=== PATIENT | female | born 1960 | race Caucasian/White ===

== ENCOUNTER 2020-11-30 19:57 | Emergency (ER) | payer MEDICARE, SELFPAY ==
[2020-11-30 19:56] VITALS: BP 136/103; PULSE 96; RESP 18; TEMP 36.8; O2SAT 98; BMI 41.1
[2020-11-30 20:03] VITALS: BMI 41.1
--- NOTE | 2020-11-30 20:04 | CT_ITS ---
PROCEDURE: CT ABDOMEN PELVIS W CON CLINICAL INDICATION: abd pain Right-sided COMPARISON: No exams were available for comparison TECHNIQUE: IV Contrast: 75ML OPTIRAY 350 Oral Contrast none given Axial images obtained with sagittal and coronal reformats. All CT scans at the facility use one or more dose reduction, viz: automated exposure control, ma/kV adjustment per patient size (including targeted exams where dose is matched to indication, i.e. head), or iterative reconstruction technique. FINDINGS: Lower thorax: No acute finding ABDOMEN: Liver: No masses or biliary dilatation. Gallbladder: Nondistended. No radio opaque stones. Pancreas: No masses or peripancreatic fluid collections. Spleen: unremarkable Adrenals: unremarkable Kidneys/ureters: unremarkable ABDOMEN & PELVIS: Stomach bowel: There is a moderately large sliding hiatal hernia. Stomach appears normal. The small bowel appears normal. The appendix is well-visualized and is normal caliber partially air-filled. There is moderate scattered stool and gas throughout the colon. Peritoneum: No abnormal fluid collections. No obvious inflammatory changes. No free air. Lymph nodes: No enlarged lymph nodes apparent. Vasculature: No evidence of abdominal aortic aneurysm. No retroperitoneal hemorrhage evident. Bones: There is a non recent compression fracture of L1 with approximately 75 percent loss of height centrally and anteriorly. PELVIS: Reproductive: The uterus is normal in size and in the midline. Bladder: The urinary bladder is partially decompressed but otherwise appears normal . There is no free fluid in the pelvis. Appendix: Normal IMPRESSION: 1. Moderately large hiatal hernia. 2. Normal appearing appendix 2. Old compression fracture L1 as noted Dictated by: Dr. Geronimo Viera MD 12/01/2020 08:42 Dr. Geronimo Viera MD in [place] 12/01/2020 08:42
--- NOTE | 2020-11-30 20:09 | HMH.EDNVD ---
ED Disposition Clinical Impression: Abdominal pain Qualifiers: Abdominal location: right upper quadrant Qualified Code(s): R10.11 - Right upper quadrant pain Disposition: Home, Self-Care Condition on Discharge: Good Instructions: DI for Acute Abdominal Pain Additional Instructions: see pcp for follow up and stop nsaif Referrals: PCP,No [Primary Care Provider] - - Critical Care Critical Care Time: No Attestation: On , the high probability of a clinically significant, sudden or life threatening deterioration of the following system(s) required my full and direct attention, intervention and personal management. The time I documented below is in addition to time spent performing reported procedures but includes the following listed in this critical care notation. Medical Decision Making - Medical Records Medical records reviewed: Yes: I reviewed the patient's medical records. - Juan Luis Inquiry Pt receiving controlled substance: No Vital Signs: 11/30/20 19:56 Temperature 98.2 F Temperature Source Oral Pulse Rate [Right] 96 H Respiratory Rate 18 Blood Pressure [Right Arm] 136/103 H Blood Pressure Mean [Right Arm] 114 Blood Pressure Source [Right Arm] Automatic Cuff Blood Pressure Position [Right Arm] Supine 02 Sat by Pulse Oximetry 98 Oxygen Delivery Method Room Air - Lab Data Lab results reviewed: Yes: I reviewed the patient's lab results. Lab Results 11/30/20 20:00: WBC 10.7, RBC 4.77, Hgb 14.4, Hct 44.7, MCV 93.7, MCH 30.2, MCHC 32.2, RDW 13.2, Plt Count 307, MPV 7.7, Neut % (Auto) 59.1, Lymph % (Auto) 33.5, [place] % (Auto) 5.4, Eos % (Auto) 1.3, Baso % (Auto) 0.7, Neut # (Auto) 6.3, Lymph # (Auto) 3.6, Ev[place] # (Auto) 0.6, Eos # (Auto) 0.1, Baso # (Auto) 0.1, ESR 21 11/30/20 20:00: Sodium 137, Potassium 3.2 L, Chloride 99, Carbon Dioxide 33 H, Anion Gap 8.2, BUN 26 H, Creatinine 1.00, Estimated Creat Clear 92, Estimated GFR 56 L, Est GFR ( Amer) 68, Glucose 108 H, Calcium 9.4, Total Bilirubin 0.4, AST 30, ALT 17, Alkaline Phosphatase 105, C-Reactive Protein 1.2, Total Protein 7.6, Albumin 4.7, Globulin 2.9, Albumin/Globulin Ratio 1.6, Amylase 54, Procalcitonin 0.038 11/30/20 20:00: Lipase 48 11/30/20 21:20: Urine Color Yellow, Urine Appearance Clear, Urine pH 6.0, Ur Specific [place] 1.015, Urine Protein Negative, Urine Glucose (UA) Negative, Urine Ketones Negative, Urine Blood Negative, Urine Nitrate Negative, Urine Bilirubin Negative, Urine Urobilinogen 0.2, Ur Leukocyte Esterase Negative, Urine WBC Occasional, Amorphous Sediment Trace Result diagrams: 11/30/20 20:00 11/30/20 20:00 Orders (Tests/Meds): ED MEDICATIONS Generic Name Dose Route Start Last Admin Trade Name Freq PRN Reason Stop Dose Admin Sodium Chloride 1,000 mls @ 999 mls/hr 11/30/20 20:15 11/30/20 20:13 Sod Chlor 0.9% 1000ml Bag IV 11/30/20 21:15 999 mls/hr .Q1H1M DEYVI Administration Sodium Chloride 8 ml 11/30/20 20:07 Sodium Chloride 0.9% 10ml Vial IV 12/30/20 20:06 NEEDED PRN dilute pepcid Discontinued Medications Generic Name Dose Route Start Last Admin Trade Name Freq PRN Reason Stop Dose Admin Acetaminophen/Codeine Phosphate 1 joe 11/30/20 21:47 Acetaminophen 300mg W/Codeine 30mg Take Home Pack (6) PO 11/30/20 21:48 ONCE ONE Famotidine 20 mg 11/30/20 20:07 11/30/20 20:12 Famotidine 20mg/2ml Vial IV 11/30/20 20:08 20 mg ONCE ONE Administration Iopamidol 75 ml 11/30/20 20:49 11/30/20 20:50 Iopamidol-370 (76%);100ml Bottle IV 11/30/20 20:50 75 ml ONCE ONE Administration Ketorolac Tromethamine 30 mg 11/30/20 20:04 11/30/20 20:12 Ketorolac 30mg/Ml Vial IV 11/30/20 20:05 30 mg ONCE ONE Administration Metoclopramide HCl 10 mg 11/30/20 20:07 11/30/20 20:12 Metoclopramide Hcl 10mg/2ml Vial IVP 11/30/20 20:08 10 mg ONCE ONE Administration Ondansetron HCl 4 mg 11/30/20 20:04 11/30/20 20:12 Ondansetron 4mg/2ml Vial IV 11/30/20 20:
[2020-11-30 20:12] LABS: Chloride 99 mmol/L (98-107); Potassium 3.2 mmoL/L (3.5-5.1); Sodium 137 mmol/L (136-145)
[2020-11-30 20:14] LABS: Basophils # 0.1 K/mm3 (0-0.2); Basophils % 0.7 % (0.1-2.0); Eosinophils # 0.1 K/mm3 (0.0-0.4); Eosinophils % 1.3 % (0.1-12.0); Hematocrit 44.7 % (37.0-47.0); Hemoglobin 14.4 g/dL (12.2-16.2); Lymphocytes # 3.6 K/mm3 (0.7-4.5); Lymphocytes % 33.5 % (10-50); Mean Corpuscular HGB Conc 32.2 g/dL (31.8-35.4); Mean Corpuscular Hemoglobin 30.2 pg (27.0-31.2); Mean Corpuscular Volume 93.7 fl (81-99); Mean Platelet Volume 7.7 fl (7.4-10.4); Monocytes # 0.6 K/mm3 (0.1-1.0); Monocytes % 5.4 % (1.7-9.3); Neutrophils # 6.3 K/mm3 (1.8-7.8); Neutrophils % 59.1 % (37.0-80.0); Platelet Count 307 K/mm3 (142-424); Red Blood Count 4.77 M/mm3 (4.20-5.40); Red Cell Distribution Width 13.2 % (11.5-17.5); White Blood Count 10.7 K/mm3 (4.8-10.8)
[2020-11-30 20:15] LABS: Alanine Aminotransferase 17 U/L (12-78); Albumin Level 4.7 g/dl (3.5-5.0); Albumin/Globulin Ratio 1.6 (1.1-1.8); Alkaline Phosphatase 105 U/L (38-126); Amylase 54 U/L (30-110); Anion Gap 8.2 mEq/L (5-15); Aspartate Amino Transferase 30 U/L (14-36); Bilirubin,Total 0.4 mg/dl (0.2-1.3); Blood Urea Nitrogen 26 mg/dl (7-17); Calcium 9.4 mg/dl (8.4-10.2); Carbon Dioxide 33 mmol/L (22.0-30.0); Creatinine Clearance Estimated 92 mL/min (50-200); Estimated Glomerular Filt Rate 56 ml/min (>60); GFR (African American) 68 ML/MIN (>60); Globulin 2.9 g/dL (1.3-3.2); Glucose 108 mg/dl (74-100); Lipase 48 U/L (23-300); Total Protein,Serum 7.6 g/dl (6.3-8.2)
[2020-11-30 20:21] LABS: C-Reactive Protein 1.2 mg/L (0-4)
[2020-11-30 20:43] LABS: Erythrocyte Sedimentation Rate 21 mm/hr (0-30)
[2020-11-30 20:49] LABS: Procalcitonin 0.038 ng/mL (0.0-2.0)
[2020-11-30 21:24] LABS: Microscopic, Urine URINE MICROSCOPIC (MICROSCOPIC)
[2020-11-30 21:26] LABS: Appearance,Urine CLEAR (Clear); Bilirubin,Urine Negative (Negative); Blood, Urine Negative (Negative); Color,Urine YELLOW (Yellow); Glucose,Urine (UA) Negative (Negative); Ketones,Urine Negative (Negative); Leukocyte Esterase,Urine Negative (Negative); Nitrate,Urine Negative (Negative); Protein,Urine Negative (Negative); Specific Gravity, Urine 1.015 (1.005-1.030); Urobilinogen,Urine 0.2 EU/dl (0.2)
[2020-11-30 21:29] LABS: WBC,Urine Occasional #/hpf (0-3)
[2020-11-30 21:30] LABS: Amorphous Sediment,Urine Trace /lpf
[2020-11-30 22:11] VITALS: BP 132/94; PULSE 92; RESP 18; TEMP 36.8; O2SAT 96
== END 2020-11-30 22:15 | disposition home or self-care (01) ==
PROVIDERS: Emergency Provider Emergency Medicine
DX: R10.11 Right upper quadrant pain (principal); R10.13 Epigastric pain; K21.9 Gastro-esophageal reflux disease without esophagitis
CPT/HCPCS: 74177; 80053; 81001; 82150; 83690; 84145; 85025; 85651; 86140; 96365; 96375; 99283; J2405; Q9967

== ENCOUNTER 2020-12-05 16:45 | Emergency (ER) | payer MEDICARE, SELFPAY ==
[2020-12-05 16:47] VITALS: BP 147/84; PULSE 87; RESP 20; TEMP 36.8; O2SAT 96; BMI 40.2
--- NOTE | 2020-12-05 16:59 | US_ITS ---
PROCEDURE: US ABDOMEN LIMITED CLINICAL INDICATION: RUQ pain COMPARISON: CT CT ABDOMEN PELVIS W CON from 11/30/2020 FINDINGS: PANCREAS: Pancreas is not well delineated due to overlying bowel gas. . LIVER: No focal liver lesions demonstrated. Homogeneous echogenicity. No intrahepatic biliary ductal dilatation evident. There is appropriate direction of blood flow within a non dilated portal vein RIGHT KIDNEY: Unremarkable. Normal size and echogenicity. No hydronephrosis GALLBLADDER: No gallstones, gallbladder wall thickening, pericholecystic fluid, or biliary dilatation. IMPRESSION: Unremarkable limited abdominal ultrasound as detailed above disc Poor visualization of the pancreas Dictated by: Zac Pruitt MD 12/05/2020 17:58 Zac Pruitt MD in [place] 12/05/2020 17:58
[2020-12-05 17:00] VITALS: BP 128/73; PULSE 76; O2SAT 98
--- NOTE | 2020-12-05 17:17 | HMH.EDGENADL ---
ED Disposition Clinical Impression: Right upper quadrant pain Disposition: Home, Self-Care Condition on Discharge: Good Additional Instructions: Follow-up with your primary care physician and gastroenterology for a HIDA scan. Otherwise return to the emergency department for worsening pain vomiting or any other concerns within the next 8 hours Prescriptions: Naproxen Sodium [Naproxen 220mg Tab] 220 mg PO TID 10 Days #20 tab Transmission Status[id number] Ondansetron [Zofran 4mg ODT] 4 mg PO TIDP PRN #15 tab PRN Reason: Nausea Transmission Status[id number] Referrals: Ronal Duong APRN [Primary Care Provider] - - Critical Care Critical Care Time: No Attestation: On 12/05/20, the high probability of a clinically significant, sudden or life threatening deterioration of the following system(s) required my full and direct attention, intervention and personal management. The time I documented below is in addition to time spent performing reported procedures but includes the following listed in this critical care notation. Medical Decision Making - Medical Records Medical records reviewed: Yes: I reviewed the patient's medical records. - Juan Luis Inquiry Pt receiving controlled substance: No Vital Signs: 12/05/20 16:47 12/05/20 17:00 Temperature 98.3 F Temperature Source Oral Pulse Rate 76 Pulse Rate [Left Radial] 87 Respiratory Rate 20 Blood Pressure 128/73 Blood Pressure [Right Arm] 147/84 H Blood Pressure Mean 96 Blood Pressure Mean [Right Arm] 105 Blood Pressure Source [Right Arm] Automatic Cuff 02 Sat by Pulse Oximetry 96 98 Oxygen Delivery Method Room Air - Lab Data Lab Results 12/05/20 17:47: WBC 10.4, RBC 4.85, Hgb 15.1, Hct 44.2, MCV 91.1, MCH 31.2, MCHC 34.2, RDW 13.3, Plt Count 292, MPV 7.6, Neut % (Auto) 64.5, Lymph % (Auto) 27.9, [place] % (Auto) 5.9, Eos % (Auto) 1.2, Baso % (Auto) 0.5, Neut # (Auto) 6.7, Lymph # (Auto) 2.9, [place] # (Auto) 0.6, Eos # (Auto) 0.1, Baso # (Auto) 0.1 12/05/20 17:47: Sodium 137, Potassium 3.9, Chloride 102, Carbon Dioxide 30, Anion Gap 8.9, BUN 26 H, Creatinine 1.40 H, Estimated Creat Clear 64, Estimated GFR 38 L, Est GFR ( Amer) 46 L, Glucose 97, Calcium 10.0, Total Bilirubin 0.5, AST 32, ALT 15, Alkaline Phosphatase 98, Total Protein 8.1, Albumin 4.8, Globulin 3.3 H, Albumin/Globulin Ratio 1.5, Lipase 38 Result diagrams: 12/05/20 17:47 12/05/20 17:47 Orders (Tests/Meds): ED MEDICATIONS Generic Name Dose Route Start Last Admin Trade Name Freq PRN Reason Stop Dose Admin Sodium Chloride 1,000 mls @ 999 mls/hr 12/05/20 17:00 12/05/20 17:48 Sod Chlor 0.9% 1000ml Bag IV 12/05/20 18:00 999 mls/hr .Q1H1M DEYVI Administration Discontinued Medications Generic Name Dose Route Start Last Admin Trade Name Freq PRN Reason Stop Dose Admin Morphine Sulfate 4 mg 12/05/20 16:59 12/05/20 17:46 Morphine 4mg/Ml Syringe IV 12/05/20 17:00 4 mg ONCE ONE Administration Ondansetron HCl 4 mg 12/05/20 16:59 12/05/20 17:47 Ondansetron 4mg Odt SL 12/05/20 17:00 4 mg ONCE ONE Administration Medical Decision Narrative: 60-year-old female presents with right upper quadrant pain. She had recent CT abdomen pelvis that was negative and there is no new changes since that time. It is recommended that she obtain right upper quadrant ultrasound to assess her gallbladder today. No fever no chills. Laboratory evaluation as well obtained. I doubt perforation obstruction or ischemia based on physical exam and atypical symptoms for pulmonary embolism as well. Given morphine for symptomatic relief Bladder ultrasound shows no evidence of acute cholecystitis. Plan to recommend outpatient evaluation for HIDA scan follow-up with GI. Laboratory evaluation otherwise unremarkable except for acute kidney injury. Recommend fluids as well and discharged with return precautions General Adul
[2020-12-05 17:58] LABS: Basophils # 0.1 K/mm3 (0-0.2); Basophils % 0.5 % (0.1-2.0); Eosinophils # 0.1 K/mm3 (0.0-0.4); Eosinophils % 1.2 % (0.1-12.0); Hematocrit 44.2 % (37.0-47.0); Hemoglobin 15.1 g/dL (12.2-16.2); Lymphocytes # 2.9 K/mm3 (0.7-4.5); Lymphocytes % 27.9 % (10-50); Mean Corpuscular HGB Conc 34.2 g/dL (31.8-35.4); Mean Corpuscular Hemoglobin 31.2 pg (27.0-31.2); Mean Corpuscular Volume 91.1 fl (81-99); Mean Platelet Volume 7.6 fl (7.4-10.4); Monocytes # 0.6 K/mm3 (0.1-1.0); Monocytes % 5.9 % (1.7-9.3); Neutrophils # 6.7 K/mm3 (1.8-7.8); Neutrophils % 64.5 % (37.0-80.0); Platelet Count 292 K/mm3 (142-424); Red Blood Count 4.85 M/mm3 (4.20-5.40); Red Cell Distribution Width 13.3 % (11.5-17.5); White Blood Count 10.4 K/mm3 (4.8-10.8)
[2020-12-05 19:05] LABS: Chloride 102 mmol/L (98-107); Potassium 3.9 mmoL/L (3.5-5.1); Sodium 137 mmol/L (136-145)
[2020-12-05 19:07] LABS: Alanine Aminotransferase 15 U/L (12-78); Alkaline Phosphatase 98 U/L (38-126); Aspartate Amino Transferase 32 U/L (14-36); Bilirubin,Total 0.5 mg/dl (0.2-1.3); Blood Urea Nitrogen 26 mg/dl (7-17); Creatinine Clearance Estimated 64 mL/min (50-200); Estimated Glomerular Filt Rate 38 ml/min (>60); GFR (African American) 46 ML/MIN (>60)
[2020-12-05 19:08] LABS: Albumin Level 4.8 g/dl (3.5-5.0); Albumin/Globulin Ratio 1.5 (1.1-1.8); Anion Gap 8.9 mEq/L (5-15); Carbon Dioxide 30 mmol/L (22.0-30.0); Globulin 3.3 g/dL (1.3-3.2); Glucose 97 mg/dl (74-100); Lipase 38 U/L (23-300); Total Protein,Serum 8.1 g/dl (6.3-8.2)
[2020-12-05 19:43] VITALS: BP 143/86; PULSE 84; RESP 16; TEMP 36.8; O2SAT 97
== END 2020-12-05 19:51 | disposition home or self-care (01) ==
PROVIDERS: Emergency Provider Emergency Medicine; PCP Nurse Practitioner Family
DX: R10.11 Right upper quadrant pain (principal); K21.9 Gastro-esophageal reflux disease without esophagitis; I10 Essential (primary) hypertension; E66.01 Morbid (severe) obesity due to excess calories; Z68.41 Body mass index [BMI] 40.0-44.9, adult
CPT/HCPCS: 76705; 80053; 83690; 85025; 96365; 96375; 99283

== ENCOUNTER → 2020-12-14 08:50 | Outpatient (CLI) | payer MEDICARE, SELFPAY ==
--- NOTE | 2020-12-14 08:53 | CA_ITS ---
APPROVED REPORT EXAM: Comprehensive 2D, Doppler, and color-flow Echocardiogram [employer] Professor: Na Moran RVT Ht: 5 ft 1 in Wt: 212lbs BSA: 1.94 BP: 138/98 mmHg Indications: GASTON,THANG,SOA,OBESITY TDS-BODYHABITUS 2D Dimensions LVOT 1.73 cm (M/F) 1.5-2.5 LA Volume 19.80 mL LA Volume Index 10.25 mL/m2 (M/F) 16-34 M-Mode Dimensions RVDd 2.46 cm (0.9-2.6) LA Diam 3.30 cm (1.9-4.0) LVDd 4.14 cm (3.5-5.7) Ao Diam 2.66 cm (2.0-3.7) LVDs 2.68 cm (3.5-5.7) IVSd 1.11 cm (0.6-1.1) PWd 0.89 cm (0.6-1.1) EF (Teich) 65.10% FS 35.30% EDV (Teich) 75.90 mL TAPSE 2.00 (<1.7) ESV (Teich) 26.50 mL LV Diastology E Decel Time 263.00 (160-240 msec) E/A Ratio 0.5 MED E' 6.60 (< 7 cm/sec) E'/MED E' Ratio 5.76 (>14) LAT E' 7.00 (<10 cm/sec) E/LAT E' Ratio 5.43 (>14) Mitral Valve MV E Max Farhan. 38.00 (40-130 cm/s) MV A Velocity 72.00 (40-130 cm/s) E/A Ratio 0.53 MV Decel. Time 263.00 (160-240 ms) MV PHT 77.00 ms Pulmonary Valve PV Peak Velocity 71.00 (50-150 cm/s) Tricuspid Valve TR P. Velocity 227.00 cm/s RAP Estimate 10.00 mmHg RVSP 30.50 mmHg Left Ventricle Left atrium is mildly enlarged, left ventricle is normal size, mild concentric left ventricular hypertrophy, visually estimated ejection fraction 55% with no regional wall motion abnormality, grade 1 diastolic dysfunction seen without tissue Doppler evidence of raise left atrial pressure. Right Ventricle Right atrium and right ventricle are normal size and contractility. Aortic Valve Aortic valve is minimally thickened and fibrosed, there is no aortic stenosis or aortic insufficiency. Mitral Valve Mitral valve grossly normal, there is mild mitral regurgitation. Tricuspid Valve Tricuspid valve grossly normal, there is mild tricuspid regurgitation, tricuspid regurgitation jet velocity is inadequate for calculation of the right ventricular systolic pressure. Pulmonic Valve Pulmonic valve is poorly visualized. Great Vessels Aortic root is normal size. Pericardium No significant pericardial effusion noted. Conclusion 1. Mildly enlarged left atrium, normal left ventricular size, mild concentric left ventricular hypertrophy, visually estimated ejection fraction 55% with no regional wall motion abnormality, grade 1 diastolic dysfunction seen without tissue Doppler evidence of raise left atrial pressure. 2. Mild mitral and tricuspid regurgitation. 3. No significant pericardial effusion noted. Electronically signed by : Chris Storey, 12/14/2020 14:50:53
--- NOTE | 2020-12-14 09:35 | NM_ITS ---
PROCEDURE: NM HEPATOBILIARY W PHARM CLINICAL INDICATION: RUQ pain Right upper quadrant pain COMPARISON: US US ABDOMEN LIMITED from 12/05/2020 TECHNIQUE: DOSE: 7.98 mCi technetium Choletec. Ensure was used for fatty meal FINDINGS: Homogeneous activity is present within the hepatic parenchyma. Activity is present in the gallbladder by 45 minutes. Activity is present in the small bowel by 5 minutes. The gallbladder ejection fraction is calculated to be 29 percent. No pain reported with fatty meal. IMPRESSION: No evidence of common or cystic duct obstruction. There is slight delayed gallbladder visualization seen at 45 minutes. The gallbladder ejection fraction is also slightly low at 29 percent normal being greater than 35 percent. These findings could indicate gallbladder dyskinesia. Please correlate with clinical findings. Dictated by: Zac Pruitt MD 12/17/2020 12:22 Zac Pruitt MD in [place] 12/17/2020 12:22
== END ==
PROVIDERS: PCP Nurse Practitioner Family; Visit Provider Nurse Practitioner Family
DX: R06.00 Dyspnea, unspecified (principal); R10.11 Right upper quadrant pain
CPT/HCPCS: 78227; 93306; A9537

== ENCOUNTER 2020-12-31 13:00 | Outpatient (RCR) | payer MEDICARE, SELFPAY ==
--- NOTE | 2020-12-25 10:13 | HMH.PTOPWND ---
Rehab Outpt Wound Evaluation Rehab OP Wound Evaluation Start: 12/25/20 09:51 Freq: Status: Active Protocol: Document 12/25/20 10:06 ARIES (Rec: 12/25/20 10:13 ARIES [id number]) Electronically Signed By Fausto Tristan, PT 12/25/20 10:06 Subjective/History History History Pt is 60 yowf who presents with c/o B LE edema, for years and years. She reports increased feelings of heaviness and tightness with edema worse when sitting in dependent position. She also has increased tenderness to palpation B in the gaitor area . She reports she had not been taking diruetics for many years now, but has been taking them as recently prescribed which has helped reduce her swelling. She reports hx of chronic low back pain, HTN, GERD, and is planning for a CCY soon. Subjective Subjective She reports pain in B LE at worst is 7/10. She also reports intermittent tingling and pain that is worse with increased edema. No pitting edema noted at this time, tenderness to palpation 1/4. Lymphedema Eval Classification of Lymphedema Secondary Lymphedema Yes: Likely CHF Stemmer's sign Stemmer's Sign no Stage of Lymphedema Lymphedema stages Stage 0 (subjective c/o heaviness and aching) Skin Changes Dry Skin Yes Skin Folds Yes Redness Yes Brittle Uneven Nails Yes Other Changes Yes Pain Scale Pain Scale (0-10) 7 Affected Extremities Areas Affected by Lymphedema/Edema Right Lower Extremity,Left Lower Extremity Manual Lymphatic Drainage Treatment Area MLD Treatment Area Right Lower Extremity,Left Lower Extremity Wound Problems/Impairments Impairments Problems/Impairmments Palpation Tenderness,Impaired Endurance,Impaired Walking, Impaired Standing,Increased Edema,Lymphedema Present, Subjective C/O Pain,Impaired Self Care/Self Managem
== END 2020-12-31 13:05 | disposition home or self-care (01) ==
LOC: PT 13:00
PROVIDERS: PCP Nurse Practitioner Family; Visit Provider Urology
DX: I89.0 Lymphedema, not elsewhere classified (principal)
CPT/HCPCS: 97162

== ENCOUNTER → 2021-01-02 09:48 | Outpatient (CLI) | payer MEDICARE, SELFPAY ==
--- NOTE | 2021-01-02 10:46 | ECG_ITS ---
APPROVED REPORT Exam: Resting ECG HR:87 bpm ECG Measurements Heart Rate 87 AXES NV 142 P 83 QRSd 84 QRS 26 QT 374 T 68 QTc 450 Conclusion Normal sinus rhythm ST abnormality, possible electrolyte effect Abnormal ECG Electronically signed by : Vlad Pang, 01/02/2021 16:56:21
[2021-01-02 11:14] LABS: Chloride 101 mmol/L (98-107); Sodium 137 mmol/L (136-145)
[2021-01-02 11:17] LABS: Alanine Aminotransferase 19 U/L (12-78); Albumin Level 4.8 g/dl (3.5-5.0); Albumin/Globulin Ratio 1.7 (1.1-1.8); Alkaline Phosphatase 99 U/L (38-126); Anion Gap 14.2 mEq/L (5-15); Aspartate Amino Transferase 29 U/L (14-36); Bilirubin,Total 0.6 mg/dl (0.2-1.3); Blood Urea Nitrogen 24 mg/dl (7-17); Carbon Dioxide 26 mmol/L (22.0-30.0); Estimated Glomerular Filt Rate 56 ml/min (>60); GFR (African American) 68 ML/MIN (>60); Globulin 2.8 g/dL (1.3-3.2); Glucose 105 mg/dl (74-100); Potassium 4.2 mmoL/L (3.5-5.1); Total Protein,Serum 7.6 g/dl (6.3-8.2)
[2021-01-02 12:11] LABS: Coronavirus 19 IgG Antibody Positive (Negative); Coronavirus 19 IgM Antibody Negative (Negative)
== END ==
PROVIDERS: Visit Provider Surgery
DX: R10.11 Right upper quadrant pain (principal)
CPT/HCPCS: 36415; 80053; 86328; 93005

== ENCOUNTER 2021-01-02 10:44 | Emergency (ER) | payer MEDICARE, SELFPAY ==
[2021-01-02] VITALS (7 sets, daily range): BP systolic 104–116; BP diastolic 53–65; PULSE 58–82; RESP 13–18; TEMP 36.4; O2SAT 92–98; BMI 36.8
--- NOTE | 2021-01-02 10:45 | PC.NURSE ---
fingerstick 113 mg/dl
--- NOTE | 2021-01-02 10:50 | HMH.EDGENADL ---
ED Disposition Clinical Impression: Vasovagal syncope Disposition: Home, Self-Care Condition on Discharge: Good Instructions: DI for Syncope in Adults (Fainting) Additional Instructions: Return to the emergency department if fainting recurs. Referrals: Ronal Duong APRN [Primary Care Provider] - - Critical Care Critical Care Time: No Attestation: On , the high probability of a clinically significant, sudden or life threatening deterioration of the following system(s) required my full and direct attention, intervention and personal management. The time I documented below is in addition to time spent performing reported procedures but includes the following listed in this critical care notation. Medical Decision Making - Juan Luis Inquiry Pt receiving controlled substance: No Vital Signs: 01/02/21 10:55 01/02/21 11:01 01/02/21 11:30 Temperature 97.6 F Temperature Source Oral Pulse Rate 82 58 L Pulse Rate [Left Radial] 78 Respiratory Rate 16 14 13 Blood Pressure 109/58 L 116/54 L Blood Pressure [Right Arm] 109/58 L Blood Pressure Mean 75 Blood Pressure Mean [Right Arm] 75 Blood Pressure Source [Right Arm] Automatic Cuff Blood Pressure Position [Right Arm] Sitting 02 Sat by Pulse Oximetry 92 L 92 L 97 Oxygen Delivery Method Room Air Room Air - Lab Data Lab Results 01/02/21 10:53: WBC 11.7 H, RBC 4.84, Hgb 14.9, Hct 45.0, MCV 93.1, MCH 30.8, MCHC 33.1, RDW 13.6, Plt Count 352, MPV 7.9, Neut % (Auto) 52.5, Lymph % (Auto) 40.6, [place] % (Auto) 5.1, Eos % (Auto) 1.3, Baso % (Auto) 0.5, Neut # (Auto) 6.2, Lymph # (Auto) 4.8 H, [place] # (Auto) 0.6, Eos # (Auto) 0.2, Baso # (Auto) 0.1 01/02/21 10:53: Sodium 136, Potassium 3.1 L D, Chloride 101, Carbon Dioxide 23, Anion Gap 15.1 H, BUN 24 H, Creatinine 1.10 H, Estimated Creat Clear 83, Estimated GFR 50 L, Est GFR ( Amer) 61, Glucose 171 H D, Calcium 9.9 Result diagrams: 01/02/21 10:53 01/02/21 10:53 Orders (Tests/Meds): ED MEDICATIONS Discontinued Medications Generic Name Dose Route Start Last Admin Trade Name Madhu PRN Reason Stop Dose Admin Ondansetron HCl 4 mg 01/02/21 11:01 01/02/21 11:08 Ondansetron 4mg/2ml Vial IV 01/02/21 11:02 4 mg ONCE ONE Administration Potassium Chloride 40 meq 01/02/21 11:26 01/02/21 11:49 Potassium Chloride 20meq Tab PO 01/02/21 11:27 40 meq ONCE ONE Administration Sodium Chloride 1,000 ml 01/02/21 11:02 01/02/21 11:09 Sodium Chloride 0.9% 1000ml Bag IV 01/02/21 11:03 1,000 ml BOLUS ONE Administration - ECG Data Tracing #1 EKG interpreted by Antonio Torres MD: Rhythm: sinus Rate: 87 [place]: normal Ectopy: none Conduction: normal ST Segment Changes: none T Wave Changes: none Q Waves: none No evidence of acute ischemia or injury Baseline wander present, but I consider the EKG adequate for accurate interpretation. Prior electrocardiagrams reviewed. No change from prior tracings. - Reevaluation(s) Time: 11:54 Reevaluation #1: Feeling better, states she is getting her energy back. Pallor has markedly improved. Time: 13:19 Reevaluation #3: Feels good, I'm waiting to get released . General Adult HPI - General Stated complaint: syncopal Time Seen by Provider: 01/02/21 10:50 - History of Present Illness HPI narrative: The patient is brought from the lab after syncopal episode. Says that she felt fine this morning before coming to have her blood drawn for preoperative testing for cholecystectomy this Thursday. She says she began feeling nauseated and sweaty. No chest pain or shortness of breath. Currently just feels very weak and slightly nauseated. Has a history of getting presyncopal when she has blood drawn, but this was her first episode of syncope when getting blood drawn. She also has a stress test scheduled for tomorrow. - Related Data Home Medications Medication Instructions Recorded Confirmed Furosemide [Furosem
[2021-01-02 11:12] LABS: Chloride 101 mmol/L (98-107); Sodium 136 mmol/L (136-145)
[2021-01-02 11:13] LABS: Potassium 3.1 mmoL/L (3.5-5.1)
[2021-01-02 11:15] LABS: Blood Urea Nitrogen 24 mg/dl (7-17); Creatinine Clearance Estimated 83 mL/min (50-200); Estimated Glomerular Filt Rate 50 ml/min (>60); GFR (African American) 61 ML/MIN (>60)
[2021-01-02 11:16] LABS: Anion Gap 15.1 mEq/L (5-15); Basophils # 0.1 K/mm3 (0-0.2); Basophils % 0.5 % (0.1-2.0); Calcium 9.9 mg/dl (8.4-10.2); Carbon Dioxide 23 mmol/L (22.0-30.0); Eosinophils # 0.2 K/mm3 (0.0-0.4); Eosinophils % 1.3 % (0.1-12.0); Glucose 171 mg/dl (74-100); Hemoglobin 14.9 g/dL (12.2-16.2); Lymphocytes # 4.8 K/mm3 (0.7-4.5); Lymphocytes % 40.6 % (10-50); Mean Corpuscular HGB Conc 33.1 g/dL (31.8-35.4); Mean Corpuscular Hemoglobin 30.8 pg (27.0-31.2); Mean Corpuscular Volume 93.1 fl (81-99); Mean Platelet Volume 7.9 fl (7.4-10.4); Monocytes # 0.6 K/mm3 (0.1-1.0); Monocytes % 5.1 % (1.7-9.3); Neutrophils # 6.2 K/mm3 (1.8-7.8); Neutrophils % 52.5 % (37.0-80.0); Platelet Count 352 K/mm3 (142-424); Red Blood Count 4.84 M/mm3 (4.20-5.40); Red Cell Distribution Width 13.6 % (11.5-17.5); White Blood Count 11.7 K/mm3 (4.8-10.8)
== END 2021-01-02 13:55 | disposition home or self-care (01) ==
PROVIDERS: Emergency Provider Emergency Medicine; PCP Nurse Practitioner Family
DX: R55 Syncope and collapse (principal); I10 Essential (primary) hypertension; Z20.822 Contact with and (suspected) exposure to COVID-19; K21.9 Gastro-esophageal reflux disease without esophagitis
CPT/HCPCS: 36415; 80048; 80053; 85025; 86328; 93005; 96365; 96375; 99282; J2405

== ENCOUNTER → 2021-01-02 20:06 | Outpatient (CLI) | payer MEDICARE, SELFPAY | PROVIDERS: PCP Nurse Practitioner Family; Visit Provider Nurse Practitioner Family | DX: G47.33 Obstructive sleep apnea (adult) (pediatric) (principal); I10 Essential (primary) hypertension; R40.0 Somnolence; R06.83 Snoring; E66.9 Obesity, unspecified | CPT/HCPCS: 95810 ==

== ENCOUNTER 2021-01-04 06:44 | Day surgery (SDC) | payer MEDICARE, SELFPAY ==
[2021-01-01 12:10] VITALS: BMI 39.6
[2021-01-04] VITALS (11 sets, daily range): BP systolic 122–151; BP diastolic 60–102; PULSE 73–100; RESP 16–18; TEMP 36.4–42.7; O2SAT 90–99
--- NOTE | 2021-01-04 09:18 | P.PN_ITS ---
[facility] Anesthesia Checklist - Patient Identification Patient Identification: Arm Band - Structural Data Admitted From: Home Planned Operative Procedure/s: Laparoscopic Cholecystectomy Consent for Planned Operative Procedure(s) Verified: Yes Verified Documents: Surgical Consent, History and Physical - NPO Status Verified Time NPO: 00:00 - Additional verifications Anesthesia Reactions: No Hx Blood Transfusions: No Blood Transfusion Reaction: No - Airway Assessment C-Spine Mobility Assessed: Yes (mp2) TMJ Mobility Assessed: Yes Dentition: Edentulous - Neurological Assessment Level of Consciousness: Awake, Alert - Anesthesia Plan Anesthesia Risk discussed: Yes Anesthesia Plan: Verified ASA Class: II Anesthesia Type: General [facility] History I have reviewed the patient's past medical history: Yes Medical History: Reports:: Gastroesophageal Reflux Disease(GERD), Hypertension Denies:: Cancer, Diabetes Mellitus Type 1, Diabetes Mellitus Type 2, Internal Pacemaker, MRSA, Seizures *Have you ever received a pneumonia vaccine?: No *Have you received a flu vaccine this season?: No Other Medical History: Reports: Arthritis. Denies: Blood Transfusion Reaction Anesthesia experience/problems:: nac Other Surgeries: Yes: Colonoscopy, Tubal Ligation. No: Pacemaker Amputation: No - *Social History Last grade of school completed: 7th or 8th Smoking Status: Never smoker Alcohol Intake: never Substance Use Type: former substance user, opiates *Occupational Status:: unemployed Household Members: spouse *Travel in the last 8 weeks: None Family Hx:: Cancer, Coronary Artery Disease, Heart Attack
--- NOTE | 2021-01-04 09:50 | HMH.OPNOTE ---
Date of procedure: 01/04/21 Pre-op Diagnosis:: Biliary dyskinesia Post-op Diagnosis:: Chronic cholecystitis Procedure performed:: Laparoscopic cholecystectomy Surgeon:: Brian Lamb MD SENIOR WATER/WASTEWATER ENGINEER:: Mj Strange Anesthesia: GETNikita Estimated blood loss (mL): 10 Operative findings:: Significant pericholecystic fat stranding Infundibular thickening Operative note:: After informed consent was obtained, the patient was taken to the operating room and placed in the supine position. General anesthesia was induced and the abdomen was prepped and draped in a sterile fashion. After infiltration with local anesthetic an infraumbilical incision was made. A Veress needle was placed in position. The abdomen was insufflated. A 5 mm optical trocar was placed in position. Under direct visualization, a 12 mm trocar was placed in the subxiphoid position and 2 additional 5 mm trocars were placed in the right upper quadrant. The gallbladder was elevated up and over the liver margin. The tissue around the cystic duct was carefully dissected. 3 clips were placed proximally and the duct was transected with harmonic jl. Harmonic jl were then utilized to dissect the gallbladder away from the liver margin with careful attention to the control of the cystic artery. The gallbladder was placed in a retrieval bag and removed through the subxiphoid trocar site. The right upper quadrant was thoroughly irrigated. No active bleeding or bile leak was noted. Fascia at the subxiphoid trocar site was reapproximated utilizing the NeoClose device. The remaining trocars were removed. All wounds were irrigated and skin was closed with 4-0 Monocryl in a subcuticular fashion. Steri-Strips were applied. The patient's anesthetic agents were reversed and extubation was completed prior to transfer to recovery in stable condition. Condition: stable Disposition: PACU Specimens:: Gallbladder Complications:: No immediate
--- NOTE | 2021-01-04 10:03 | HMH.ANESI ---
[facility] Anesthesia Record Part I Intake, IV Amount: 1,000 Estimated blood loss (mL): 10 Urine output (mL): 0 Blood Products used (#): none Blood Pressure: 124/102 SaO2: 90 Pulse Rate: 100 Respiratory Rate: 16 Temperature: 99.4 F Patient is:: Drowsy, Stable Stable to PACU at:: 10:00
--- NOTE | 2021-01-04 11:33 | PC.NURSE ---
ecouraged cough and deep breathing
--- NOTE | 2021-01-04 12:18 | HMH.ANESII ---
[facility] Anesthesia Record Part II Discharge Time: 10:30 Destination: Surgical Day Care (OP Surgery) PACU nurse assessment reviewed?: Yes Patient Condition:: Good Anesthesia Complications:: None Swallowing reflex intact?: Yes Cyanosis?: No Blood Pressure: 131/88 Pulse Rate: 88 Temperature: 98 F Mental Status: Alert & Oriented Pain level:: 4 Nausea and/or vomitting:: None Intake, IV Amount: 0
== END 2021-01-04 11:01 | disposition home or self-care (01) ==
LOC: OR 06:45
PROVIDERS: PCP Nurse Practitioner Family; Visit Provider Surgery
PROC: 0FT44ZZ Resection of Gallbladder, Percutaneous Endoscopic Approach (ICD-10-PCS; CPT 47562; principal; 2021-01-04 08:30)
DX: K81.1 Chronic cholecystitis (principal); K21.9 Gastro-esophageal reflux disease without esophagitis; I10 Essential (primary) hypertension; F11.11 Opioid abuse, in remission; Z80.9 Family history of malignant neoplasm, unspecified; Z82.3 Family history of stroke; Z82.49 Family history of ischemic heart disease and other diseases of the circulatory system; Z79.899 Other long term (current) drug therapy
CPT/HCPCS: 47562; 88304; 96374; J2405; J2710

== ENCOUNTER → 2021-03-27 07:07 | Outpatient (CLI) | payer MEDICARE, SELFPAY ==
--- NOTE | 2021-03-27 | CA_ITS ---
APPROVED REPORT Exam: Pharmacologic Technologist: darryl cao, Ht: 5 ft 1 in Wt: 220 lbs BSA: 1.97 m2 HR: 52 bpm BP: 145/78 mmHg Indications: CP, SOB Medical History Medications: Lisinopril,,,,, Omeprazole,,,,, Lasix,,,,, Naproxen,,,,, Allergies: NKA Cardiac Risk Factors: HTN Stress Test Details Test: LEXISCAN HR Resting HR: 60 bpm Max Heart Rate (APMHR): 159.493195 bpm Max HR Achieved: 115 bpm Target HR (85% APMHR): 135.204395 bpm % of APMHR: 72.33 Recovery HR: 60 bpm BP Resting BP: 145/78 mmHg Max BP: 156/67 mmHg Recovery BP: 95.0/49.0 mmHg ECG Resting ECG: Sinus joão, low voltage QRS in precordial leads Clinical Exercise duration: 04:08 min Highest Stage Achieved: Exercise capacity: 1.0 METs Stress ECG Conclusion Patient had a delayed hypotension with marked sinus joão after Lexiscan injection. Tyron Clayton gave patient 100mg aminophylline via IV. Lightheaded near syncope so patient placed in trendelenburg 4 minutes after lexiscan injection. After 15 minutes of aminophylline BP was 141/65. She also had SOA, stomach cramps, and headache at peak infusion that resolved during recovery. Arhhythmia/ Ectopy: Sinus tach, sinus joão, and 4 beat alessandra of SVT. NS ST-T changes inferiorly. NS T wave changes anterolaterally. Non-diagnostic EKG response, no chest pain with Lexiscan stress. Images reported separately. Test Summary REST 04:06 . . 60 . 145/ 78 . . Stage 1 01:00 . . 111 . . . . Stage 2 01:00 . . 112 . 155/ 84 . . Stage 3 01:00 . . 85 . 156/ 67 . . Stage 4 01:00 . . 57 . . . . Stage 4 01:08 . . 62 . . . Stop exercise at 04:08 RECOVERY 01:00 . . 78 . 95/ 49 . . RECOVERY 02:00 . . 48 . 105/ 51 . . RECOVERY 03:00 . . 45 . 105/ 51 . . RECOVERY 04:00 . . 42 . 105/ 51 . . RECOVERY 05:00 . . 63 . 105/ 51 . . RECOVERY 06:00 . . 54 . 105/ 51 . . RECOVERY 07:00 . . 56 . 97/ 52 . . RECOVERY 08:00 . . 53 . 97/ 52 . . RECOVERY 09:00 . . 56 . 97/ 52 . . RECOVERY 10:00 . . 55 . 97/ 52 . . RECOVERY 11:00 . . 62 . 104/ 66 . . RECOVERY 12:00 . . 57 . 122/ 51 . . RECOVERY 12:07 . . 57 . 122/ 51 . . Electronically signed by : Chris Storey, 03/28/2021 14:13:14
--- NOTE | 2021-03-27 07:07 | NM_ITS ---
APPROVED REPORT Exam: Nuclear Stress Test Indication: Chest pain, SOB, Palpitations, HTN, Family history Patient Location: Outpatient Stress Tech: Leticia CruzAnna [place] Tech:Janett Franco, ARRT, RT (R)(N) Ht: 5 ft 1 in Wt: 220 lbs Bra Size: 40D HR: 52 bpm BP: 145/78 mmHg BSA: 1.97 m2 BMI: 41.5 History: Chest pain, SOB, Palpitations, HTN, Family history Procedure: Patient received a 0.4 mg of intravenous Lexiscan, resting heart rate 52 bpm, resting blood pressure 145/78 mmHg, with Lexiscan maximum heart rate achived was 115 bpm which is Less than 85 % of the maximum predicted heart rate and blood pressure was 155/84 mmHg. With Lexiscan, patient denied any complaint of chest pain. Electrocardiogram Resting electrocardiogram showed sinus rhythm, with Lexiscan there is less than 1.[address] segment depression noted from the baseline EKG. The EKG portion of the Lexiscan is nondiagnostic. Cardiac Stress and Resting SPECT Images: Cardiac Stress and Resting SPECT images were obtained using technetium 99m Myoview 32.2 mCi stress and 10.88 mCi at rest. Gated SPECT for analysis of segmental wall motion and calculation of the ejection fraction also done. Prone images were also obtained. Cardiac stress and resting SPECT images show uniform myocardial activity without segmental perfusion abnormality, computer derived ejection fraction is 55% with no regional wall motion abnormality, right ventricle is normal size and contractility. Conclusion: 1. The EKG portion of the Lexiscan is nondiagnostic. 2. No scintigraphic evidence of reversible ischemia seen, computer derived ejection fraction is 55% with no regional wall motion abnormality, right ventricle is normal size and contractility. 3. Normal Lexiscan Myoview study. Electronically signed by : Chris Storey, 03/28/2021 14:17:05
--- NOTE | 2021-03-27 08:50 | HMH.ITSHM ---
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 []NAPROXEN LISINOPRIL OMEPRAZOLE FUROSEMIDE
== END ==
LOC: RAD 07:07
PROVIDERS: PCP Nurse Practitioner Family; Visit Provider Urology
DX: E66.01 Morbid (severe) obesity due to excess calories (principal); I10 Essential (primary) hypertension; I51.89 Other ill-defined heart diseases; R00.2 Palpitations; R06.02 Shortness of breath; R60.0 Localized edema; Z68.41 Body mass index [BMI] 40.0-44.9, adult
CPT/HCPCS: 78452; 93017; A9502; J0280; J2785

== ENCOUNTER 2021-04-16 09:00 | Outpatient (RCR) | payer MEDICARE, SELFPAY ==
--- NOTE | 2021-03-28 10:09 | HMH.PTOPEV ---
PT Outpatient Evaluation Rehab PT Outpatient Evaluation Start: 03/28/21 09:22 Freq: Status: Active Protocol: Document 03/28/21 09:22 SADAF (Rec: 03/28/21 10:09 GINAYANIQUEDARLENE [id number]) Electronically Signed By Jim Zuniga, PT 03/28/21 09:22 Outpatient Therapy Subjective History Subjective History Patient is a 60 year old female presenting to outpatient PT with reports of chronic LBP with RLE radicular symptoms. Patient reports that she was involved in a horse riding injury approx 40 years ago and has had pain ever since. No recent imaging to report. Comorbidities include hx of HTN and cholecystectomy. Chief Complaint Pain,Stiff,Paresthesia Symptom Type Sharp Symptoms Relieved By Rest/Positioning,Heat,OTC Meds Symptoms Aggravated By Standing,Bending/Stooping, Physical Activity,Walking, Lifting Current Functional Limitations Lifting,Housework,Recreation Activity,Walking,Bending/ Stooping Symptom Description Intermittent Level of pain today (0-10) 7 Pain scale - at its best (0-10) 0 Pain scale - at its worst (0-10) 9 Lumbopelvic Eval Posture Thoracic Spine Posture Standing Position Increased Kyphosis Lumbar Spine Posture Standing Position Increased Lordosis Assistive device Assistive Devices None / NA Palapation tenderness right lumbar spinal tenderness Yes: L4-S1 3/4 paraspinal tenderness Yes: buttock tenderness Yes: Accessory Movement L4 right L5 right S1 right Range of Motion Lumbar Spine Active Flexion Range of 80 Motion (degrees) Lumbar Spine Active Extension Range of 15 Motion (degrees) Left Lumbar Spine Lateral Flexion Active 15 Range of Motion (degrees) Right Lumbar Spine Lateral Flexion 15 Active Range of Motion (degrees) Manual Muscle Test Right Knee Extension Strength Grade 4 Good Knee Flexion Strength Grade 4 Good Hip Flexion Strength Grade 4 Good Extensor Hallucis Longus Strength Grade 4 Good Ankle Dorsiflexion Strength Grade 4 Good Gastronemius/Soleus Strength Grade 4 Good DTR Rt Patellar 1+ Lt Patellar 2+ Rt Gastroc/Soleus 1+ Lt Gastroc/Soleus 2+ Altered Sensation
== END 2021-04-16 09:05 | disposition home or self-care (01) ==
LOC: PT 09:00
PROVIDERS: PCP Nurse Practitioner Family; Visit Provider Nurse Practitioner Family
DX: M54.5 Low back pain (principal)
CPT/HCPCS: 97010; 97014; 97110; 97140; 97163; G0283

== ENCOUNTER → 2021-05-14 18:19 | Outpatient (CLI) | payer MEDICARE, SELFPAY ==
[2021-05-14 18:52] LABS: Chloride 106 mmol/L (98-107); Potassium 4.2 mmoL/L (3.5-5.1); Sodium 140 mmol/L (136-145)
[2021-05-14 18:54] LABS: Alanine Aminotransferase 17 U/L (12-78); Albumin Level 4.2 g/dl (3.5-5.0); Albumin/Globulin Ratio 1.6 (1.1-1.8); Alkaline Phosphatase 98 U/L (38-126); Anion Gap 13.2 mEq/L (5-15); Aspartate Amino Transferase 27 U/L (14-36); Bilirubin,Total 0.5 mg/dl (0.2-1.3); Blood Urea Nitrogen 17 mg/dl (7-17); Carbon Dioxide 25 mmol/L (22.0-30.0); Estimated Glomerular Filt Rate 56 ml/min (>60); GFR (African American) 68 ML/MIN (>60); Globulin 2.7 g/dL (1.3-3.2); Total Protein,Serum 6.9 g/dl (6.3-8.2)
[2021-05-14 18:55] LABS: Basophils # 0.1 K/mm3 (0-0.2); Calcium 9.4 mg/dl (8.4-10.2); Chol/HDL Ratio 2.6 (1-3.5); Cholesterol 169 mg/dl (140-200); Eosinophils # 0.1 K/mm3 (0.0-0.4); Eosinophils % 1.7 % (0.1-12.0); Glucose 107 mg/dl (74-100); HDL Cholesterol 66 mg/dl (40-60); Hematocrit 47.9 % (37.0-47.0); Hemoglobin 15.6 g/dL (12.2-16.2); Lymphocytes # 2.3 K/mm3 (0.7-4.5); Mean Corpuscular HGB Conc 32.6 g/dL (31.8-35.4); Mean Corpuscular Hemoglobin 31.2 pg (27.0-31.2); Mean Corpuscular Volume 95.8 fl (81-99); Mean Platelet Volume 9.7 fl (7.4-10.4); Monocytes # 0.4 K/mm3 (0.1-1.0); Monocytes % 6.3 % (1.7-9.3); Neutrophils # 3.1 K/mm3 (1.8-7.8); Neutrophils % 52.1 % (37.0-80.0); Platelet Count 275 K/mm3 (142-424); Red Cell Distribution Width 13.2 % (11.5-17.5); Triglycerides 113 mg/dl (30-150); VLDL Cholesterol 23 mg/dL (0-40)
[2021-05-14 19:06] LABS: Direct LDL Cholesterol 72.21 mg/dL (100-129)
[2021-05-14 19:14] LABS: T4 (Thyroxine) 12.6 ug/dl (5.53-11.0)
[2021-05-14 19:15] LABS: 25-OH Vitamin D, Total 41.1 ng/mL (30-100)
[2021-05-14 19:26] LABS: Thyroid Stimulating Hormone 0.99 uIU/mL (0.465-4.68)
== END ==
PROVIDERS: Visit Provider Nurse Practitioner Family
DX: E66.01 Morbid (severe) obesity due to excess calories (principal); G47.33 Obstructive sleep apnea (adult) (pediatric); I10 Essential (primary) hypertension; R06.02 Shortness of breath; R07.9 Chest pain, unspecified; E55.9 Vitamin D deficiency, unspecified; M54.9 Dorsalgia, unspecified; R60.0 Localized edema; Z68.41 Body mass index [BMI] 40.0-44.9, adult
CPT/HCPCS: 80053; 80061; 82306; 84436; 84443; 85025

== ENCOUNTER → 2021-06-18 12:45 | Outpatient (CLI) | payer MEDICARE, SELFPAY ==
--- NOTE | 2021-06-18 12:46 | MR_ITS ---
PROCEDURE INFORMATION: Exam: MR Lumbar Spine Without Contrast Exam date and time: 06/18/2021 12:46 PM Age: 60 years old Clinical indication: Low back pain; Additional info: Lower back pain. Lbp xyrs but is getting worse. Back pain worse on RT side. RT leg pain and tingling. No injury or trauma. No prior. TECHNIQUE: Imaging protocol: Multiplanar magnetic resonance images of the lumbar spine without intravenous contrast. COMPARISON: CT ABDOMEN PELVIS W CON 11/30/2020 8:40 PM FINDINGS: Vertebrae: There is a chronic L1 compression fracture with mild retropulsion, similar to prior CT scan dated November 30, 2020. Spinal cord: Normal signal. No cord compression. T12-L1: There is disc space narrowing and desiccation. There are moderate degenerative end plate changes at this level. There is mild disc bulging. There is facet arthropathy and ligamentum flavum hypertrophy. L1-L2: There is disc desiccation. There is a moderate disc/osteophyte complex that flattens the ventral thecal sac. There is facet arthropathy and ligamentum flavum hypertrophy. There is moderate bilateral neural foraminal narrowing. There is moderate spinal canal stenosis. L2-L3: There is disc space narrowing and desiccation. There are moderate degenerative end plate changes at this level. Disc bulging extends into both neural foramen causing moderate bilateral neural foraminal narrowing. There is facet arthropathy and ligamentum flavum hypertrophy. There is mild/moderate spinal canal stenosis. L3-L4: There is disc desiccation. There is moderate disc bulging. There is a superimposed left foraminal disc herniation. There is moderate left-sided neuroforaminal narrowing. There is facet arthropathy and ligamentum flavum hypertrophy. There is mild spinal canal stenosis. L4-L5: There is disc desiccation. There is mild disc bulging. There is a superimposed left foraminal disc herniation. There is moderate left-sided neuroforaminal narrowing. There is mild right-sided neuroforaminal narrowing. There is facet arthropathy and ligamentum flavum hypertrophy. There is mild spinal canal stenosis. L5-S1: There is disc space narrowing and desiccation. There are moderate degenerative end plate changes at this level. Disc bulging extends into both neural foramen causing moderate bilateral neural foraminal narrowing. There is a small central disc protrusion. There is facet arthropathy and ligamentum flavum hypertrophy. Soft tissues: Unremarkable. Reproductive: There is a 2 cm complex appearing left adnexal cyst. This is not fully characterized on this exam. IMPRESSION: 1. Moderate multilevel degenerative changes causing varying degrees of spinal canal and neuroforaminal narrowing. Please see details above. 2. There is a chronic L1 compression fracture with mild retropulsion, similar to prior CT scan dated November 30, 2020. 3. There is a 2 cm complex appearing left adnexal cyst. This is not fully characterized on this exam. Followup pelvic ultrasound is recommended.
== END ==
LOC: RAD 12:46
PROVIDERS: PCP Nurse Practitioner Family; Visit Provider Nurse Practitioner Family
DX: M54.50 Low back pain, unspecified (principal)
CPT/HCPCS: 72148; 76376

== ENCOUNTER → 2021-07-08 14:07 | Outpatient (CLI) | payer MEDICARE, SELFPAY ==
--- NOTE | 2021-07-08 14:07 | US_ITS ---
PROCEDURE: US TRANSVAGINAL CLINICAL INDICATION: seen on MRI l/spine COMPARISON: MR MR LUMBAR SPINE WO CON from 06/18/2021 FINDINGS: UTERUS: 4cm x 2cmx 2cm with a combined endometrial thickness of 1.6mm The ovaries are not well delineated. There is a cystic area in the left adnexal region measuring 18 by 13 mm and could be due to small ovarian cyst. A normal ovary is however not identified. IMPRESSION: Cystic 1.8 cm area in the left adnexal region which could be related to an ovarian cyst however the ovary is not demonstrated. Consider 3 month follow-up to confirm stability. Dictated by: Zac Pruitt MD 07/08/2021 15:13 Zac Pruitt MD in [place] 07/08/2021 15:13
== END ==
LOC: RAD 14:07
PROVIDERS: PCP Nurse Practitioner Family; Visit Provider Nurse Practitioner Family
DX: N94.9 Unspecified condition associated with female genital organs and menstrual cycle (principal)
CPT/HCPCS: 76830

== ENCOUNTER → 2021-08-19 10:45 | Outpatient (POV) | payer MEDICARE, SELFPAY ==
[2021-08-19 11:13] VITALS: BP 146/97; PULSE 91; RESP 18; O2SAT 96; BMI 39.6
--- NOTE | 2021-08-19 11:36 | HMH.PMCON ---
Assessment and Plan (1) Degenerative joint disease (DJD) of lumbar spine Status: Chronic Category: Medical Code(s): M47.816 - Spondylosis without myelopathy or radiculopathy, lumbar region (2) Lumbar radiculopathy Status: Chronic Category: Medical Code(s): M54.16 - Radiculopathy, lumbar region (3) Facet arthropathy Status: Chronic Category: Medical Code(s): M47.819 - Spondylosis without myelopathy or radiculopathy, site unspecified (4) Spinal stenosis Status: Chronic Category: Medical Code(s): M48.00 - Spinal stenosis, site unspecified (5) Herniated disc Status: Chronic Category: Medical - Assessment and plan all Dx Assessment and Plan for all problems:: I did review the patient's MRI with her today. She does herniated disc noted to the L4-L5 area. She and I did discuss neurosurgical evaluation, but has deferred until she undergoes injective therapy. She would prefer to proceed with injective therapy before neurosurgical evaluation. Of note, the patient does have a chronic L1 compression fracture noted to her MRI that was similar from the November 30, 2020 CT scan. As well, there is a reported 2 cm complex appearing left adnexal cyst. The patient does report that her PCP did send her for the recommended pelvic ultrasound. She is scheduled to undergo every 3-month follow-ups regarding the cyst. The patient would like to proceed with imaging of her cervical spine. She has not had an MRI of the cervical spine. She would also like to proceed with injective therapy to lumbar spine. We will schedule her for lumbar epidural steroid injection at L4-L5. This is the location of her current herniated disc. We will plan to follow-up with her after the injection for further evaluation. She does not get relief she will need a neurosurgical evaluation. Patient gabapentin milligrams 1 tab neuropathic pain. Patient is not diabetic and is not on any anticoagulation therapy. Risks and benefits of the medication have been explained in detail to the patient. If side effects do present with the medication, patient has been advised to stop the medication immediately and call the clinic. The patient has been advised to consult with his/her primary care provider and pharmacist regarding drug-drug interaction of medications currently prescribed. Possible side effects of corticosteroids have been discussed with the patient. Risks and benefits of the procedure have been explained to the patient. Patient would like to proceed with the procedure. Patient has been instructed to contact the clinic with any concerns before the next appointment. Dr. Abad has reviewed this note and agrees with this plan of care. This note was dictated using voice recognition software and make contain errors or omissions. HPI - Data of Consult Patient: new to practice Consult date: 08/19/21 Requesting Physician: Nicki Mckeon APRN - Consult Narrative Reason for consult: Low back pain and neck pain History of present illness: Ms. Man is a 60 year old female who presents today for consultation for chronic low back and neck pain. The patient was referred by her primary care provider Dr. Ronal Humphrey. Patient says that she has pain in her low back that radiates into her right buttock, right hip, right groin and right leg. She describes the pain as throbbing, burning, and sharp in sensation. She says that the pain starts in the right low back area to the lateral right thigh and wraps around into her right garcia area. She says that on occasion the pain will cause her to drop to her knees due to the excruciating type of pain. She does say leaning on a cart and leaning on the counter when doing dishes relieves the pain. Bending forward to tie her shoes, pain is severe, however. Patient does say she has tried physical therapy approximately 2 months ago for greater than 6 weeks with minimal relief. She has undergone injective therapy in [place]
== END ==
PROVIDERS: Visit Provider Clinical Nurse Specialist Family Health
DX: M47.896 Other spondylosis, lumbar region (principal); M54.16 Radiculopathy, lumbar region; M48.00 Spinal stenosis, site unspecified
CPT/HCPCS: 99202; G0463

== ENCOUNTER → 2021-09-09 13:03 | Outpatient (CLI) | payer MEDICARE, SELFPAY ==
--- NOTE | 2021-09-09 13:06 | MR_ITS ---
FINAL REPORT CLINICAL HISTORY: NECK PAIN WITH CERVICAL RADICULOPATHY. stiffness and pain in neck on rt side. rt arm pain. headache. symptoms xyrs. FINDINGS: Multiplanar MR imaging of the cervical spine was performed without contrast. On the sagittal T2-weighted images, disc degeneration is seen at multiple levels. There is straightening of the normal cervical lordosis. There is no evidence of fracture. The vertebral alignment is normal. The cervical spinal cord has an unremarkable appearance without evidence of mass, edema or syrinx. The cervicomedullary junction is normal. C2-3: There is no significant canal stenosis or neural foraminal narrowing. C3-4: There is no significant canal stenosis or neural foraminal narrowing. C4-5: Disc osteophyte complex with right foraminal disc protrusion. There is severe right neuroforaminal narrowing with right C5 nerve root impingement. There is mild left neuroforaminal narrowing. There is mild central canal stenosis with AP diameter of the thecal sac measuring 9 mm. C5-6: Disc osteophyte complex with severe right and moderate left neuroforaminal narrowing. Right paracentral disc protrusion is seen with mild central canal stenosis. AP diameter the thecal sac measures 9 mm. C6-7: Disc osteophyte complex with left foraminal disc protrusion. There is moderate right and severe left neuroforaminal narrowing. C7-T1: There is no significant canal stenosis or neural foraminal narrowing. IMPRESSION: Multilevel degenerative disc disease with mild central canal stenosis at C4-5 and C5-6. Right foraminal disc protrusion at C4-5 with right C5 nerve root impingement and severe right neuroforaminal narrowing. Reviewed, Interpreted and Dictated by Nando Dang III, MD Transcribed by Shavonne Zhao Authenticated by Nando Dang III, MD on 09/09/2021 03:21:30 PM [facility]
== END ==
PROVIDERS: PCP Nurse Practitioner Family; Visit Provider Clinical Nurse Specialist Family Health
DX: M54.2 Cervicalgia (principal); M54.12 Radiculopathy, cervical region
CPT/HCPCS: 72141; 76376

== ENCOUNTER → 2021-09-12 10:00 | Outpatient (CLI) | payer MEDICARE, SELFPAY | PROVIDERS: PCP Nurse Practitioner Family; Visit Provider Nurse Practitioner | DX: Z20.822 Contact with and (suspected) exposure to COVID-19 (principal) | CPT/HCPCS: C9803; U0003; U0005 ==

== ENCOUNTER → 2021-09-23 11:01 | Outpatient (POV) | payer MEDICARE, SELFPAY ==
[2021-09-23 11:22] VITALS: BP 145/82; PULSE 110; RESP 18; O2SAT 98; BMI 38.9
--- NOTE | 2021-09-23 12:21 | P.CONS_ITS ---
[facility] Pain Management SOAP Note Subjective:: Patient is a 61 year old female scheduled for lumbar edpidural steroid injection. She is also having pain in her neck and upper extremities with numbness and tingling. At last visit, we ordered MRI cervical spine. She is here today to discuss results. She does rate her pain a 6/10. She has tried and failed conservative therapies. General: No recent weight changes, no fever, no sleep disturbances Respiratory: No cough, no shortness of air, no recurring pulmonary infections Cardiovascular/peripheral vascular: No chest pain, no palpitations, no edema, no shortness of breath Gastrointestinal: No new onset incontinence, normal bowel movements reported Genitourinary: No new onset incontinence Musculoskeletal: neck pain with radiation into upper extremities with numbness and tingling, low back pain with radiation into bilateral lower extremities Psychiatric: [Normal mood/affect] Neurological: [Denies weakness in extremities], [denies balance issues] Objective:: Physical exam General: Alert and oriented x3, no acute distress, pleasant and cooperative Lungs: Respirations even and unlabored, symmetrical chest expansion Eyes: PERRL Musculoskeletal: Flexion and extension of cervical and lumbar [spine] somewhat guarded secondary to pain, [antalgic gait noted] Neurological: Speech clear, no gross sensory deficit Assessment:: Degenerative Disc disease cervical and lumbar spine with cervical and lumbar radiculopathy Plan:: We reviewed the patients MrI Cervical spine today. She does have DDD cervcial spine with cervical nerve root impingement. We will schedule her for a JOSE at C5-6. She is not on anticoagulation therapy and is not diabetic. We will see her back after LESI and JOSE to reevaluate symptoms. Possible side effects of corticosteroids have been discussed with the patient. Risks and benefits of the procedure have been explained to the patient. Patient would like to proceed with the procedure. Patient has been instructed to contact the clinic with any concerns before the next appointment. Dr. Abad has reviewed this note and agrees with this plan of care. This note was dictated using voice recognition software and make contain errors or omissions. [facility] History I have reviewed the patient's past medical history: Yes Medical History: Reports:: Gastroesophageal Reflux Disease(GERD), Hypertension Denies:: Cancer, Diabetes Mellitus Type 1, Diabetes Mellitus Type 2, Internal Pacemaker, MRSA, Seizures *Have you ever received a pneumonia vaccine?: No *Have you received a flu vaccine this season?: Yes Other Medical History: Reports: Arthritis. Denies: Blood Transfusion Reaction Other Surgeries: Yes: No Previous Surgery, Cholecystectomy, Colonoscopy, Diagnostic Lap, Tubal Ligation. No: Pacemaker Amputation: No - *Social History Smoking Status: Never smoker Alcohol Intake: never Substance Use Type: former substance user, opiates *Occupational Status:: unemployed Housing: house Household Members: spouse *Travel in the last 8 weeks: None Family Hx:: Cancer, Coronary Artery Disease, Heart Attack
== END ==
PROVIDERS: Visit Provider Clinical Nurse Specialist Family Health
DX: M50.10 Cervical disc disorder with radiculopathy, unspecified cervical region (principal)
CPT/HCPCS: 99212; G0463

== ENCOUNTER 2021-09-27 13:43 | Day surgery (SDC) | payer MEDICARE, SELFPAY ==
[2021-09-27 14:00] VITALS: BP 143/82; PULSE 95; RESP 20; TEMP 36.6; O2SAT 98; BMI 38.7
[2021-09-27 14:32] VITALS: BP 145/86; PULSE 90; RESP 18; O2SAT 97
[2021-09-27 14:33] VITALS: PULSE 89; RESP 18; O2SAT 97
--- NOTE | 2021-09-27 14:35 | HMH.PMPROC ---
- Procedure Date: 09/27/21 Time: 14:35 Anesthesiologist:: Juan Abad MD Complications:: None Pre-procedure Diagnosis:: Degenerative disc disease of lumbar spine with lumbar radiculopathy symptoms Post-procedure Diagnosis:: Same Indications for Procedure:: This patient is a pleasant 61-year-old white female who we are treating for low back pain with lumbar radiculopathy symptoms. She has increasing pain in her back radiating down her right leg. We will do a lumbar epidural steroid injection under fluoroscopy today to help with her pain symptoms. Procedure Details:: Informed consent was obtained and the risk and benefits of the procedure was explained to the patient. The patient was taken to the procedure room. The patient was placed prone on the procedure table. The patient was prepped and draped in sterile fashion. C-arm fluoroscopy was used to view the lumbar spine. Skin and subcutaneous tissues were anesthetized using lidocaine. I placed an 18-gauge epidural needle and advanced into the L4-L5 interspace using fluoroscopic guidance and [id number] to air. After confirmation of needle placement in the epidural space with dye I injected 2 mL of lidocaine 1.5% with Depo-Medrol 80 mg. Patient tolerated the procedure well with no complications. Plan and Disposition:: We will follow-up with her in 2 weeks. Will reevaluate symptoms at that time.
[2021-09-27 14:49] VITALS: BP 125/73; PULSE 83; RESP 20; O2SAT 96
== END 2021-09-27 14:51 | disposition home or self-care (01) ==
LOC: SC.PAINP 13:43
PROVIDERS: PCP Nurse Practitioner Family; Visit Provider Anesthesiology
DX: M51.16 Intervertebral disc disorders with radiculopathy, lumbar region (principal)
CPT/HCPCS: 62323; J1040; Q9966

== ENCOUNTER 2021-10-25 09:04 | Day surgery (SDC) | payer MEDICARE, SELFPAY ==
[2021-10-25 09:13] VITALS: BP 130/78; BP 131/83; PULSE 70; PULSE 89; RESP 18; RESP 20; TEMP 36.5; O2SAT 98; O2SAT 99; BMI 38.0
[2021-10-25 09:54] VITALS: BP 128/79; PULSE 88; RESP 18; O2SAT 98
--- NOTE | 2021-10-25 10:08 | HMH.PMPROC ---
- Procedure Date: 10/25/21 Time: 10:08 Anesthesiologist:: Amy Dunham MD Complications:: None Pre-procedure Diagnosis:: Degenerative disease of the cervical spine with cervical radiculopathy Post-procedure Diagnosis:: Same Indications for Procedure:: This patient is a very pleasant 61-year-old white female who presents today with chronic neck pain rating into her arms related to the above diagnosis. She has tried and failed conservative treatment including oral pain medications and home stretching program for greater than 6 weeks. She has previously undergone a lumbar epidural steroid injection on September 27, 2021 for her chronic low back and leg pain and notes 70 to 80% pain relief that is ongoing. The plan for today is for the patient to undergo cervical epidural steroid injection under fluoroscopy at C7-T1 #1. Procedure Details:: Cervical epidural steroid injection under fluoroscopy Informed consent was obtained and the risks and benefits of the procedure was explained to the patient. The patient was taken to the procedure room placed prone on the procedure table. The neck was prepped using ChloraPrep. The skin and subcutaneous tissues were anesthetized using lidocaine. I placed a 18-gauge epidural needle into the C7-T1 interspace and advanced using [id number] to air and fluoroscopic guidance. After confirmation of needle placement in the epidural space with dye, I injected 3 mL's lidocaine 1.0% and Depo-Medrol 80 mg. The patient tolerated the procedure well with no complications. Plan and Disposition:: We will follow-up with this patient in 2 weeks. Will reevaluate pain symptoms at the time.
[2021-10-25 10:11] VITALS: BP 127/81; PULSE 89; RESP 20; O2SAT 98
== END 2021-10-25 10:11 | disposition home or self-care (01) ==
LOC: SC.PAINP 09:05
PROVIDERS: PCP Nurse Practitioner Family; Visit Provider Anesthesiology Pain Medicine
DX: M50.10 Cervical disc disorder with radiculopathy, unspecified cervical region (principal)
CPT/HCPCS: 62321; J1040; Q9966

== ENCOUNTER → 2021-11-14 09:28 | Outpatient (POV) | payer MEDICARE, SELFPAY ==
[2021-11-14 09:58] VITALS: BP 149/86; PULSE 80; RESP 20; TEMP 36.4; O2SAT 96; BMI 49.1
--- NOTE | 2021-11-14 10:51 | HMH.PAINSOAP ---
[facility] Pain Management SOAP Note Subjective:: Patient is a pleasant 61-year-old female who is here for a follow up after a cervical epidural steroid injection on October 25, 2021. Patient is currently being treated for generative disc disease of the cervical spine with cervical radiculopathy symptoms. After the procedure, patients reports significant relief of about 100% relief and rates pain today at 0 out of 10. Patient denies any issues after the procedure. Juan Luis number [phone] with an active morphine equivalent 0. Drug screens have been reviewed and appropriate. General: No recent weight changes, no fever, no sleep disturbances Respiratory: No cough, no shortness of air, no recurring pulmonary infections Cardiovascular/peripheral vascular: No chest pain, no palpitations, no edema, no shortness of breath Gastrointestinal: No new onset incontinence, normal bowel movements reported Genitourinary: No new onset incontinence Musculoskeletal: Neck pain Psychiatric: [Normal mood/affect] Neurological: [Denies weakness in extremities], [denies balance issues] Objective:: General: Alert and oriented x3, no acute distress, pleasant and cooperative, [on room air] Lungs: Respirations even and unlabored, symmetrical chest expansion Eyes: PERRL Musculoskeletal: Flexion and extension of cervical [spine] somewhat guarded secondary to pain, [antalgic gait noted] Neurological: Speech clear, no gross sensory deficit Assessment:: Degenerative disc disease of the cervical spine with cervical radiculopathy symptoms Plan:: Patient had a significant relief of about 100% after a cervical epidural steroid injection #1. She has also had a lumbar epidural steroid injection on September 27, 2021 that provided 70 to 80% of relief. Since patient is still getting a lot of relief from the injection, we will follow up with her in 3 months. Patient has been instructed to contact the clinic with any concerns before the next appointment. Dr. Abad has reviewed this note and agrees with this plan of care. This note was dictated using voice recognition software and make contain errors or omissions. [facility] History Medical History: Reports:: Gastroesophageal Reflux Disease(GERD), Hypertension Denies:: Cancer, Diabetes Mellitus Type 1, Diabetes Mellitus Type 2, Internal Pacemaker, MRSA, Seizures *Have you ever received a pneumonia vaccine?: No *Have you received a flu vaccine this season?: Yes Other Medical History: Reports: Arthritis. Denies: Blood Transfusion Reaction Other Surgeries: Yes: No Previous Surgery, Cholecystectomy, Colonoscopy, Diagnostic Lap, Tubal Ligation. No: Pacemaker Amputation: No Fractures: No - *Social History Smoking Status: Never smoker Alcohol Intake: never Substance Use Type: former substance user, opiates *Occupational Status:: retired Housing: house Household Members: spouse *Travel in the last 8 weeks: None Family Hx:: No significant family history
== END ==
PROVIDERS: Visit Provider Student in an Organized Health Care Education/Training Program
DX: M50.10 Cervical disc disorder with radiculopathy, unspecified cervical region (principal)
CPT/HCPCS: 99212; G0463

== ENCOUNTER → 2021-12-26 10:48 | Outpatient (POV) | payer MEDICARE, SELFPAY ==
[2021-12-26 11:09] VITALS: BP 127/95; PULSE 88; RESP 19; TEMP 36.2; O2SAT 95; BMI 36.2
--- NOTE | 2021-12-26 12:58 | HMH.PAINSOAP ---
[facility] Pain Management SOAP Note Subjective:: Patient is a pleasant 61-year-old female who presents today for follow-up and medication refill. Patient is currently being treated for degenerative disc disease of the cervical and lumbar spine with cervical and lumbar radiculopathy symptoms. Patient is currently being managed with gabapentin 100 mg 3 times a day and naproxen 500 mg twice a day. Denies any side effects from these medications. Patient is needing refills on his medication. We have also been managing this patient with injective therapy. Her last lumbar epidural steroid injection was in August 2021 that provided the patient 80 to 90% relief. She had her cervical epidural steroid injection in October 2021 that also provided 100% relief. Patient feels like she has been having worsening low back pain that radiates to bilateral lower extremities. She is wanting a repeat lumbar epidural steroid injection today. Rates pain as 4 out of 10. [facility] #[id number] with an active morphine equivalent of 0. Review of Systems: General: No recent weight changes, no fever, no sleep disturbances Respiratory: No cough, no shortness of air, no recurring pulmonary infections Cardiovascular/peripheral vascular: No chest pain, no palpitations, no edema, no shortness of breath Gastrointestinal: No new onset incontinence, normal bowel movements reported Genitourinary: No new onset incontinence Musculoskeletal: Neck pain, low back pain Psychiatric: [Normal mood/affect] Neurological: [Denies weakness in extremities], [denies balance issues] Objective:: Physical Exam: General: Alert and oriented x3, no acute distress, pleasant and cooperative, [on room air] Lungs: Respirations even and unlabored, symmetrical chest expansion Eyes: PERRL Musculoskeletal: Flexion and extension of cervical and lumbar [spine] somewhat guarded secondary to pain, [antalgic gait noted] Neurological: Speech clear, no gross sensory deficit Assessment:: Degenerative disc disease of the cervical and lumbar spine with cervical and lumbar radiculopathy symptoms Plan:: We have been managing this patient with oral medication injective therapy. Patient has been having worsening low back pain that radiates to bilateral lower extremities. We will schedule the patient for a lumbar epidural steroid injection at L4-L5. Risk and benefits of this procedure has been discussed with the patient. Patient would like to proceed with this procedure. Patient is not on any blood thinners. We will continue the patient's gabapentin 100 mg 3 times a day and naproxen 500 mg twice a day. We will provide the patient 3 months worth of refill on her gabapentin and 2 months worth of refill on her naproxen. I discussed with the patient to take her naproxen with food every time. Patient has been instructed to contact the clinic with any concerns before the next appointment. Dr. Abad has reviewed this note and agrees with this plan of care. This note was dictated using voice recognition software and make contain errors or omissions. [facility] History Medical History: Reports:: Gastroesophageal Reflux Disease(GERD), Hypertension Denies:: Cancer, Diabetes Mellitus Type 1, Diabetes Mellitus Type 2, Internal Pacemaker, MRSA, Seizures *Have you ever received a pneumonia vaccine?: No *Have you received a flu vaccine this season?: Yes Other Medical History: Reports: Arthritis. Denies: Blood Transfusion Reaction Other Surgeries: Yes: No Previous Surgery, Cholecystectomy, Colonoscopy, Diagnostic Lap, Tubal Ligation. No: Pacemaker Amputation: No Fractures: No - *Social History Smoking Status: Never smoker Alcohol Intake: never Substance Use Type: former substance user, opiates *Occupational Status:: unemployed Housing: house Household Members: spouse *Travel in the last 8 weeks: None Family Hx:: No significant family history
== END ==
PROVIDERS: Visit Provider Student in an Organized Health Care Education/Training Program
DX: M50.10 Cervical disc disorder with radiculopathy, unspecified cervical region (principal); M51.16 Intervertebral disc disorders with radiculopathy, lumbar region
CPT/HCPCS: 99212; G0463

== ENCOUNTER 2022-01-10 10:26 | Day surgery (SDC) | payer MEDICARE, SELFPAY ==
[2022-01-10 10:31] VITALS: BP 148/84; PULSE 77; RESP 20; TEMP 36.6; O2SAT 98; BMI 36.1
--- NOTE | 2022-01-10 10:56 | HMH.PMPROC ---
- Procedure Date: 01/10/22 Time: 10:56 Anesthesiologist:: Erasmo Barth CRNA Complications:: None Pre-procedure Diagnosis:: . Degenerative disc disease lumbar spine. Lumbar radiculopathy symptoms. Post-procedure Diagnosis:: Same Indications for Procedure:: This patient is a pleasant 61-year-old female that presents today for lumbar epidural steroid injection in our injection clinic. Patient complains of low back pain as well as bilateral hip and leg radicular symptoms at times. Patient has had lumbar epidural steroid injections in the past with significant improvement in her low back pains with bowel hip and leg pain. Procedure Details:: Procedure: Lumbar epidural steroid injection under fluoroscopy Informed consent was obtained and the risks and benefits of the procedure were explained to the patient. The patient was taken to the procedure room and noninvasive monitors placed, including noninvasive blood pressure cuff and pulse oximeter. The back was viewed using C-arm Fluoroscopy and prepped using Betadine as a cleansing solution and the L4-L5 interspace was palpated. Skin and subcutaneous tissues were anesthetized using lidocaine 1.5% and a 25-gauge needle. After this, an 18-gauge Touhy epidural needle was placed into the L4-L5 interspace and advanced using fluoroscopic guidance and loss of resistance to air until the epidural space was encountered. After confirmation of needle placement in the epidural space, with dye, a solution containing lidocaine 1.5%, 4 mL and Depo-Medrol 80 mg were incrementally injected into the lumbar epidural space. The patient tolerated the procedure well with no complications. The patient was observed in the Pain Clinic and then discharged home neurologically intact. Plan and Disposition:: Patient was discharged without incident.
[2022-01-10 10:59] VITALS: BP 143/78; PULSE 69; RESP 18; O2SAT 100
[2022-01-10 11:01] VITALS: BP 142/83; PULSE 70; RESP 18
[2022-01-10 11:17] VITALS: BP 126/79; PULSE 75; RESP 18; O2SAT 99
== END 2022-01-10 11:17 | disposition home or self-care (01) ==
LOC: SC.PAINP 10:27
PROVIDERS: PCP Nurse Practitioner Family; Visit Provider Nurse Anesthetist, Certified Registered
DX: M51.16 Intervertebral disc disorders with radiculopathy, lumbar region (principal); K21.9 Gastro-esophageal reflux disease without esophagitis; I10 Essential (primary) hypertension; M19.90 Unspecified osteoarthritis, unspecified site; R00.2 Palpitations; I51.89 Other ill-defined heart diseases
CPT/HCPCS: 62323; J1040

== ENCOUNTER → 2022-02-04 10:08 | Outpatient (CLI) | payer MEDICARE, SELFPAY ==
--- NOTE | 2022-02-04 10:08 | MM_ITS ---
PROCEDURE INFORMATION: Exam: MG Bilateral Screening 3D Mammography Exam date and time: 02/04/2022 10:04 AM Age: 61 years old Clinical indication: Screening. No family history of breast cancer. TECHNIQUE: Imaging protocol: Bilateral Screening tomosynthesis and 2D mammography including computer-aided detection (CAD) when performed. COMPARISON: No relevant prior studies available.If prior mammograms are provided, I am happy to add an addendum. FINDINGS: MAMMOGRAPHY: Breast composition: The breasts are almost entirely fatty. Mass: None. Architectural distortion: None. Calcifications: No suspicious calcifications. Asymmetric density: None. Skin thickening: None. Axillary adenopathy: None. IMPRESSION: No mammographic evidence of malignancy. Annual screening is recommended unless otherwise clinically indicated. ASSESSMENT: BI-RADS Category 1: Negative
== END ==
PROVIDERS: PCP Nurse Practitioner Family; Visit Provider Nurse Practitioner Family
DX: Z12.31 Encounter for screening mammogram for malignant neoplasm of breast (principal)
CPT/HCPCS: 77063; 77067

== ENCOUNTER → 2022-02-04 14:14 | Outpatient (POV) | payer MEDICARE, SELFPAY ==
[2022-02-04 14:21] VITALS: BP 138/72; PULSE 86; RESP 18; TEMP 36.7; O2SAT 98; BMI 35.6
--- NOTE | 2022-02-04 14:53 | HMH.PAINSOAP ---
[facility] Pain Management SOAP Note Subjective:: Patient is a pleasant 62-year-old female who presents today for follow-up after a lumbar epidural steroid injection at L4-L5 on January 10, 2022. Patient is currently being treated for degenerative disc disease of the cervical and lumbar spine with cervical and lumbar radiculopathy symptoms, knee pain. After the injection, patient had significant relief of 90 to 100% and rates her pain as 0 out of 10. We have been managing this patient with injective therapy. Injective hx is listed below. She has had good success with injective therapy. She still doing okay with her neck pain. Today, patient is complaining more of pain around her right knee. She states that she was getting intra-articular knee injections in the past. Denies any recent falls or traumas. She says that each injection typically last for 1 to 2 years. She has not had any updated imaging of her right knee. For pain, we have been managing her with gabapentin 100 mg 3 times a day and naproxen 500 mg twice a day. She is stable with these medications. Juan Luis [phone] with an active morphine equivalent of 0. Drug screens appropriate. Injective Hx: 08/2021 - LESI L4-L5, 80-90% relief 10/2021 - JOSE, 100% relief 01/10/22- LESI L4-L5, 90-100% relief Review of Systems: General: No recent weight changes, no fever, no sleep disturbances Respiratory: No cough, no shortness of air, no recurring pulmonary infections Cardiovascular/peripheral vascular: No chest pain, no palpitations, no edema, no shortness of breath Gastrointestinal: No new onset incontinence, normal bowel movements reported Genitourinary: No new onset incontinence Musculoskeletal: Neck pain, low back pain, right knee pain Psychiatric: [Normal mood/affect] Neurological: [Denies weakness in extremities], [denies balance issues] Objective:: Physical Exam: General: Alert and oriented x3, no acute distress, pleasant and cooperative Lungs: Respirations even and unlabored, symmetrical chest expansion Eyes: PERRL Musculoskeletal: Flexion and extension of cervical and lumbar [spine] somewhat guarded secondary to pain, [antalgic gait noted]; limited range of motion of the right knee secondary to pain Neurological: Speech clear, no gross sensory deficit Assessment:: Degenerative disc disease of the cervical and lumbar spine with cervical and lumbar radiculopathy symptoms Right knee pain Plan:: We will schedule the patient for a right knee intra-articular injection. We will also order a bilateral weighted x-ray of her knees. Patient is still getting significant relief with the cervical epidural steroid injection and the lumbar epidural steroid injection. We will not schedule her for any repeat injections for these areas at the moment. Patient still has refills on her naproxen and gabapentin. Patient has been instructed to contact the clinic with any concerns before the next appointment. Dr. Abad has reviewed this note and agrees with this plan of care. This note was dictated using voice recognition software and make contain errors or omissions. [facility] History Medical History: Reports:: Gastroesophageal Reflux Disease(GERD), Hypertension Denies:: Cancer, Diabetes Mellitus Type 1, Diabetes Mellitus Type 2, Internal Pacemaker, MRSA, Seizures *Have you ever received a pneumonia vaccine?: No *Have you received a flu vaccine this season?: Yes Other Medical History: Reports: Arthritis. Denies: Blood Transfusion Reaction Other Surgeries: Yes: No Previous Surgery, Cholecystectomy, Colonoscopy, Diagnostic Lap, Tubal Ligation. No: Pacemaker Amputation: No Fractures: No - *Social History Smoking Status: Never smoker Alcohol Intake: never Substance Use Type: former substance user, opiates *Occupational Status:: unemployed Housing: house Household Members: spouse *Travel in the last 8 weeks: None Family Hx:: No significant family history
== END ==
PROVIDERS: Visit Provider Student in an Organized Health Care Education/Training Program
DX: M51.16 Intervertebral disc disorders with radiculopathy, lumbar region (principal); M50.10 Cervical disc disorder with radiculopathy, unspecified cervical region; M25.561 Pain in right knee
CPT/HCPCS: 77063; 77067; 99212; G0463

== ENCOUNTER → 2022-02-11 10:30 | Outpatient (CLI) | payer MEDICARE, SELFPAY ==
--- NOTE | 2022-02-11 10:35 | XR_ITS ---
FINAL REPORT CLINICAL HISTORY: ESTEFANI KNEE PAIN FINDINGS: LEFT KNEE Three views were obtained. There is no acute fracture or dislocation. There are mild degenerative changes of the medial and patellofemoral compartments. No joint effusion is identified. No soft tissue abnormality is identified. IMPRESSION: Mild degenerative changes. Reviewed, Interpreted and Dictated by Nando Dang III, MD Transcribed by Lela Dunne Authenticated and [facility]
--- NOTE | 2022-02-11 10:35 | XR_ITS ---
FINAL REPORT CLINICAL HISTORY: bilateral knee pain FINDINGS: RIGHT KNEE Three views were obtained. There is no acute fracture or dislocation. There are mild degenerative changes of the medial and patellofemoral compartments. No joint effusion is identified. No soft tissue abnormality is identified. IMPRESSION: Mild degenerative changes. Reviewed, Interpreted and Dictated by Nando Dang III, MD Transcribed by Lela Dunne Authenticated and [facility]
== END ==
PROVIDERS: PCP Nurse Practitioner Family; Visit Provider Student in an Organized Health Care Education/Training Program
DX: M25.562 Pain in left knee (principal); M25.561 Pain in right knee
CPT/HCPCS: 73564

== ENCOUNTER → 2022-02-20 10:26 | Outpatient (POV) | payer MEDICARE, SELFPAY ==
[2022-02-20 10:56] VITALS: BP 116/75; PULSE 96; RESP 20; O2SAT 100; BMI 35.5
--- NOTE | 2022-02-20 10:56 | HMH.PAINSOAP ---
[facility] Pain Management SOAP Note Subjective:: Patient is a pleasant 61-year-old white female who presents today for follow-up after a lumbar epidural steroid injection at L4-L5 on January 10, 2022. She is currently being treated for degenerative disc disease of the cervical and lumbar spine with cervical and lumbar radiculopathy symptoms, and knee pain. Patient has continued to have significant relief of 90 to 100%. Patient states her pain today is a 0 out of 10. Patient states she performs her activities of daily living with no difficulty. She continues to do well with injective therapy. She states her cervical pain is doing well. Occasionally when she does experience neck pain she can relieve it by popping her neck. Patient is scheduled for a right knee injection on March 07, 2022. She states that she has gotten intra-articular knee injections in previous from a different provider and that these injections gave significant improvement for her knee pain. We have been managing her pain with gabapentin 100 mg 3 times a day, and naproxen 500 mg twice a day. At this time the patient does not need any refills. Her Juan Luis is [phone]. It has been reviewed and is appropriate. Injective history: 08/2021 -LESI L4-L5, 80 to 90% relief 10/2021?JOSE, 100% relief 01/10/2022?LESI L4-L5, 90 to 100% relief Review of Systems: General: No recent weight changes, no fever, no sleep disturbances Respiratory: No cough, no shortness of air, no recurring pulmonary infections Cardiovascular/peripheral vascular: No chest pain, no palpitations, no edema, no shortness of breath Gastrointestinal: No new onset incontinence, normal bowel movements reported Genitourinary: No new onset incontinence Musculoskeletal: Neck pain, low back pain, right knee pain Psychiatric: [Normal mood/affect] Neurological: [Denies weakness in extremities], [denies balance issues] Objective:: Physical Exam: General: Alert and oriented x3, no acute distress, pleasant and cooperative Lungs: Respirations even and unlabored, symmetrical chest expansion Eyes: PERRL Musculoskeletal: Flexion and extension of lumbar and cervical [spine] somewhat guarded secondary to pain, [antalgic gait noted] Neurological: Speech clear, no gross sensory deficit Assessment:: degenerative disc disease of cervical and lumbar spine with cervical and lumbar radiculopathy symptoms, and knee pain Plan:: Patient continues to have significant relief with 90 to 100% from the lumbar epidural steroid injection L4-L5. She reports no issues with this injection. She is scheduled for right knee injection March 07. At that time we will schedule a 2-week follow-up and medication refill. Patient has been instructed to contact the clinic with any concerns before the next appointment. Dr. Abad has reviewed this note and agrees with this plan of care. This note was dictated using voice recognition software and make contain errors or omissions. [facility] History I have reviewed the patient's past medical history: Yes Medical History: Reports:: Gastroesophageal Reflux Disease(GERD), Hypertension Denies:: Cancer, Diabetes Mellitus Type 1, Diabetes Mellitus Type 2, Internal Pacemaker, MRSA, Seizures *Have you ever received a pneumonia vaccine?: No *Have you received a flu vaccine this season?: Yes Other Medical History: Reports: Arthritis. Denies: Blood Transfusion Reaction Other Surgeries: Yes: No Previous Surgery, Cholecystectomy, Colonoscopy, Diagnostic Lap, Tubal Ligation. No: Pacemaker Amputation: No Fractures: No - *Social History Smoking Status: Never smoker Alcohol Intake: never Substance Use Type: former substance user, opiates *Occupational Status:: unemployed Housing: house Household Members: spouse *Travel in the last 8 weeks: Inside the [place] Family Hx:: No significant family history
== END ==
PROVIDERS: Visit Provider Student in an Organized Health Care Education/Training Program
DX: M51.16 Intervertebral disc disorders with radiculopathy, lumbar region (principal); M50.10 Cervical disc disorder with radiculopathy, unspecified cervical region; M25.569 Pain in unspecified knee
CPT/HCPCS: 99212; G0463

== ENCOUNTER 2022-03-21 07:13 | Day surgery (SDC) | payer MEDICARE, SELFPAY ==
[2022-03-21 08:02] VITALS: BP 139/76; PULSE 64; RESP 18; TEMP 36.4; O2SAT 99; BMI 35.6
[2022-03-21 08:31] VITALS: BP 161/85; PULSE 71; RESP 20; TEMP 36.6; O2SAT 97
--- NOTE | 2022-03-21 08:33 | HMH.PMPROC ---
- Procedure Date: 03/21/22 Time: 08:34 Anesthesiologist:: Erasmo Barth CRNA Complications:: None Pre-procedure Diagnosis:: Degenerative disc disease lumbar spine multilevels. Lumbar radiculopathy symptoms. Post-procedure Diagnosis:: Same Indications for Procedure:: Very pleasant 61-year-old female that reports to our clinic today for right intra-articular knee injection. She has had this procedure in the past with significant improvement. She wished to repeat the injection today. Procedure Details:: Details of the procedure were explained to the patient. The patient was taken the procedure room placed in the sitting position. The area over the knee was cleansed using chlorhexidine as a cleansing solution. Using a 25-gauge inch and half needle the knee joint was accessed using the right anterior approach. Needle was inserted with ease. No obstruction. The knee was then injected after negative aspiration with 4 cc of 0.25% Marcaine +1 cc of 40 mg Depo-Medrol and 4 cc of 1% lidocaine. Patient tolerated procedure without difficulty. No complications. Plan and Disposition:: Patient will return to clinic for follow-up.
[2022-03-21 08:36] VITALS: BP 145/82; PULSE 86; RESP 20; O2SAT 96
== END 2022-03-21 08:32 | disposition home or self-care (01) ==
LOC: SC.PAINP 07:14
PROVIDERS: PCP Nurse Practitioner Family; Visit Provider Nurse Anesthetist, Certified Registered
DX: M51.16 Intervertebral disc disorders with radiculopathy, lumbar region (principal); M17.11 Unilateral primary osteoarthritis, right knee
CPT/HCPCS: 20610; J1040

== ENCOUNTER → 2022-05-06 09:12 | Outpatient (POV) | payer MEDICARE, SELFPAY ==
[2022-05-06 09:23] VITALS: BP 147/93; PULSE 59; RESP 19; TEMP 36.5; O2SAT 97; BMI 36.1
--- NOTE | 2022-05-06 09:24 | A.OFFVIS_ITS ---
[facility] Pain Management SOAP Note Subjective:: Patient is a pleasant 61-year-old female who presents today for follow-up of right intra-articular knee injections on 03/21/2022. We are currently treating the patient for degenerative disc disease of lumbar spine multilevels with lumbar radiculopathy symptoms, osteoarthritis right knee. Patient states she has had at least 90% improvement of her pain symptoms in her right knee following this injection. She states it is continuing to help her symptoms. Today the patient rates her pain a 0 out of 10. Patient is currently managed with gabapentin 100 mg 3 times a day. She denies any side effects from this medication. She states this medication is adequately helping her pain. She is requesting a refill at today's visit. Her Juan Luis is [phone]. Its been reviewed and appropriate. Review of Systems: General: No recent weight changes, no fever, no sleep disturbances Respiratory: No cough, no shortness of air, no recurring pulmonary infections Cardiovascular/peripheral vascular: No chest pain, no palpitations, no edema, no shortness of breath Gastrointestinal: No new onset incontinence, normal bowel movements reported Genitourinary: No new onset incontinence Musculoskeletal: Right knee pain, low back pain Psychiatric: [Normal mood/affect] Neurological: [Denies weakness in extremities], [denies balance issues] Objective:: Physical Exam: General: Alert and oriented x3, no acute distress, pleasant and cooperative Lungs: Respirations even and unlabored, symmetrical chest expansion Eyes: PERRL Musculoskeletal: Flexion and extension of lumbar [spine] somewhat guarded secondary to pain, [antalgic gait noted] Neurological: Speech clear, no gross sensory deficit Assessment:: Degenerative disc disease of lumbar spine multilevels with lumbar radiculopathy symptoms, osteoarthritis right knee Plan:: Patient has had significant improvement of her right knee pain symptoms following her intra-articular injection. At this time she is not needing any additional injective therapy. I will refill the patient's gabapentin 100 mg 3 times a day and provide a 3-month supply of this medication. Patient will return to clinic in 3 months for follow-up and reevaluation of symptoms, as well as medication refill. Patient has been instructed to contact the clinic with any concerns before the next appointment. Dr. Abad has reviewed this note and agrees with this plan of care. This note was dictated using voice recognition software and make contain errors or omissions. [facility] Medical History (Updated 08/19/21 @ 11:43 by Nicki Mckeon APRN) Chest pain Social History Smoking Status: Never smoker alcohol intake: never substance use type: former substance user and opiates current occupational status: unemployed Travel in the last 8 weeks: None household members: spouse housing: house current occupational exposures/hazards: No caffeine: Yes
== END | disposition home or self-care (01) ==
PROVIDERS: PCP Nurse Practitioner Family; Visit Provider Nurse Practitioner Family
DX: M51.16 Intervertebral disc disorders with radiculopathy, lumbar region (principal); M17.11 Unilateral primary osteoarthritis, right knee
CPT/HCPCS: 99212; G0463

== ENCOUNTER → 2022-06-12 09:20 | Outpatient (POV) | payer MEDICARE, SELFPAY ==
[2022-06-12 09:33] VITALS: BP 116/74; PULSE 65; RESP 18; TEMP 37.1; O2SAT 97; BMI 36.2
--- NOTE | 2022-06-12 11:22 | A.OFFVIS_ITS ---
[facility] Pain Management SOAP Note Subjective:: Patient is a pleasant 62-year-old female who presents today for follow-up. Patient is currently being treated for degenerative disc disease of lumbar spine with lumbar radiculopathy symptoms, osteoarthritis of the right knee. We have been managing this patient with injective therapy. We did a lumbar epidural steroid injection in December 2021 that provided 90 to 100% of relief for more than 3 months. She states that she has been having increasing low back pain this past couple of days. She does have some radiating pains to bilateral lower extremities. She feels like her back pain is back to baseline. Rates her pain as 8 out of 10. We also have done right intra-articular knee injection to this patient last February 2022. This has also provided 90% relief. She states that she has been having issues with prolonged walking and standing because of her knee pain. She is wanting to schedule an injection on this as well. She is prescribed gabapentin 100mg TID. Denies any side effects. Stable on this medication. She is needing refills for 3 months. [id number] [id number], MEQ 0. Review of Systems: General: No recent weight changes, no fever, no sleep disturbances Respiratory: No cough, no shortness of air, no recurring pulmonary infections Cardiovascular/peripheral vascular: No chest pain, no palpitations, no edema, no shortness of breath Gastrointestinal: No new onset incontinence, normal bowel movements reported Genitourinary: No new onset incontinence Musculoskeletal: Low back pain, right knee pain Psychiatric: [Normal mood/affect] Neurological: [Denies weakness in extremities], [denies balance issues] Objective:: Physical Exam: General: Alert and oriented x3, no acute distress, pleasant and cooperative Lungs: Respirations even and unlabored, symmetrical chest expansion Eyes: PERRL Musculoskeletal: Flexion and extension of lumbar [spine] somewhat guarded secondary to pain, [antalgic gait noted]; limited range of motion of the right knee secondary to pain Neurological: Speech clear, no gross sensory deficit Assessment:: Degenerative disc disease of lumbar spine with lumbar radiculopathy symptoms, osteoarthritis of the right knee Plan:: Patient has been having worsening low back pain. She previously had a lumbar epidural steroid injection in December 2021 that provided 90 to 100% relief. We will schedule the patient for a lumbar epidural steroid injection at L4-L5. Patient is not on any blood thinners. Patient has also been having worsening right knee pain. Denies any recent falls or traumas. We will schedule the patient for a right knee intra-articular injections 2 weeks after her epidural steroid injection. I will also start this patient on a compounding cream to help with her joint pains. Patient has been instructed to contact the clinic with any concerns before the next appointment. Dr. Abad has reviewed this note and agrees with this plan of care. This note was dictated using voice recognition software and make contain errors or omissions. [facility] Medical History (Updated 08/19/21 @ 11:43 by Nicki Mckeon APRN) Chest pain Social History Smoking Status: Never smoker alcohol intake: never substance use type: former substance user and opiates current occupational status: retired Travel in the last 8 weeks: None household members: spouse housing: house current occupational exposures/hazards: No caffeine: Yes
== END ==
PROVIDERS: Visit Provider Student in an Organized Health Care Education/Training Program
DX: M51.16 Intervertebral disc disorders with radiculopathy, lumbar region (principal); M17.11 Unilateral primary osteoarthritis, right knee; Z79.899 Other long term (current) drug therapy
CPT/HCPCS: 99212; G0463

== ENCOUNTER 2022-07-01 07:50 | Day surgery (SDC) | payer MEDICARE, SELFPAY ==
[2022-07-01 08:07] VITALS: BP 116/76; PULSE 54; RESP 18; TEMP 36.3; O2SAT 98; BMI 36.2
[2022-07-01 08:31] VITALS: BP 109/90; PULSE 57; RESP 18; O2SAT 97
[2022-07-01 08:32] VITALS: BP 109/90; PULSE 57; RESP 18; O2SAT 97
[2022-07-01 08:39] VITALS: BP 132/76; PULSE 55; RESP 18; O2SAT 98
--- NOTE | 2022-07-01 09:08 | P.PCN_ITS ---
Procedure Date: 07/01/22 Time: 09:08 Anesthesiologist:: Erasmo Barth CRNA Complications:: None Pre-procedure Diagnosis:: Degenerative disc disease lumbar spine multilevels. Lumbar radiculopathy. Post-procedure Diagnosis:: Same. Indications for Procedure:: Patient is a very pleasant 62-year-old female that comes our clinic today for lumbar epidural steroid injection at the L4-5 level. Patient has had this in the past with significant improvement terms of her low back pain as well as b ilateral hip and leg radicular symptoms. Today she rates her pain 6/10. She describes low back pain as constant, dull, aching. Also bilateral hip and leg radicular symptoms at times. Procedure Details:: Procedure: Lumbar epidural steroid injection under fluoroscopy Informed consent was obtained and the risks and benefits of the procedure were explained to the patient. The patient was taken to the procedure room and noninvasive monitors placed, including noninvasive blood pressure cuff and pulse oximeter. The back was viewed using C-arm Fluoroscopy and prepped using Chloraprep as a cleansing solution and the L4-L5 interspace was palpated. Skin and subcutaneous tissues were anesthetized using lidocaine 1.5% and a 25-gauge needle. After this, an 18-gauge Touhy epidural needle was placed into the L4-L5 interspace and advanced using fluoroscopic guidance and loss of resistance to air until the epidural space was encountered. After confirmation of needle placement in the epidural space, with dye, a solution containing normal saline, 3 mL and Depo-Medrol 80 mg were incrementally injected into the lumbar epidural space. The patient tolerated the procedure well with no complications. The patient was observed in the Pain Clinic and then discharged home neurologically intact. Plan and Disposition:: Patient was discharged without incident.
== END 2022-07-01 08:39 | disposition home or self-care (01) ==
LOC: SC.PAINP 07:52
PROVIDERS: PCP Nurse Practitioner Family; Visit Provider Nurse Anesthetist, Certified Registered
DX: M51.16 Intervertebral disc disorders with radiculopathy, lumbar region (principal)
CPT/HCPCS: 62323; J1040

== ENCOUNTER 2022-07-18 07:34 | Day surgery (SDC) | payer MEDICARE, SELFPAY ==
[2022-07-18 07:42] VITALS: BP 130/74; PULSE 80; RESP 20; TEMP 36.6; O2SAT 98; BMI 37.4
[2022-07-18 08:21] VITALS: BP 119/68; PULSE 81; RESP 18; O2SAT 97
--- NOTE | 2022-07-18 08:27 | EXP.PAIN.PRO ---
Procedure Date: 07/18/22 Time: 08:00 Anesthesiologist:: Erasmo Barth CRNA Complications:: None Pre-procedure Diagnosis:: Osteoarthritis right knee Post-procedure Diagnosis:: Same Indications for Procedure:: Patient is a pleasant 59-year-old female that comes our clinic today for right intra-articular knee injection. Patient has pain in the knee when walking. Flexion and extension increases pain. Procedure Details:: Details of the procedure were explained to the patient. The patient taken the procedure room placed in the sitting position. The area over the knee was cleaned using chlorhexidine as a cleansing solution. The knee was accessed with ease using a 25-gauge inch and a half needle. 40 mg of Depo-Medrol +3 cc of 0.25% Marcaine +3 cc of 1% lidocaine was injected with out difficulty. Needle was removed. Band-Aid applied. Patient tolerated the procedure without difficulty. There are no complications. Plan and Disposition:: Patient was discharged without incident.
== END 2022-07-18 08:21 | disposition home or self-care (01) ==
LOC: SC.PAINP 07:34
PROVIDERS: PCP Nurse Practitioner Family; Visit Provider Nurse Anesthetist, Certified Registered
DX: M17.11 Unilateral primary osteoarthritis, right knee (principal)
CPT/HCPCS: 20610; J1040

== ENCOUNTER → 2022-09-04 13:56 | Outpatient (POV) | payer MEDICARE, SELFPAY ==
[2022-09-04 14:58] VITALS: BP 110/65; PULSE 83; RESP 18; O2SAT 98; BMI 35.6
--- NOTE | 2022-09-04 15:02 | EXP.PAIN.SOA ---
[facility] Pain Management SOAP Note Subjective:: Patient is a pleasant 61-year-old female who presents today for follow-up of right knee intra-articular injection on 07/18/2022. We are currently treating the patient for degenerative disc disease of lumbar spine with lumbar radiculopathy symptoms, osteoarthritis right knee. Today the patient states this injection has continued to provide significant improvement rating it at 70% relief. Patient states her pain is 3 out of 10 and denies any new trauma or injury. Patient denies any change to location or type of pain she experiences. Patient is prescribed compounding cream that does provide additional improvement. Her Juan Luis is [phone]. Its been reviewed and appropriate. Review of Systems: General: No recent weight changes, no fever, no sleep disturbances Respiratory: No cough, no shortness of air, no recurring pulmonary infections Cardiovascular/peripheral vascular: No chest pain, no palpitations, no edema, no shortness of breath Gastrointestinal: No new onset incontinence, normal bowel movements reported Genitourinary: No new onset incontinence Musculoskeletal: Right knee pain Psychiatric: [Normal mood/affect] Neurological: [Denies weakness in extremities], [denies balance issues] Objective:: Physical Exam: General: Alert and oriented x3, no acute distress, pleasant and cooperative Lungs: Respirations even and unlabored, symmetrical chest expansion Eyes: PERRL Musculoskeletal: Flexion and extension of right knee somewhat guarded secondary to pain, [antalgic gait noted] Neurological: Speech clear, no gross sensory deficit ORT score updated with low risk of 3. Assessment:: Degenerative disc disease of lumbar spine with lumbar radiculopathy symptoms, osteoarthritis right knee Plan:: Patient continues to experience significant pain relief following her right knee intra-articular injection on 07/18/2022. Patient does not require any additional injective therapy at this time. Patient will return to clinic in 3 months for reevaluation of symptoms and follow-up. Patient has been instructed to contact the clinic with any concerns before the next appointment. Dr. Abad has reviewed this note and agrees with this plan of care. This note was dictated using voice recognition software and make contain errors or omissions. [facility] Disclaimer: The information contained in this section may have been updated after the patient was seen, as this information can be updated by other users. Medical History Chest pain Family History Other No significant family history Social History (Updated 07/18/22 @ 07:46 by Candida Marie RN) Smoking Status: Never smoker alcohol intake: never substance use type: former substance user and opiates current occupational status: retired Travel in the last 8 weeks: None household members: spouse housing: house current occupational exposures/hazards: No caffeine: Yes
== END ==
PROVIDERS: PCP Nurse Practitioner Family; Visit Provider Nurse Practitioner Family
DX: M51.16 Intervertebral disc disorders with radiculopathy, lumbar region (principal); M17.11 Unilateral primary osteoarthritis, right knee
CPT/HCPCS: 99212; G0463

== ENCOUNTER → 2022-12-04 12:49 | Outpatient (POV) | payer MEDICARE, SELFPAY ==
[2022-12-04 12:58] VITALS: BP 146/78; PULSE 67; RESP 18; O2SAT 98; BMI 35.9
--- NOTE | 2022-12-04 13:18 | EXP.PAIN.SOA ---
[facility] Pain Management SOAP Note Subjective:: This patient is a very pleasant 61-year-old female that comes our clinic today for follow-up visit. We manage the patient with gabapentin 100 mg 3 times daily. However, patient states she only takes it twice a day due to not needing the third pill each day. Her Juan Luis #[id number] has been reviewed and appropriate. She is having some increased right low lumbar pain. Right posterior hip pain. She has extreme point tenderness over the right sacroiliac joint. Patient has positive Trae's test. Positive Gaenslen's test. Positive right sacroiliac joint compression test. Patient is having difficulty with minimal task around the house due to this pain in the right posterior hip and low lumbar area on the right. She rates the pain 7/10. Patient does not have midline lumbar pain. Patient does have difficulty transitioning from sitting to standing. I suggest right sacroiliac joint injection. Objective:: Patient is awake alert Cameron x3. In no acute distress. Flexion-extension lumbar spine somewhat guarded secondary to pain. Deep tendon reflexes upper and lower extremities normal. Motor strength upper and lower extremities normal. There is no gross sensory deficit. Gait is normal. Assessment:: Lumbar back pain. Right sacroiliitis. Osteoarthritis right knee. Right hip radicular symptoms Plan:: Discussed in detail with the patient regarding right sacroiliac joint injection. Answered her questions. She wishes to proceed. [facility] Disclaimer: The information contained in this section may have been updated after the patient was seen, as this information can be updated by other users. Medical History Chest pain Family History Other No significant family history Social History (Updated 07/18/22 @ 07:46 by Candida Marie RN) Smoking Status: Never smoker alcohol intake: never substance use type: former substance user and opiates current occupational status: retired Travel in the last 8 weeks: None household members: spouse housing: house current occupational exposures/hazards: No caffeine: Yes
== END ==
PROVIDERS: PCP Nurse Practitioner Family; Visit Provider Nurse Anesthetist, Certified Registered
DX: M54.50 Low back pain, unspecified (principal); M17.11 Unilateral primary osteoarthritis, right knee; M46.1 Sacroiliitis, not elsewhere classified
CPT/HCPCS: 99212; G0463

== ENCOUNTER 2022-12-09 09:35 | Day surgery (SDC) | payer MEDICARE, SELFPAY ==
[2022-12-09 10:07] VITALS: BP 133/70; PULSE 63; RESP 18; TEMP 36.4; O2SAT 98; BMI 35.9
[2022-12-09 10:18] VITALS: BP 140/79; PULSE 64; RESP 18; O2SAT 97
[2022-12-09 10:21] VITALS: BP 137/61; PULSE 56; RESP 18; O2SAT 98
--- NOTE | 2022-12-09 10:21 | EXP.PAIN.PRO ---
Procedure Date: 12/09/22 Time: 10:20 Anesthesiologist:: Erasmo Barth CRNA Complications:: None Pre-procedure Diagnosis:: Right sacroiliitis Post-procedure Diagnosis:: Same Indications for Procedure:: Pleasant 62-year-old female comes to clinic today for right sacroiliac joint injection. She has extreme point tenderness over the right sacroiliac joint. She rates her pain 7/10. Procedure Details:: Procedure: Right sacroliliac joint injection under fluoroscopy Informed consent was obtained and the risk and benefits of the procedure were explained to the patient.~ The patient was taken to the procedure room and noninvasive monitors were placed including noninvasive blood pressure cuff and pulse oximeter.~ The patient was placed prone on the procedure table.~ The~ right hip was cleansed using Betadine as a cleansing solution.~ C-arm fluorosocpy was used to view the right SI joint.~ The skin and subcutaneous tissues were anesthetized using Lidocaine 1.5% and a 25-gauge needle.~ After this, a 22-gauge spinal needle was inserted under fluoroscopic guidance into the inferior aspect of the right SI joint.~ Omnipaque dye was injected and a good spread was seen throughout the joint.~ After this, approximately 5 mL of bupivacaine 0.25% and Depo-Medrol 40 mg was incrementally injected into the sacroiliac joint.~ The patient tolerated the procedure well with no complications.~ The patient was observed in the Pain Clinic, then discharged home neurologically intact.~ Plan and Disposition:: Patient was discharged without incident.
== END 2022-12-09 10:21 | disposition home or self-care (01) ==
PROVIDERS: PCP Nurse Practitioner Family; Visit Provider Nurse Anesthetist, Certified Registered
DX: M46.1 Sacroiliitis, not elsewhere classified (principal)
CPT/HCPCS: 27096; G0260; J1040

== ENCOUNTER → 2023-01-08 09:07 | Outpatient (POV) | payer MEDICARE, SELFPAY ==
--- NOTE | 2023-01-08 09:13 | A.OFFVIS_ITS ---
[facility] Pain Management SOAP Note Subjective:: Patient is a pleasant 61-year-old female who presents today for follow-up of right SI injection on 12/09/2022.? We are currently treating the patient for degenerative disc disease of lumbar spine with lumbar radiculopathy symptoms, osteoarthritis right knee, sacroiliitis.? Today she states this injection has provided at least 60% improvement and is still continuing to provide additional relief.? She rates her pain today a 2 out of 10. Patient denies any new trauma or injury or any change to the type of pain she experiences. Patient is prescribed compounding cream along with gabapentin 100 mg 3 times a day. Patient denies any side effects from this medication. She is requesting a refi ll of her gabapentin today. Her Juan Luis is [phone].? Its been reviewed and appropriate. Review of Systems: General: No recent weight changes, no fever, no sleep disturbances Respiratory: No cough, no shortness of air, no recurring pulmonary infections Cardiovascular/peripheral vascular: No chest pain, no palpitations,? no edema, no shortness of breath Gastrointestinal: No new onset incontinence, normal bowel movements reported Genitourinary: No new onset incontinence Musculoskeletal: Low back pain Psychiatric: [Normal mood/affect] Neurological: [Denies weakness in extremities], [denies balance issues] Objective:: Physical Exam: General: Alert and oriented x3, no acute distress, pleasant and cooperative Lungs: Respirations even and unlabored, symmetrical chest expansion Eyes: PERRL Musculoskeletal: Flexion and extension of lumbar [spine] somewhat guarded secondary to pain, [antalgic gait noted] Neurological: Speech clear, no gross sensory deficit Assessment:: Degenerative disc disease of lumbar spine with lumbar radiculopathy symptoms, osteoarthritis right knee, sacroiliitis Plan:: Patient has had significant improvement of her pain symptoms along the right SI following her injection and does not require any additional injective therapy at this time. We will refill her gabapentin 100 mg 3 times daily and provide a 3- month supply of this medication. Patient will return to clinic in 1 month for reevaluation of symptoms and plan of care. Patient has been instructed to contact the clinic with any concerns before the next appointment. Dr. Abad has reviewed this note and agrees with this plan of care. This note was dictated using voice recognition software and make contain errors or omissions. [facility] Disclaimer: The information contained in this section may have been updated after the patient was seen, as this information can be updated by other users. Medical History Chest pain Family History Other No significant family history Social History Smoking Status: Never smoker alcohol intake: never substance use type: former substance user and opiates current occupational status: retired Travel in the last 8 weeks: None household members: spouse housing: house current occupational exposures/hazards: No caffeine: Yes
[2023-01-08 09:59] VITALS: BP 117/64; PULSE 75; RESP 18; O2SAT 97; BMI 37.2
== END | disposition home or self-care (01) ==
PROVIDERS: PCP Nurse Practitioner Family; Visit Provider Nurse Practitioner Family
DX: M51.16 Intervertebral disc disorders with radiculopathy, lumbar region (principal); M46.1 Sacroiliitis, not elsewhere classified; M17.11 Unilateral primary osteoarthritis, right knee
CPT/HCPCS: 99212; G0463

== ENCOUNTER → 2023-02-18 14:20 | Outpatient (POV) | payer MEDICARE, SELFPAY ==
[2023-02-18 14:39] VITALS: BP 113/68; PULSE 82; RESP 18; O2SAT 98; BMI 35.6
--- NOTE | 2023-02-18 15:01 | EXP.PAIN.SOA ---
[facility] Pain Management SOAP Note Subjective:: Patient is a pleasant 62-year-old female who presents today for follow-up. We are currently treating the patient for degenerative disc disease of lumbar spine with lumbar radiculopathy symptoms, osteoarthritis right knee, sacroiliitis. Today she rates her pain a 5 out of 10. Patient states that her pain is all in her right shoulder with radiating symptoms into her lower arm as well as neck pain. Patient states that she has not had any recent injuries or trauma and that this has been going on for some time. Patient does state that her previous injection that she had in her right SI back in November continues to do well and provide good relief. She does describe her pain in her neck and shoulder as an aching, throbbing sensation that is worse with increased activity. Patient does state that she can pop her shoulder with range of motion exercises and this does seem to give additional relief. Patient denies any recent imaging for her neck or shoulder and denies any injective history. Patient does state the pain interferes with her ability to perform activities of daily living such as cooking and cleaning. Patient is currently managed with compounding cream and gabapentin 100 mg 3 times a day. Patient denies any side effects from this medication. She states that she does typically only take 1 of these per day. She states that she does not need any refills at this time. Her Juan Luis is [id number]. Its been reviewed and appropriate. Review of Systems: General: No recent weight changes, no fever, no sleep disturbances Respiratory: No cough, no shortness of air, no recurring pulmonary infections Cardiovascular/peripheral vascular: No chest pain, no palpitations, no edema, no shortness of breath Gastrointestinal: No new onset incontinence, normal bowel movements reported Genitourinary: No new onset incontinence Musculoskeletal: Right shoulder pain, neck pain Psychiatric: [Normal mood/affect] Neurological: [Denies weakness in extremities], [denies balance issues] Objective:: Physical Exam: General: Alert and oriented x3, no acute distress, pleasant and cooperative Lungs: Respirations even and unlabored, symmetrical chest expansion Eyes: PERRL Musculoskeletal: Flexion and extension of right shoulder somewhat guarded secondary to pain, [antalgic gait noted] point tenderness noted along right cervical paraspinous and right trapezius muscles Neurological: Speech clear, no gross sensory deficit Assessment:: Degenerative disc disease of lumbar spine with lumbar radiculopathy symptoms, osteoarthritis right knee, sacroiliitis, myofascial pain, right shoulder pain Plan:: Patient is experiencing significant pain in her right shoulder with limited range of motion. I have discussed with the patient that she may benefit from a right shoulder intra-articular injection as well as possible trigger point injections or cervical epidural in the future. Risk and benefits were discussed with the patient and she would like to proceed forward with this plan of care. I have also counseled the patient that in the future we may look at ordering additional imaging at these locations. Patient will be scheduled for a right shoulder intra-articular injection. Patient has been instructed to contact the clinic with any concerns before the next appointment. Dr. Abad has reviewed this note and agrees with this plan of care. This note was dictated using voice recognition software and make contain errors or omissions. [facility] Disclaimer: The information contained in this section may have been updated after the patient was seen, as this information can be updated by other users. Medical History Chest pain Family History Other No significant family history Social History Smo
== END ==
PROVIDERS: Visit Provider Nurse Practitioner Family
DX: M51.16 Intervertebral disc disorders with radiculopathy, lumbar region (principal); M17.11 Unilateral primary osteoarthritis, right knee; M46.1 Sacroiliitis, not elsewhere classified; M79.10 Myalgia, unspecified site; M25.511 Pain in right shoulder
CPT/HCPCS: 99212; G0463

== ENCOUNTER 2023-03-10 09:49 | Day surgery (SDC) | payer MEDICARE, SELFPAY ==
[2023-03-10 09:58] VITALS: BP 134/76; PULSE 75; RESP 18; O2SAT 97
--- NOTE | 2023-03-10 10:01 | P.PCN_ITS ---
Procedure Date: 03/10/23 Time: 09:55 Anesthesiologist:: Erasmo Barth CRNA Complications:: None Pre-procedure Diagnosis:: Osteoarthritis right shoulder. Chronic right shoulder pain. Post-procedure Diagnosis:: Same. Indications for Procedure:: Patient is a very pleasant 62-year-old female who presents to our clinic today for right intra-articular shoulder injection. Patient complains of right shoulder pain that is dull, aching, sharp and stabbing at times. She rates her pain 8/10. Patient has 5/5 strength in her right arm. However, patient has limited range of motion due to pain in the right shoulder joint. Procedure Details:: Procedure Details: Right shoulder intra-articular injection Informed consent was obtained risk and benefits of the procedure were explained to the patient. Patient was taken to the procedure room. The right shoulder was prepped using ChloraPrep. A 25-gauge needle was used first anteriorly, laterally, and then posteriorly to inject 10 mL bupivacaine 0.25% and Depo- Medrol 40 mg. Patient tolerated procedure well with no complications. Plan and Disposition: We will follow-up with her in 2 weeks. Will reevaluate symptoms at that time. We will plan on a knee injection on October 04. Plan and Disposition:: Patient was discharged without incident.
[2023-03-10 10:04] VITALS: BP 129/74; PULSE 67; RESP 18; TEMP 36.3; O2SAT 100; BMI 33.0
[2023-03-10 10:22] VITALS: BP 133/79; PULSE 68; RESP 18; O2SAT 100
== END 2023-03-10 10:22 | disposition home or self-care (01) ==
PROVIDERS: PCP Nurse Practitioner Family; Visit Provider Nurse Anesthetist, Certified Registered
DX: M19.011 Primary osteoarthritis, right shoulder (principal); M25.511 Pain in right shoulder; G89.29 Other chronic pain
CPT/HCPCS: 20610; J1040

== ENCOUNTER → 2023-04-23 14:50 | Outpatient (POV) | payer MEDICARE, SELFPAY ==
--- NOTE | 2023-04-23 14:53 | EXP.PAIN.SOA ---
[facility] Pain Management SOAP Note Subjective:: Patient is a pleasant 62-year-old female who presents today for follow-up of right shoulder intra-articular injection on 03/10/2023. We are currently treating the patient for degenerative disc disease of lumbar spine with lumbar radiculopathy symptoms, osteoarthritis right knee, sacroiliitis, right shoulder pain. Today she rates her pain a 0 out of 10. She states that she has had 90 to 100% improvement following this injection and feels like it still continuing to provide additional relief. Patient states that she has not been having the stiff sensations that she wakes up with in the morning and that she has been able to increase her activity with decreased pain. She states right now her low back and knee is doing well too. Patient is currently managed with compounding cream and gabapentin 100 mg 3 times a day. Patient denies any side effects from this medication. Her Juan Luis is [phone]. Its been reviewed and appropriate. Review of Systems: General: No recent weight changes, no fever, no sleep disturbances Respiratory: No cough, no shortness of air, no recurring pulmonary infections Cardiovascular/peripheral vascular: No chest pain, no palpitations, no edema, no shortness of breath Gastrointestinal: No new onset incontinence, normal bowel movements reported Genitourinary: No new onset incontinence Musculoskeletal: Low back pain Psychiatric: [Normal mood/affect] Neurological: [Denies weakness in extremities], [denies balance issues] Objective:: Physical Exam: General: Alert and oriented x3, no acute distress, pleasant and cooperative Lungs: Respirations even and unlabored, symmetrical chest expansion Eyes: PERRL Musculoskeletal: Flexion and extension of lumbar [spine] somewhat guarded secondary to pain, [antalgic gait noted] Neurological: Speech clear, no gross sensory deficit Assessment:: Degenerative disc disease of lumbar spine with lumbar radiculopathy symptoms, osteoarthritis right knee, right shoulder pain Plan:: Patient continues to have significant improvement following her right shoulder intra-articular injection and does not require any additional injective therapy at this time. I will refill the patient's gabapentin 100 mg 3 times daily and provide a 3 month supply of this medication. Patient will return to clinic in 1 month for reevaluation of symptoms and plan of care. Patient has been instructed to contact the clinic with any concerns before the next appointment. Dr. Abad has reviewed this note and agrees with this plan of care. This note was dictated using voice recognition software and make contain errors or omissions. [facility] Disclaimer: The information contained in this section may have been updated after the patient was seen, as this information can be updated by other users. Medical History Chest pain Family History Other No significant family history Social History Smoking Status: Never smoker alcohol intake: never substance use type: former substance user and opiates current occupational status: disabled Travel in the last 8 weeks: None household members: spouse housing: house current occupational exposures/hazards: No caffeine: Yes
[2023-04-23 15:07] VITALS: BP 137/80; PULSE 99; RESP 18; O2SAT 97; BMI 32.1
== END | disposition home or self-care (01) ==
PROVIDERS: PCP Nurse Practitioner Family; Visit Provider Nurse Practitioner Family
DX: M51.16 Intervertebral disc disorders with radiculopathy, lumbar region (principal); M17.11 Unilateral primary osteoarthritis, right knee; M46.1 Sacroiliitis, not elsewhere classified; M25.511 Pain in right shoulder
CPT/HCPCS: 99212; G0463

== ENCOUNTER → 2023-05-21 15:00 | Outpatient (POV) | payer MEDICARE, SELFPAY ==
--- NOTE | 2023-05-21 15:45 | EXP.PAIN.SOA ---
[facility] Pain Management SOAP Note Subjective:: Patient is a pleasant 62-year-old female who presents today for 1 month follow-up. We are currently treating the patient for degenerative disc disease of lumbar spine with lumbar radiculopathy symptoms, osteoarthritis right knee, sacroiliitis, right shoulder pain. Today she rates her pain a 6 out of 10. Patient denies any new trauma or injury. Patient does state that her low back is starting to flare back up. She describes this as an aching, throbbing sensation with stiffness that is worse with increased activity. She does state the pain interferes with her ability perform activities of daily living. Patient previously had a lumbar epidural steroid injection of L4-L5 back in July 01, 2022. This injection did provide significant relief. Patient's last injection was a right shoulder intra-articular injection back in February that did provide significant relief of upwards of 90 to 100% improvement. Today she states that she is still continue to have relief in her right shoulder pain as well as she believes this did help some of her neck issues. Patient is currently is prescribed compounding cream and gabapentin 100 mg 3 times a day. Patient denies any heart or kidney issues. Her Juan Luis is [phone]. Its been reviewed and appropriate. Review of Systems: General: No recent weight changes, no fever, no sleep disturbances Respiratory: No cough, no shortness of air, no recurring pulmonary infections Cardiovascular/peripheral vascular: No chest pain, no palpitations, no edema, no shortness of breath Gastrointestinal: No new onset incontinence, normal bowel movements reported Genitourinary: No new onset incontinence Musculoskeletal: Low back pain, bilateral leg pain Psychiatric: [Normal mood/affect] Neurological: [Denies weakness in extremities], [denies balance issues] Objective:: Physical Exam: General: Alert and oriented x3, no acute distress, pleasant and cooperative Lungs: Respirations even and unlabored, symmetrical chest expansion Eyes: PERRL Musculoskeletal: Flexion and extension of lumbar [spine] somewhat guarded secondary to pain, [antalgic gait noted] Neurological: Speech clear, no gross sensory deficit Assessment:: Degenerative disc disease of lumbar spine with lumbar radiculopathy symptoms, osteoarthritis right knee, sacroiliitis, right shoulder pain Plan:: PatientPatient is experiencing worsening pain in her low back with limited range of motion of her lumbar spine. I have discussed with the patient that she may benefit from a repeat lumbar epidural steroid injection. Patient does state she would like to wait and see how it goes over the next month before proceeding forward with this injection. I have counseled the patient that she can call and schedule this injection between now and her next visit if the pain worsens. Was given a 3-month supply of her gabapentin at her last visit and does not require any additional refills at this time. I have counseled the patient that I will send in a new prescription of diclofenac 75 mg twice daily and provide a 1 month supply of this medication. I have counseled the patient to discontinue all other NSAIDs while taking this medication and to take it with food to minimize GI upset. Patient will be scheduled for 1 month follow-up for reevaluation of symptoms and plan of care. Patient has been instructed to contact the clinic with any concerns before the next appointment. Dr. Abad has reviewed this note and agrees with this plan of care. This note was dictated using voice recognition software and make contain errors or omissions. [facility] Disclaimer: The information contained in this section may have been updated after the patient was seen, as this information can be updated by other users. Medical History Chest pain Family History Other No si
[2023-05-21 15:47] VITALS: BP 117/72; PULSE 81; RESP 18; O2SAT 96; BMI 32.1
== END | disposition home or self-care (01) ==
PROVIDERS: PCP Nurse Practitioner Family; Visit Provider Nurse Practitioner Family
DX: M51.16 Intervertebral disc disorders with radiculopathy, lumbar region (principal); M17.11 Unilateral primary osteoarthritis, right knee; M46.1 Sacroiliitis, not elsewhere classified; M25.511 Pain in right shoulder
CPT/HCPCS: 99212; G0463

== ENCOUNTER → 2023-06-18 14:20 | Outpatient (POV) | payer MEDICARE, SELFPAY ==
--- NOTE | 2023-06-18 14:44 | EXP.PAIN.SOA ---
[facility] Pain Management SOAP Note Subjective:: Patient is a pleasant 62-year-old female who presents today for follow-up. We are currently treating the patient for degenerative disc disease of lumbar spine with lumbar radiculopathy symptoms, osteoarthritis right knee, sacroiliitis, right shoulder pain. Today she rates her pain a 6 out of 10. Patient denies any new trauma or injury from her last visit. She does state that her back has continued to bother her more since our last visit and describes it as an aching, throbbing sensation with stiffness and numbness and tingling into her lower extremities. Patient does state the pain interferes with her ability perform activities of daily living such as cooking and cleaning. Patient did have a lumbar epidural back in July 2022 that did provide at least 50% improvement lasting up until around the couple months. She does state today that she would like to repeat this injection. While that injection was working she felt more functional and was able to do more activities with decreased pain symptoms. Patient is currently managed with diclofenac 100 mg 3 times a day, diclofenac 75 mg twice a day and compounded cream. Her Juan Luis is [id number]. Its been reviewed and appropriate. Review of Systems: General: No recent weight changes, no fever, no sleep disturbances Respiratory: No cough, no shortness of air, no recurring pulmonary infections Cardiovascular/peripheral vascular: No chest pain, no palpitations, no edema, no shortness of breath Gastrointestinal: No new onset incontinence, normal bowel movements reported Genitourinary: No new onset incontinence Musculoskeletal: Low back pain, bilateral leg pain/numbness tingling Psychiatric: [Normal mood/affect] Neurological: [Denies weakness in extremities], [denies balance issues] Objective:: Physical Exam: General: Alert and oriented x3, no acute distress, pleasant and cooperative Lungs: Respirations even and unlabored, symmetrical chest expansion Eyes: PERRL Musculoskeletal: Flexion and extension of lumbar [spine] somewhat guarded secondary to pain, [antalgic gait noted] positive bilateral leg raise Neurological: Speech clear, no gross sensory deficit Assessment:: Degenerative disc disease of lumbar spine with lumbar radiculopathy symptoms, osteoarthritis right knee, sacroiliitis, right shoulder pain Plan:: Patient is experiencing significant pain in her low back and legs with limited range of motion of the lumbar spine. I have discussed with the patient that she may benefit from repeat lumbar epidural steroid injection. Risk and benefits were discussed with patient and she would like to proceed forward with this plan of care. Patient is not on any blood thinners. Patient has previously had a lumbar epidural back in July 2022 that did provide at least 50% improvement lasting several months. We will schedule the patient for a LESI L4-L5. Patient has been instructed to contact the clinic with any concerns before the next appointment. Dr. Abad has reviewed this note and agrees with this plan of care. This note was dictated using voice recognition software and make contain errors or omissions. [facility] Disclaimer: The information contained in this section may have been updated after the patient was seen, as this information can be updated by other users. Medical History Chest pain Family History Other No significant family history Social History Smoking Status: Never smoker alcohol intake: never substance use type: former substance user and opiates current occupational status: disabled Travel in the last 8 weeks: None household members: spouse housing: house current occupational exposures/hazards: No caffeine: Yes
[2023-06-18 15:11] VITALS: BP 124/77; PULSE 67; RESP 18; O2SAT 98; BMI 32.8
== END ==
PROVIDERS: PCP Nurse Practitioner Family; Visit Provider Nurse Practitioner Family
DX: M51.16 Intervertebral disc disorders with radiculopathy, lumbar region (principal); M17.11 Unilateral primary osteoarthritis, right knee; M46.1 Sacroiliitis, not elsewhere classified; M25.511 Pain in right shoulder
CPT/HCPCS: 99212; G0463

== ENCOUNTER 2023-06-30 09:14 | Day surgery (SDC) | payer MEDICARE, SELFPAY ==
[2023-06-30 09:27] VITALS: BP 172/78; PULSE 61; RESP 18; TEMP 36.2; O2SAT 99; BMI 33.8
--- NOTE | 2023-06-30 09:40 | EXP.PAIN.PRO ---
Procedure Date: 06/30/23 Time: 09:30 Anesthesiologist:: Erasmo Barth CRNA Complications:: None Pre-procedure Diagnosis:: Degenerative disc lumbar spine multilevels. Lumbar radiculopathy. Post-procedure Diagnosis:: Same. Indications for Procedure:: Patient is a very pleasant 62-year-old female comes our clinic today for lumbar epidural steroid injection at the L4-5 level. Patient describes low back pain as constant, dull, aching. Patient also complains of bilateral hip and leg radicular symptoms. She rates her pain 7/10. Procedure Details:: Procedure: Lumbar epidural steroid injection under fluoroscopy Informed consent was obtained and the risks and benefits of the procedure were explained to the patient. The patient was taken to the procedure room and noninvasive monitors placed, including noninvasive blood pressure cuff and pulse oximeter. The back was viewed using C-arm Fluoroscopy and prepped using Chloraprep as a cleansing solution and the L4-L5 interspace was palpated. Skin and subcutaneous tissues were anesthetized using lidocaine 1.5% and a 25-gauge needle. After this, an 18-gauge Touhy epidural needle was placed into the L4-L5 interspace and advanced using fluoroscopic guidance and loss of resistance to air until the epidural space was encountered. After confirmation of needle placement in the epidural space, with dye, a solution containing normal saline, 3 mL and Depo-Medrol 80 mg were incrementally injected into the lumbar epidural space. The patient tolerated the procedure well with no complications. The patient was observed in the Pain Clinic and then discharged home neurologically intact. Plan and Disposition:: Patient was discharged without incident.
[2023-06-30 09:41] VITALS: BP 149/96; PULSE 62; RESP 19; O2SAT 97
[2023-06-30 09:42] VITALS: BP 149/96; PULSE 67; RESP 18; O2SAT 97
[2023-06-30 09:45] VITALS: BP 146/72; PULSE 52; RESP 18; O2SAT 99
== END 2023-06-30 09:45 | disposition home or self-care (01) ==
PROVIDERS: PCP Nurse Practitioner Family; Visit Provider Nurse Anesthetist, Certified Registered
DX: M51.16 Intervertebral disc disorders with radiculopathy, lumbar region (principal)
CPT/HCPCS: 62323; J1040

== ENCOUNTER → 2023-07-16 13:32 | Outpatient (POV) | payer MEDICARE, SELFPAY ==
[2023-07-16 13:45] VITALS: BP 136/73; PULSE 81; RESP 18; O2SAT 99; BMI 33.0
--- NOTE | 2023-07-16 14:02 | EXP.PAIN.SOA ---
[facility] Pain Management SOAP Note Subjective:: Patient is a pleasant 62-year-old female who presents today for follow-up of lumbar epidural steroid injection L4-L5 on 06/30/2023. We are currently treating the patient for degenerative disc disease of lumbar spine with lumbar radiculopathy symptoms, osteoarthritis right knee, sacroiliitis, right shoulder pain. Today she rates her pain a 7 out of 10. Patient states that she did have 70% improvement following this injection however at the last couple of days she has started to experience more pain. Patient states while the injection was working well she was able to increase her activity with decreased pain symptoms. She does describe her pain now as a burning sensation that does seem to come and go and is not as bad as what it was prior. Patient did previously have a lumbar epidural back in July 2022 that did provide 50% improvement lasting several months. Patient is currently prescribed diclofenac 75 mg twice daily and gabapentin 100 mg 3 times a day. Patient denies any side effects from these medications. She states she does not need any refills. Patient is also prescribed compounded cream. Her Juan Luis has been reviewed and is appropriate. Review of Systems: General: No recent weight changes, no fever, no sleep disturbances Respiratory: No cough, no shortness of air, no recurring pulmonary infections Cardiovascular/peripheral vascular: No chest pain, no palpitations, no edema, no shortness of breath Gastrointestinal: No new onset incontinence, normal bowel movements reported Genitourinary: No new onset incontinence Musculoskeletal: Low back pain Psychiatric: [Normal mood/affect] Neurological: [Denies weakness in extremities], [denies balance issues] Objective:: Physical Exam: General: Alert and oriented x3, no acute distress, pleasant and cooperative Lungs: Respirations even and unlabored, symmetrical chest expansion Eyes: PERRL Musculoskeletal: Flexion and extension of lumbar [spine] somewhat guarded secondary to pain, [antalgic gait noted] Neurological: Speech clear, no gross sensory deficit Assessment:: Degenerative disc disease of lumbar spine with lumbar radiculopathy symptoms, osteoarthritis right knee, sacroiliitis, right shoulder pain Plan:: Patient is experiencing some pain in her low back however it is not constant and has came and gone the last couple of days. I have discussed with the patient that I will send in a 5-day dose of prednisone 20 mg twice daily. I have also counseled the patient in future she may benefit from a repeat lumbar epidural. Patient will return to clinic in 2 weeks for reevaluation of symptoms and plan of care. Patient has been instructed to contact the clinic with any concerns before the next appointment. Dr. Abad has reviewed this note and agrees with this plan of care. This note was dictated using voice recognition software and make contain errors or omissions. [facility] Disclaimer: The information contained in this section may have been updated after the patient was seen, as this information can be updated by other users. Medical History Chest pain Family History Other No significant family history Social History Smoking Status: Never smoker alcohol intake: never substance use type: former substance user and opiates current occupational status: disabled Travel in the last 8 weeks: None household members: spouse housing: house current occupational exposures/hazards: No caffeine: Yes
== END | disposition home or self-care (01) ==
PROVIDERS: PCP Nurse Practitioner Family; Visit Provider Nurse Practitioner Family
DX: M51.16 Intervertebral disc disorders with radiculopathy, lumbar region (principal); M17.11 Unilateral primary osteoarthritis, right knee; M46.1 Sacroiliitis, not elsewhere classified; M25.511 Pain in right shoulder
CPT/HCPCS: 99212; G0463

== ENCOUNTER 2023-07-31 12:38 | Emergency (ER) | payer MEDICARE, SELFPAY ==
--- NOTE | 2023-07-31 12:52 | EXP.UTC ---
Discharge Plan Disposition Patient Disposition: Home, Self-Care Condition: Good Prescriptions Prescriptions: New benzonatate [benzonatate] 100 mg capsule 100 mg PO TIDP PRN (Reason: Cough) Qty: 30 0RF amoxicillin-pot clavulanate 875-125 mg Tablet 1 tab PO Q12H Qty: 20 0RF methylprednisolone 4 mg Tablets,Dose Pack 4 mg PO DIRECTED Qty: 21 0RF guaifenesin [Mucinex] 600 mg tablet extended release 12hr 600 - 1,200 mg PO BIDP PRN (Reason: Congestion) Qty: 30 0RF albuterol sulfate [Ventolin HFA] 90 mcg/actuation HFA aerosol inhaler 2 puff inhalation Q6H PRN (Reason: shortness of breath or wheezing) Qty: 6.7 0RF No Action phentermine 37.5 mg capsule 37.5 mg PO DAILY Qty: 30 0RF Rx Instructions: must administer 30 minutes before or 1-2 hours after breakfast omeprazole 20 mg capsule,delayed release(DR/EC) See Rx Instructions .ROUTE .COMPLEX Qty: 76 0RF Dose Instruction: Take 1 capsule by mouth once daily Rx Instructions: Take 1 capsule by mouth once daily lisinopril 5 mg tablet See Rx Instructions .ROUTE .COMPLEX Qty: 30 0RF Dose Instruction: TAKE 1 TABLET BY MOUTH ONCE DAILY FOR BLOOD PRESSURE (NEEDS APPOINTMENT BEFORE ANYMORE REFILLS) Rx Instructions: TAKE 1 TABLET BY MOUTH ONCE DAILY FOR BLOOD PRESSURE (NEEDS APPOINTMENT BEFORE ANYMORE REFILLS) diclofenac sodium 75 mg tablet,delayed release (DR/EC) 75 mg PO BID Qty: 60 0RF naproxen 500 MG tablet 500 mg PO BID Qty: 0 0RF polyethylene glycol 3350 238 GM powder 17 g PO DAILY furosemide 20 mg tablet See Rx Instructions .ROUTE .COMPLEX Rx Instructions: TAKE 1 TABLET BY MOUTH ONCE DAILY FOR EDEMA gabapentin 100 mg capsule 100 mg PO TID Qty: 270 0RF Referrals Follow up/Referrals: Ronal Duong APRN [Primary Care Provider] - See instructions Activity Restrictions/Add. Instructions Additional Instructions/Restrictions: Drink plenty of fluids. Take tylenol for pain or fever. Take the medications as directed. Follow up with your regular doctor. GO TO THE ER FOR ANY WORSENING SYMPTOMS Clinical Impressions Clinical Impression: Acute bronchitis, Sinusitis Instructions Patient Instructions: DI for Sinusitis, DI for Acute Bronchitis Discharge ED Provider: Jose D Escobar [facility] [place] H[place] General Stated complaint: soa cough congestion Time Seen by Provider: 07/31/23 12:52 History of Present Illness Provider Complaint: He states that for the past 1 week he has had sinus congestion. He states that his symptoms are worsening. Related Data Home Medications Medication Instructions Recorded Confirmed polyethylene glycol 3350 17 17 g PO DAILY BOWELS 02/04/22 07/16/23 gram/dose oral powder furosemide 20 mg tablet See Rx Instructions .Route 12/04/22 07/16/23 .COMPLEX Fluid Previous Rx's Medication Instructions Recorded phentermine 37.5 mg capsule 37.5 mg PO DAILY Weight loss #30 01/22/22 caps naproxen 500 mg tablet 500 mg PO BID Pain #0 tabs 04/07/22 diclofenac sodium 75 mg 75 mg PO BID #60 tabs 05/21/23 tablet,delayed release omeprazole 20 mg capsule,delayed See Rx Instructions .Route 06/17/23 release .COMPLEX #76 caps lisinopril 5 mg tablet See Rx Instructions .Route 06/23/23 .COMPLEX #30 tabs gabapentin 100 mg capsule 100 mg PO TID . #270 caps 07/27/23 albuterol sulfate 90 mcg/actuation 2 puff inhalation Q6H PRN 07/31/23 aerosol inhaler (Ventolin HFA) shortness of breath or wheezing #6.7 grams amoxicillin 875 mg-potassium 1 tab PO Q12H #20 tabs 07/31/23 clavulanate 125 mg tablet benzonatate 100 mg capsule 100 mg PO TIDP PRN Cough #30 caps 07/31/23 guaifenesin 600 mg tablet, 600 - 1,200 mg PO BIDP PRN 07/31/23 extended release 12 hr (Mucinex) Congestion #30 tabs methylprednisolone 4 mg tablets in 4 mg PO DIRECTED #21 tabs 07/31/23 a dose pack Allergies Allergy/AdvReac Type Severity Reaction Status Date / Time
[2023-07-31 13:00] VITALS: BP 140/88; PULSE 85; RESP 20; TEMP 36.9; O2SAT 96; BMI 30.7
[2023-07-31 13:52] VITALS: BP 139/77; PULSE 76; RESP 16; TEMP 37; O2SAT 96
== END 2023-07-31 13:53 | disposition home or self-care (01) ==
PROVIDERS: Emergency Provider Nurse Practitioner Family; PCP Nurse Practitioner Family
DX: J20.9 Acute bronchitis, unspecified (principal); J01.90 Acute sinusitis, unspecified; R06.02 Shortness of breath; R05.9 Cough, unspecified; R09.81 Nasal congestion
CPT/HCPCS: 87635; 99204; 99212; G0463

== ENCOUNTER → 2023-08-03 13:51 | Outpatient (POV) | payer MEDICARE, SELFPAY ==
[2023-08-03 14:06] VITALS: BP 114/68; PULSE 86; RESP 18; O2SAT 96; BMI 34.0
--- NOTE | 2023-08-03 14:35 | EXP.PAIN.SOA ---
[facility] Pain Management SOAP Note Subjective:: Patient is a pleasant 62-year-old female who presents today for follow-up. We are currently treating the patient for degenerative disc disease of lumbar spine with lumbar radiculopathy symptoms, osteoarthritis right knee, sacroiliitis, right shoulder pain. Today she rates her pain a 6 out of 10. Patient denies any new trauma or injury. At her last visit we did send in a 5-day dose of prednisone 20 mg twice a day. Patient states that this medication did help and that she had better improvement of pain while on this. Patient does state that she recently went to the doctor on Thursday due to a upper respiratory infection. She states that she felt like she could not catch her breath and may have just been aggravated by her work outside. Patient states that she is now currently on a Z-Nigel and was given a inhaler. She does state overall this is helping. Patient is managed from our office with diclofenac 75 mg twice a day and gabapentin 100 mg 3 times a day. Patient denies any side effects from this medications and states that she does not need refills at this time. Patient was just given a 3-month supply of her gabapentin. Patient is also prescribed compounded cream. Patient is requesting a low-dose medication for pain to help with some of her symptoms. Patient did previously have a lumbar epidural that did provide 70% relief however only lasted short-term. Patient is interested in repeating this injection however does want to be very mindful of her steroid use and would like to keep it at every 3 months. Her Juan Luis has been reviewed and is appropriate. Review of Systems: General: No recent weight changes, no fever, no sleep disturbances Respiratory: No cough, no shortness of air, no recurring pulmonary infections Cardiovascular/peripheral vascular: No chest pain, no palpitations, no edema, no shortness of breath Gastrointestinal: No new onset incontinence, normal bowel movements reported Genitourinary: No new onset incontinence Musculoskeletal: Low back pain Psychiatric: [Normal mood/affect] Neurological: [Denies weakness in extremities], [denies balance issues] Objective:: Physical Exam: General: Alert and oriented x3, no acute distress, pleasant and cooperative Lungs: Respirations even and unlabored, symmetrical chest expansion Eyes: PERRL Musculoskeletal: Flexion and extension of lumbar [spine] somewhat guarded secondary to pain, [antalgic gait noted] Neurological: Speech clear, no gross sensory deficit Assessment:: Degenerative disc disease of lumbar spine with lumbar radiculopathy symptoms, osteoarthritis right knee, sacroiliitis, right shoulder pain Plan:: Patient continues to experience low back pain with limited range of motion. Patient denies any heart or kidney issues. I will send in tramadol 50 mg daily and provide a 1 month supply of this medication. Patient will return to clinic in 1 month for reevaluation of symptoms and plan of care. Patient has been instructed to contact the clinic with any concerns before the next appointment. Dr. Abad has reviewed this note and agrees with this plan of care. This note was dictated using voice recognition software and make contain errors or omissions. [facility] Disclaimer: The information contained in this section may have been updated after the patient was seen, as this information can be updated by other users. Medical History (Updated 07/31/23 @ 13:35 by Jose D Escobar APRN) Chest pain Family History Other No significant family history Social History Smoking Status: Never smoker alcohol intake: never substance use type: former substance user and opiates current occupational status: employed Travel in the last 8 weeks: None household members: spouse housing: house current occupational exposures/hazards: No caffeine: Yes
== END | disposition home or self-care (01) ==
PROVIDERS: PCP Nurse Practitioner Family; Visit Provider Nurse Practitioner Family
DX: M51.16 Intervertebral disc disorders with radiculopathy, lumbar region (principal); M17.11 Unilateral primary osteoarthritis, right knee; M46.1 Sacroiliitis, not elsewhere classified; M25.511 Pain in right shoulder
CPT/HCPCS: 99212; G0463

== ENCOUNTER → 2023-08-11 11:42 | Outpatient (CLI) | payer MEDICARE, SELFPAY ==
--- NOTE | 2023-08-11 11:50 | XR_ITS ---
FINAL REPORT TECHNIQUE: Chest PA & Lateral CLINICAL HISTORY: dyspnea FINDINGS: 2 views of the chest were performed. The heart size is normal. The mediastinum is within normal limits. There is no acute cardiopulmonary process. There are no pleural effusions. There is no pneumothorax. The bony thorax appears intact. IMPRESSION: No acute cardiopulmonary process. Reviewed, Interpreted and Dictated by Chris Núñez MD Transcribed by Cyndie Smith Authenticated and [facility]
[2023-08-11 16:02] LABS: Adenovirus,PCR Not Detected (NotDetected); Coronavirus 19, PCR Not Detected (NotDetected); Coronavirus 229E Not Detected (NotDetected); Coronavirus NL63 Not Detected (NotDetected); Coronavirus OC43 Not Detected (NotDetected); Coronovirus HKU1,PCR Not Detected (NotDetected); Human Metapneumovirus Not Detected (NotDetected); Influenza A, PCR Not Detected (NotDetected); Influenza AH1, 2009 Not Detected (NotDetected); Influenza AH1, PCR Not Detected (NotDetected); Influenza AH3,PCR Not Detected (NotDetected); Influenza B, PCR Not Detected (NotDetected); Parainfluenza 1, PCR Not Detected (NotDetected); Parainfluenza 2, PCR Not Detected (NotDetected); Parainfluenza 3, PCR Not Detected (NotDetected); Parainfluenza 4, PCR Not Detected (NotDetected); Respiratory Syncytial Virus Not Detected (NotDetected); Rhinovirus/Enterovirus Not Detected (NotDetected)
== END ==
LOC: LAB 11:44 → LAB.DROPOF 18:23
PROVIDERS: PCP Nurse Practitioner Family; Visit Provider Nurse Practitioner Family
DX: R06.00 Dyspnea, unspecified (principal); R05.8 Other specified cough; R06.2 Wheezing; R50.9 Fever, unspecified
CPT/HCPCS: 71046; 87581; 87632; 87635; 87798

== ENCOUNTER → 2023-09-02 14:02 | Outpatient (POV) | payer MEDICARE, SELFPAY ==
--- NOTE | 2023-09-02 14:39 | EXP.PAIN.SOA ---
[facility] Pain Management SOAP Note Subjective:: Patient is a pleasant 62-year-old female who presents today for medication refill and follow-up. We are currently treating the patient for degenerative disc disease of lumbar spine with lumbar radiculopathy symptoms, osteoarthritis right knee, sacroiliitis, right shoulder pain. Today she rates her pain a 3 out of 10. Patient denies any new trauma or injury since our last visit. Patient does state that the tramadol really did make a significant improvement of her overall pain symptoms. Patient is currently managed with diclofenac 75 mg twice a day, gabapentin 100 mg 3 times a day and tramadol 50 mg daily. Patient denies any side effects from these medications. She does state that she believes she only needs refill on the tramadol. Patient is also prescribed compounded cream. Her Juan Luis has been reviewed and is appropriate. Review of Systems: General: No recent weight changes, no fever, no sleep disturbances Respiratory: No cough, no shortness of air, no recurring pulmonary infections Cardiovascular/peripheral vascular: No chest pain, no palpitations, no edema, no shortness of breath Gastrointestinal: No new onset incontinence, normal bowel movements reported Genitourinary: No new onset incontinence Musculoskeletal: Low back pain Psychiatric: [Normal mood/affect] Neurological: [Denies weakness in extremities], [denies balance issues] Objective:: Physical Exam: General: Alert and oriented x3, no acute distress, pleasant and cooperative Lungs: Respirations even and unlabored, symmetrical chest expansion Eyes: PERRL Musculoskeletal: Flexion and extension of lumbar [spine] somewhat guarded secondary to pain, [antalgic gait noted] Neurological: Speech clear, no gross sensory deficit Assessment:: Degenerative disc disease of lumbar spine with lumbar radiculopathy symptoms, right knee pain, sacroiliitis, right shoulder pain Plan:: I will refill the patient's tramadol 50 mg daily and provide a 3-month supply of this medication. I have discussed with the patient that I will plan on seeing her back around the beginning of October for reevaluation of symptoms and plan of care. Patient has previously had lumbar epidurals that have provided 70% improvement and typically she does get these injections about every 3 months. We will follow-up with this at her next visit. Patient has been instructed to contact the clinic with any concerns before the next appointment. Dr. Abad has reviewed this note and agrees with this plan of care. This note was dictated using voice recognition software and make contain errors or omissions. [facility] Disclaimer: The information contained in this section may have been updated after the patient was seen, as this information can be updated by other users. Medical History (Updated 08/16/23 @ 20:50 by Susu Zavala APRN) Acute bronchitis Chest pain Sinusitis Family History Other No significant family history Social History Smoking Status: Never smoker alcohol intake: never substance use type: former substance user and opiates current occupational status: employed Travel in the last 8 weeks: None household members: spouse housing: house current occupational exposures/hazards: No caffeine: Yes
[2023-09-02 14:59] VITALS: BP 116/78; PULSE 81; RESP 18; O2SAT 97; BMI 35.9
== END | disposition home or self-care (01) ==
PROVIDERS: PCP Nurse Practitioner Family; Visit Provider Nurse Practitioner Family
DX: M51.16 Intervertebral disc disorders with radiculopathy, lumbar region (principal); M25.561 Pain in right knee; M46.1 Sacroiliitis, not elsewhere classified; M25.511 Pain in right shoulder
CPT/HCPCS: 99212; G0463

== ENCOUNTER → 2023-10-01 13:58 | Outpatient (POV) | payer MEDICARE, SELFPAY ==
--- NOTE | 2023-10-01 14:02 | A.OFFVIS_ITS ---
[facility] Pain Management SOAP Note Subjective:: Patient is a pleasant 63-year-old female who presents today for 1 month follow- up. We are currently treating the patient for degenerative disc disease of lumbar spine with lumbar radiculopathy symptoms, osteoarthritis right knee, sacroiliitis, right shoulder pain. Today she rates her pain a 7 out of 10. Patient denies any new trauma or injury. She does state that she is starting to have more pain in and around her low back with radiating symptoms into her legs. Patient does describe this as an aching, nagging sensation with numbness and tingling. Patient does state the pain is starting to interfere with her activities of daily living such as cooking and cleaning. Patient had her last lumbar epidural steroid injection back on June 30 that did provide upwards of 70% relief and had continued to provide good relief up until the last couple of weeks. Patient is currently managed with diclofenac 75 mg twice a day, gabapentin 100 mg 3 times a day and tramadol 50 mg daily. Patient denies any side effects from these medications. She does not need any refills at this time. Patient is also prescribed compounded cream. Her Juan Luis has been reviewed and is appropriate. Review of Systems: General: No recent weight changes, no fever, no sleep disturbances Respiratory: No cough, no shortness of air, no recurring pulmonary infections Cardiovascular/peripheral vascular: No chest pain, no palpitations, no edema, no shortness of breath Gastrointestinal: No new onset incontinence, normal bowel movements reported Genitourinary: No new onset incontinence Musculoskeletal: Low back pain, leg pain Psychiatric: [Normal mood/affect] Neurological: [Denies weakness in extremities], [denies balance issues] Objective:: Physical Exam: General: Alert and oriented x3, no acute distress, pleasant and cooperative Lungs: Respirations even and unlabored, symmetrical chest expansion Eyes: PERRL Musculoskeletal: Flexion and extension of lumbar [spine] somewhat guarded secondary to pain, [antalgic gait noted] positive right leg raise Neurological: Speech clear, no gross sensory deficit Assessment:: Degenerative disc disease of lumbar spine with lumbar radiculopathy symptoms, osteoarthritis right knee, sacroiliitis, right shoulder pain Plan:: Patient is experiencing worsening pain in her low back and legs with limited range of motion. Patient did have a positive right leg raise during today's exam. I have discussed with the patient that she may benefit from repeat lumbar epidural steroid injection. Risk and benefits were discussed with the patient and she would like to proceed forward with this plan of care. Patient does typically get upwards of 70% relief with these injections lasting approximately 3 months. We will schedule the patient for a lumbar epidural steroid injection L4-L5 with fluoroscopy. Patient has been instructed to contact the clinic with any concerns before the next appointment. Dr. Abad has reviewed this note and agrees with this plan of care. This note was dictated using voice recognition software and make contain errors or omissions. [facility] Disclaimer: The information contained in this section may have been updated after the patient was seen, as this information can be updated by other users. Medical History (Updated 08/16/23 @ 20:50 by Susu Zavala APRN) Acute bronchitis Chest pain Sinusitis Family History Other No significant family history Social History Smoking Status: Never smoker alcohol intake: never substance use type: former substance user and opiates current occupational status: employed Travel in the last 8 weeks: None household members: spouse housing: house current occupational exposures/hazards: No caffeine: Yes
[2023-10-01 14:15] VITALS: BP 136/78; PULSE 70; RESP 18; O2SAT 98; BMI 35.9
== END | disposition home or self-care (01) ==
PROVIDERS: PCP Nurse Practitioner Family; Visit Provider Nurse Practitioner Family
DX: M51.16 Intervertebral disc disorders with radiculopathy, lumbar region (principal); M17.11 Unilateral primary osteoarthritis, right knee; M46.1 Sacroiliitis, not elsewhere classified; M25.511 Pain in right shoulder
CPT/HCPCS: 99212; G0463

== ENCOUNTER 2023-10-13 11:15 | Day surgery (SDC) | payer MEDICARE, SELFPAY ==
[2023-10-13 11:30] VITALS: BP 122/69; PULSE 85; RESP 18; TEMP 36.7; O2SAT 98; BMI 37.0
[2023-10-13 11:32] VITALS: BP 126/85; PULSE 61; PULSE 65; RESP 18; O2SAT 96; O2SAT 98
[2023-10-13] MEDS: methylPREDNISolone ACETATE 80MG/ML VIAL 80 MG (11:35)
--- NOTE | 2023-10-13 11:43 | P.PCN_ITS ---
Procedure Date: 10/13/23 Time: 11:30 Anesthesiologist:: Erasmo Barth CRNA Complications:: None Pre-procedure Diagnosis:: Degenerative disc lumbar spine multilevels. Lumbar radiculopathy. Post-procedure Diagnosis:: Same. Indications for Procedure:: Patient is a very pleasant 63-year-old female comes to clinic today for a lumbar epidural steroid injection at L4-5 level. Patient has responded very well to this injection in the past. Patient reports low back pain as well as right hip and leg radicular pain to the foot. Patient denies radicular symptoms on the left. She rates her pain 7/10. Procedure Details:: Procedure: Lumbar epidural steroid injection under fluoroscopy Informed consent was obtained and the risks and benefits of the procedure were explained to the patient. The patient was taken to the procedure room and noninv asive monitors placed, including noninvasive blood pressure cuff and pulse oximeter. The back was viewed using C-arm Fluoroscopy and prepped using Chloraprep as a cleansing solution and the L4-L5 interspace was palpated. Skin and subcutaneous tissues were anesthetized using lidocaine 1.5% and a 25-gauge needle. After this, an 18-gauge Touhy epidural needle was placed into the L4-L5 interspace and advanced using fluoroscopic guidance and loss of resistance to air until the epidural space was encountered. After confirmation of needle placement in the epidural space, with dye, a solution containing normal saline, 3 mL and Depo-Medrol 80 mg were incrementally injected into the lumbar epidural space. The patient tolerated the procedure well with no complications. The patient was observed in the Pain Clinic and then discharged home neurologically intact. Plan and Disposition:: Patient was discharged without incident.
[2023-10-13 11:45] VITALS: BP 145/68; PULSE 53; RESP 18; O2SAT 97
== END 2023-10-13 11:45 | disposition home or self-care (01) ==
PROVIDERS: PCP Nurse Practitioner Family; Visit Provider Nurse Anesthetist, Certified Registered
DX: M51.16 Intervertebral disc disorders with radiculopathy, lumbar region (principal)
CPT/HCPCS: 62323; J1040

== ENCOUNTER → 2023-11-05 14:31 | Outpatient (POV) | payer MEDICARE, SELFPAY ==
[2023-11-05 14:36] VITALS: BP 145/86; PULSE 68; RESP 20; BMI 35.9
--- NOTE | 2023-11-05 15:01 | EXP.PAIN.SOA ---
[facility] Pain Management SOAP Note Subjective:: Patient is a pleasant 63-year-old female who presents today for follow-up of lumbar epidural steroid injection L4-L5 on 10/13/2023. We are currently treating the patient for degenerative disc disease of lumbar spine with lumbar radiculopathy symptoms, osteoarthritis right knee, sacroiliitis, right shoulder pain. Today she rates her pain a 7 out of 10. Patient states she has had at least 90% improvement following this injection and feels like it is still providing additional relief. Patient states that she has been able to increase her activity with decreased pain symptoms and feels overall more functional. Patient is currently managed with diclofenac 75 mg twice a day, gabapentin 100 mg 3 times a day and tramadol 50 mg daily. Patient denies any side effects from this medication. Her Juan Luis has been reviewed and is appropriate. Patient is also prescribed compounded cream. Review of Systems: General: No recent weight changes, no fever, no sleep disturbances Respiratory: No cough, no shortness of air, no recurring pulmonary infections Cardiovascular/peripheral vascular: No chest pain, no palpitations, no edema, no shortness of breath Gastrointestinal: No new onset incontinence, normal bowel movements reported Genitourinary: No new onset incontinence Musculoskeletal: Low back pain Psychiatric: [Normal mood/affect] Neurological: [Denies weakness in extremities], [denies balance issues] Objective:: Physical Exam: General: Alert and oriented x3, no acute distress, pleasant and cooperative Lungs: Respirations even and unlabored, symmetrical chest expansion Eyes: PERRL Musculoskeletal: Flexion and extension of lumbar [spine] somewhat guarded secondary to pain, [antalgic gait noted] Neurological: Speech clear, no gross sensory deficit Assessment:: Degenerative disc disease of lumbar spine with lumbar radiculopathy symptoms, osteoarthritis right knee, sacroiliitis, right shoulder pain Plan:: Patient has had significant improvement following her lumbar epidural and does not require additional injection therapy at this time. I will refill the patient's diclofenac 75 mg twice a day, gabapentin 100 mg 3 times a day and tramadol 50 mg daily and provide a 3-month supply of this medication. Patient will return to clinic in 3 months for reevaluation of symptoms and plan of care. Risks and benefits of the medication have been explained in detail to the patient. The patient does understand the risk of dependence on the medication when given over a prolonged period. Patient has been advised of risks of oversedation with the prescribed medication. Narcan has been offered to the paitent in the event of oversedation. Patient has been advised that a family member should also be educated regarding administration of Narcan. The patient has been advised to consult with his/her primary care provider and pharmacist regarding drug-drug interaction of medications currently prescribed. Patient has been prescribed a controlled substance after being counseled on the medication, medication safety, and possible side effects. Opioid contract was reviewed and signed by the patient, and that they have agreed to all of the terms set forth by our compliance program. Patient has been instructed to contact the clinic with any concerns before the next appointment. Dr. Abad has reviewed this note and agrees with this plan of care. This note was dictated using voice recognition software and make contain errors or omissions. [facility] Disclaimer: The information contained in this section may have been updated after the patient was seen, as this information can be updated by other users. Medical History Sinusitis Acute bronchitis Chest pain Family History Other No significant family history Social History Smoking Status: Never smoker alcohol intake: never substance use type: former substance user and opiates current occupational status: other Travel in the last 8 weeks: None household members: spouse housing: house current occupational exposures/hazards: No caffeine: Yes
== END | disposition home or self-care (01) ==
PROVIDERS: PCP Nurse Practitioner Family; Visit Provider Nurse Practitioner Family
DX: M51.16 Intervertebral disc disorders with radiculopathy, lumbar region (principal); M17.11 Unilateral primary osteoarthritis, right knee; M46.1 Sacroiliitis, not elsewhere classified; M25.511 Pain in right shoulder
CPT/HCPCS: 99212; G0463

== ENCOUNTER 2023-11-30 13:00 | Outpatient (POV) | payer MEDICARE, SELFPAY ==
--- NOTE | 2023-11-30 13:11 | A.OFFVIS_ITS ---
[facility] Pain Management SOAP Note Subjective:: Patient is a pleasant 63-year-old female who presents today for follow-up. We are currently treating the patient for degenerative disc disease of lumbar spine with lumbar radiculopathy symptoms, osteoarthritis right knee, sacroiliitis, right shoulder pain. Today she rates her pain a 4 out of 10. She denies any new trauma or injury. She does state that she still feels like the last injection that was in October is working well. Patient had a lumbar epidural L4-L5 that did provide upwards of 90% relief. She does state that she will still occasionally have pain from time to time and that the weather symptoms can cause worsening symptoms and cold and rainy times. Patient states that her current medication of diclofenac 75 mg a day, gabapentin 100 mg 3 times a day and tramadol 50 mg daily does seem to help keep her symptoms better. Patient is requesting if she can have a little bit more of the overall pain medication because she feels like there. To where she does not get as good coverage. Patient does state that she is trying to stay very active. She states she did just recently go to the tanning bed because the heat does seem to help her overall joint pain. Her Juan Luis has been reviewed and is appropriate. Review of Systems: General: No recent weight changes, no fever, no sleep disturbances Respiratory: No cough, no shortness of air, no recurring pulmonary infections Cardiovascular/peripheral vascular: No chest pain, no palpitations, no edema, no shortness of breath Gastrointestinal: No new onset incontinence, normal bowel movements reported Genitourinary: No new onset incontinence Musculoskeletal: Low back pain Psychiatric: [Normal mood/affect] Neurological: [Denies weakness in extremities], [denies balance issues] Objective:: Physical Exam: General: Alert and oriented x3, no acute distress, pleasant and cooperative Lungs: Respirations even and unlabored, symmetrical chest expansion Eyes: PERRL Musculoskeletal: Flexion and extension of lumbar [spine] somewhat guarded secondary to pain, [antalgic gait noted] Neurological: Speech clear, no gross sensory deficit Assessment:: Degenerative disc disease of lumbar spine with lumbar radiculopathy symptoms, osteoarthritis right knee, sacroiliitis, right shoulder pain Plan:: Patient was just recently given a 3-month supply of her medications however we will send in a change of her tramadol to 50 mg twice a day and provide a 1 month supply of this medication. Patient will come back in 1 month for reevaluation of symptoms and plan of care. Patient has been instructed to contact the clinic with any concerns before the next appointment. Dr. Abad has reviewed this note and agrees with this plan of care. This note was dictated using voice recognition software and make contain errors or omissions. [facility] Disclaimer: The information contained in this section may have been updated after the patient was seen, as this information can be updated by other users. Medical History Sinusitis Acute bronchitis Chest pain Family History Other No significant family history Social History Smoking Status: Never smoker alcohol intake: never substance use type: former substance user and opiates current occupational status: other Travel in the last 8 weeks: None household members: spouse housing: house current occupational exposures/hazards: No caffeine: Yes
[2023-11-30 13:12] VITALS: BP 114/82; PULSE 83; RESP 18; O2SAT 99; BMI 41.5
== END 2023-11-30 23:59 | disposition home or self-care (01) ==
PROVIDERS: PCP Nurse Practitioner Family; Visit Provider Nurse Practitioner Family
DX: M51.16 Intervertebral disc disorders with radiculopathy, lumbar region (principal); M17.11 Unilateral primary osteoarthritis, right knee; M46.1 Sacroiliitis, not elsewhere classified; M25.511 Pain in right shoulder
CPT/HCPCS: 99212; G0463

== ENCOUNTER 2023-12-30 13:32 | Outpatient (POV) | payer MEDICARE, SELFPAY ==
[2023-12-30 14:03] VITALS: BP 147/79; PULSE 69; RESP 18; O2SAT 98; BMI 35.9
--- NOTE | 2023-12-30 15:05 | EXP.PAIN.SOA ---
[facility] Pain Management SOAP Note Subjective:: Patient is a pleasant 63-year-old female who presents today for follow-up. Patient states her pain today is a 3 out of 10. Patient denies any new trauma or injury. Patient at her last visit did have her tramadol increased to twice a day. Patient states that this has significantly helped. Patient does however state that overall she has a lot of soreness here lately and is requesting if we can do a steroid Dosepak for her. Patient did previously have a lumbar epidural that did provide upwards of 90% relief and does seem like it is helping still. Patient did recently have a 3-month supply of her diclofenac 75 mg twice a day, gabapentin 100 mg 3 times a day sent in and does not need refills on these. Patient denies any side effects to her medications her Juan Luis has been reviewed and is appropriate. Review of Systems: General: No recent weight changes, no fever, no sleep disturbances Respiratory: No cough, no shortness of air, no recurring pulmonary infections Cardiovascular/peripheral vascular: No chest pain, no palpitations, no edema, no shortness of breath Gastrointestinal: No new onset incontinence, normal bowel movements reported Genitourinary: No new onset incontinence Musculoskeletal: Low back pain Psychiatric: [Normal mood/affect] Neurological: [Denies weakness in extremities], [denies balance issues] Objective:: Physical Exam: General: Alert and oriented x3, no acute distress, pleasant and cooperative Lungs: Respirations even and unlabored, symmetrical chest expansion Eyes: PERRL Musculoskeletal: Flexion and extension of lumbar [spine] somewhat guarded secondary to pain, [antalgic gait noted] Neurological: Speech clear, no gross sensory deficit Assessment:: Degenerative disc disease of lumbar spine with lumbar radiculopathy symptoms, osteoarthritis right knee, sacroiliitis, right shoulder pain Plan:: I will send in a 5-day dose of prednisone 20 mg twice daily and send in 1 additional month of her tramadol 50 mg twice a day. Patient will return to clinic in 1 month for reevaluation of symptoms and plan of care. Risks and benefits of the medication have been explained in detail to the patient. The patient does understand the risk of dependence on the medication when given over a prolonged period. Patient has been advised of risks of oversedation with the prescribed medication. Narcan has been offered to the paitent in the event of oversedation. Patient has been advised that a family member should also be educated regarding administration of Narcan. The patient has been advised to consult with his/her primary care provider and pharmacist regarding drug-drug interaction of medications currently prescribed. Patient has been prescribed a controlled substance after being counseled on the medication, medication safety, and possible side effects. Opioid contract was reviewed and signed by the patient, and that they have agreed to all of the terms set forth by our compliance program. Patient has been instructed to contact the clinic with any concerns before the next appointment. Dr. Abad has reviewed this note and agrees with this plan of care. This note was dictated using voice recognition software and make contain errors or omissions. [facility] Disclaimer: The information contained in this section may have been updated after the patient was seen, as this information can be updated by other users. Medical History Sinusitis Acute bronchitis Chest pain Family History Other No significant family history Social History Smoking Status: Never smoker alcohol intake: never substance use type: former substance user and opiates current occupational status: other Travel in the last 8 weeks: None household members: spouse housing: house current occupational exposures/hazards: No caffeine: Yes
== END 2023-12-30 23:59 | disposition home or self-care (01) ==
PROVIDERS: PCP Nurse Practitioner Family; Visit Provider Nurse Practitioner Family
DX: M51.16 Intervertebral disc disorders with radiculopathy, lumbar region (principal); M17.11 Unilateral primary osteoarthritis, right knee; M46.1 Sacroiliitis, not elsewhere classified; M25.511 Pain in right shoulder
CPT/HCPCS: 99212; G0463

== ENCOUNTER 2024-02-04 14:19 | Outpatient (POV) | payer MEDICARE, SELFPAY ==
[2024-02-04 14:24] VITALS: BP 123/63; PULSE 60; RESP 16; O2SAT 97; BMI 39.4
--- NOTE | 2024-02-04 14:36 | A.OFFVIS_ITS ---
[facility] Pain Management SOAP Note Subjective:: Patient is a pleasant 63-year-old female who presents today for medication refill and follow-up. Today she rates her pain a 3 out of 10. Patient denies any new trauma or injury. She does state that overall she is still doing well and does not feel like she needs any repeat lumbar epidurals. Her last 1 gave 90% relief and is still helping. Patient is currently managed with diclofenac 75 mg twice a day, gabapentin 100 mg 3 times a day and tramadol 50 mg twice a day. She denies any side effects from this medication. She does state that this combination seems to be working well for her. Her Juan Luis has been reviewed and is appropriate. Review of Systems: General: No recent weight changes, no fever, no sleep disturbances Respiratory: No cough, no shortness of air, no recurring pulmonary infections Cardiovascular/peripheral vascular: No chest pain, no palpitations, no edema, no shortness of breath Gastrointestinal: No new onset incontinence, normal bowel movements reported Genitourinary: No new onset incontinence Musculoskeletal: Low back pain Psychiatric: [Normal mood/affect] Neurological: [Denies weakness in extremities], [denies balance issues] Objective:: Physical Exam: General: Alert and oriented x3, no acute distress, pleasant and cooperative Lungs: Respirations even and unlabored, symmetrical chest expansion Eyes: PERRL Musculoskeletal: Flexion and extension of lumbar [spine] somewhat guarded secondary to pain, [antalgic gait noted] Neurological: Speech clear, no gross sensory deficit Assessment:: Degenerative disc disease of lumbar spine with lumbar radiculopathy symptoms, sacroiliitis, right shoulder pain, osteoarthritis right knee Plan:: I will refill the patient's diclofenac, gabapentin and tramadol provide a 3- month supply of these medications. Patient will return to clinic in 3 months for reevaluation of symptoms and plan of care. Risks and benefits of the medication have been explained in detail to the patient. The patient does understand the risk of dependence on the medication when given over a prolonged period. Patient has been advised of risks of oversedation with the prescribed me dication. Narcan has been offered to the paitent in the event of oversedation. Patient has been advised that a family member should also be educated regarding administration of Narcan. The patient has been advised to consult with his/her primary care provider and pharmacist regarding drug-drug interaction of medications currently prescribed. Patient has been prescribed a controlled substance after being counseled on the medication, medication safety, and possible side effects. Opioid contract was reviewed and signed by the patient, and that they have agreed to all of the terms set forth by our compliance program. Patient has been instructed to contact the clinic with any concerns before the next appointment. Dr. Abad has reviewed this note and agrees with this plan of care. This note was dictated using voice recognition software and make contain errors or omissions. [facility] Disclaimer: The information contained in this section may have been updated after the patient was seen, as this information can be updated by other users. Medical History Sinusitis Acute bronchitis Chest pain Family History Other No significant family history Social History Smoking Status: Never smoker alcohol intake: never substance use type: former substance user and opiates current occupational status: employed Travel in the last 8 weeks: None household members: spouse housing: house current occupational exposures/hazards: No caffeine: Yes
== END 2024-02-04 23:59 | disposition home or self-care (01) ==
PROVIDERS: PCP Nurse Practitioner Family; Visit Provider Nurse Practitioner Family
DX: M51.16 Intervertebral disc disorders with radiculopathy, lumbar region (principal); M46.1 Sacroiliitis, not elsewhere classified; M25.511 Pain in right shoulder; M17.11 Unilateral primary osteoarthritis, right knee
CPT/HCPCS: 99212; G0463

== ENCOUNTER 2024-02-16 10:24 | Outpatient (CLI) | payer MEDICARE, SELFPAY ==
[2024-02-16 10:50] LABS: Basophils % 0.3 % (0.1-2.0); Eosinophils % 0.7 % (0.1-12.0); Hematocrit 42.7 % (37.0-47.0); Hemoglobin 14.2 g/dL (12.2-16.2); Mean Corpuscular HGB Conc 33.3 g/dL (31.8-35.4); Mean Corpuscular Hemoglobin 31.6 pg (27.0-31.2); Mean Platelet Volume 8.1 fl (7.4-10.4); Monocytes # 0.1 K/mm3 (0.1-1.0); Monocytes % 1.5 % (1.7-9.3); Neutrophils % 81.6 % (37.0-80.0); Platelet Count 268 K/mm3 (142-424); Red Blood Count 4.49 M/mm3 (4.20-5.40); Red Cell Distribution Width 13.9 % (11.5-17.5); White Blood Count 6.1 K/mm3 (4.8-10.8)
[2024-02-16 11:47] LABS: Chloride 105 mmol/L (98-107); Potassium 4.6 mmoL/L (3.5-5.1); Sodium 137 mmol/L (136-145)
[2024-02-16 11:50] LABS: Alanine Aminotransferase 31 U/L (12-78); Albumin Level 4.5 g/dl (3.5-5.0); Albumin/Globulin Ratio 1.7 (1.1-1.8); Alkaline Phosphatase 94 U/L (38-126); Anion Gap 12.6 mEq/L (5-15); Aspartate Amino Transferase 36 U/L (14-36); Bilirubin,Total 0.5 mg/dl (0.2-1.3); Blood Urea Nitrogen 33 mg/dl (7-17); Carbon Dioxide 24 mmol/L (22.0-30.0); Cholesterol 180 mg/dl (140-200); Estimated Glomerular Filt Rate 63 ml/min (>60); GFR (African American) 76 ML/MIN (>60); Globulin 2.6 g/dL (1.3-3.2); Hemoglobin A1C 5.3 % (4.0-6.0); Total Protein,Serum 7.1 g/dl (6.3-8.2); Triglycerides 46 mg/dl (30-150); VLDL Cholesterol 9 mg/dL (0-40)
[2024-02-16 11:51] LABS: Calcium 9.8 mg/dl (8.4-10.2); Chol/HDL Ratio 2.6 (1-3.5); Glucose 105 mg/dl (74-100); HDL Cholesterol 69 mg/dl (40-60)
[2024-02-16 12:27] LABS: Direct LDL Cholesterol 79.25 mg/dL (100-129)
[2024-02-16 13:15] LABS: Vitamin B12 375 pg/mL (239-931)
== END 2024-02-16 23:59 | disposition home or self-care (01) ==
LOC: LAB 10:27
PROVIDERS: PCP Nurse Practitioner Family; Visit Provider Nurse Practitioner Family
DX: E78.5 Hyperlipidemia, unspecified (principal); R53.83 Other fatigue; E55.9 Vitamin D deficiency, unspecified; R73.09 Other abnormal glucose; Z68.37 Body mass index [BMI] 37.0-37.9, adult
CPT/HCPCS: 36415; 80050; 80053; 80061; 82306; 82607; 83036; 84443; 85025

== ENCOUNTER 2024-04-20 14:54 | Emergency (ER) | payer MEDICARE, SELFPAY ==
[2024-04-20 14:56] VITALS: BP 126/71; PULSE 83; RESP 16; TEMP 36.8; O2SAT 97; BMI 37.0
[2024-04-20 15:55] VITALS: BP 160/85; PULSE 78; RESP 16; TEMP 36.8; O2SAT 94
--- NOTE | 2024-04-20 17:44 | HMH.EDGENADL ---
Discharge Plan Disposition Patient Disposition: Home, Self-Care Prescriptions Prescriptions: [place] Ahes-Yoqvaw-Lzyh Mite Spr 0.5 % aerosol,spray 1 spray miscellaneous NEEDED PRN (Reason: bugs) Qty: 142 0RF permethrin 5 % cream 1 applic topical Q14D Qty: 60 1RF Rx Instructions: apply second treatment 14 days after first treatment if live lice remain No Action lisinopril 5 mg tablet 5 mg PO DAILY Qty: 90 2RF omeprazole 20 mg capsule,delayed release(DR/EC) See Rx Instructions .ROUTE .COMPLEX Qty: 90 2RF Dose Instruction: Take 1 capsule by mouth once daily Rx Instructions: Take 1 capsule by mouth once daily albuterol sulfate [Ventolin HFA] 90 mcg/actuation HFA aerosol inhaler 2 puff inhalation Q6H PRN (Reason: shortness of breath or wheezing) Qty: 6.7 2RF naproxen 500 MG tablet 500 mg PO BID Qty: 0 0RF furosemide 20 mg tablet See Rx Instructions .ROUTE .COMPLEX Rx Instructions: TAKE 1 TABLET BY MOUTH ONCE DAILY FOR EDEMA tramadol 50 mg tablet 50 mg PO BID Qty: 60 2RF diclofenac sodium 75 mg tablet,delayed release (DR/EC) 75 mg PO BID Qty: 60 2RF gabapentin 100 mg capsule 100 mg PO TID Qty: 90 2RF Referrals Follow up/Referrals: Ronal Duong APRN [Primary Care Provider] - See instructions Activity Restrictions/Add. Instructions Additional Instructions/Restrictions: Call your family doctor to establish care for this visit to the emergency department and schedule follow-up within 48 hours to ensure improvement. If you have any worsening of your condition or any other concerning signs or symptoms, return to the emergency department or your primary care doctor for further evaluation. Permethrin as directed. Bedbug spray has also been sent to the pharmacy in case you spot any bugs. Permethrin: Apply to all areas of the body from the neck to soles of feet (30 g for average adult); leave on for 8 to 14 hours before removing by washing (shower or bath). For older adults, also apply on the hairline, neck, scalp, samaritan, and forehead. One application is generally curative; may repeat if living mites are observed 14 days after first treatment Clinical Impressions Clinical Impression: Bug bite Instructions Patient Instructions: DI for Skin Abscess Print Language Print Language: Belarusian Discharge ED Provider: Rodrigo Fitzgerald General Adult HPI General Chief complaint: Skin/Abscess/Foreign Body Stated complaint: itching rash on body Time Seen by Provider: 04/20/24 15:22 Mode of Arrival: Ambulatory Source of Information: Patient Limitations: No Limitations Description of Symptoms (Recalled from ER Triage Doc. by RN): pt presents to ED with c/o itching. pt reports approx 1.5 weeks ago she weedeated her yard and since then she has had various hives popping up all over her body. pt reports she has used OTC medications but they have not been helping. History of Present Illness HPI narrative: Please note that above description of symptoms, in this electronic medical record under categorization of recalled from ER triage doctor by RN are reflective of an initial nursing assessment, however, is not reflective of my full history and physical exam that was personally taken and clarified. Consequentially, this preceding description of symptoms, which may include the patient's categorized chief complaint in the EMR, do not reflect my personal clinical impression, and the ultimate description of history of present illness and patient stated complaints should be deferred to this section of the note. Unless stated otherwise or congruent with this section of the note, additional signs, symptoms, or incongruence should be interpreted as inaccurate with my clinical impression. Related Data Home Medications ?Medication ?Instructions ?Recorded ?Confirmed furosemide 20 mg tablet See Rx Instructions .Route 12/04/22 03/22/24 .COMPLEX Fluid Previous Rx's ?Medication ?Instructions ?Recorded naproxen 500 mg tablet 500 mg PO BID Pain #0 tabs 04/07/22 omeprazole 20 mg capsule,delayed See Rx Instructions .Route 01/30/24 release .COMPLEX #90 caps diclofenac sodium 75 mg 75 mg PO BID #60 tabs 02/04/24 tablet,delayed release gabapentin 100 mg capsule 100 mg PO TID . #90 caps 02/04/24 tramadol 50 mg tablet 50 mg PO BID #60 tabs 02/04/24 albuterol sulfate 90 mcg/actuation 2 puff inhalation Q6H PRN 02/15/24 aerosol inhaler (Ventolin HFA) shortness of breath or wheezing #6.7 grams lisinopril 5 mg tablet 5 mg PO DAILY #90 tabs 03/22/24 permethrin 0.5 % spray (Home 1 spray miscellaneous NEEDED 04/20/24 Abtw-Kityio-Exwu Mite [place]) PRN bugs #142 grams permethrin 5 % topical cream 1 applic topical Q14D 2 doses #60 04/20/24 grams Allergies Allergy/AdvReac Type Severity Reaction Status Date / Time No Known Allergies Allergy Verified 03/22/24 15:04 [facility] Disclaimer: The information contained in this section may have been updated after the patient was seen, as this information can be updated by other users. Medical History Sinusitis Acute bronchitis Chest pain Family History Other No significant family history Social History Smoking Status: Never smoker alcohol intake: never substance use type: former substance user and opiates current occupational status: employed Travel in the last 8 weeks: None household members: spouse housing: house current occupational exposures/hazards: No caffeine: Yes ROS Obtained: Yes All systems reviewed & no additional complaints except as documented Physical Exam General General appearance: alert Head Head exam: atraumatic and normocephalic Eye Eye exam: Present normal appearance, PERRL and EOMI Neck Neck exam: Present normal inspection, full ROM and trachea midline Respiratory Respiratory exam: Absent respiratory distress, wheezes, stridor, accessory muscle use or prolonged expiratory phase Cardiovascular Cardiovascular exam: Present other (Pulses equal symmetric in upper and lower extremities) Abdominal Exam Abdominal exam: Present soft; Absent distention, tenderness or pulsatile mass Extremities Exam Extremities exam: Absent edema Neurological Exam Neurological exam: Present alert, oriented X3 and CN II-XII intact; Absent motor sensory deficit Skin Skin exam: Present warm, dry and rash (Scattered bug bites on neck, chest, abdomen, back, trunk, bilateral upper and lower extremities. Not in webspaces. Usually in groups of 2-3. No visible bugs. Some associated excoriations and urticaria); Absent diaphoresis or erythema Medical Decision Making Medical Records Medical records reviewed: Yes I reviewed the patient's medical records. Juan Luis Inquiry Pt receiving controlled substance: No Juan Luis was queried for this patient: No Vital Signs: 04/20/24 14:56 04/20/24 15:55 Temperature 98.3 F 98.3 F Temperature Source Oral Pulse Rate 78 Pulse Rate [Left Radial] 83 Respiratory Rate 16 16 Blood Pressure 160/85 H Blood Pressure [Right Arm] 126/71 Blood Pressure Mean [Right Arm] 89 02 Sat by Pulse Oximetry 97 Oxygen Delivery Method Room Air Room Air Medical Decision Narrative: 63-year-old female no relevant medical history presenting with bug bites. Patient states that she has been getting these bug bites pretty consistently for the past 7 days. Initially started on her lower extremities. She thought it was related to when she was weed whacking in the backyard. Has had chiggers in the past, thought this was related, but they never got this bad. Does have a dog in the house, dog does not have fleas and is on antiflea medication. sleeps in the same bed and room with her, does not have bug bites that she knows of. States that she is getting more more of these, they are itchy, nontender, occurring in groups. States that she tried washing her bed clothes, vacuuming, no relief. Coming in for further evaluation. She has not seen her family doctor for this. History was obtained via conversation with patient. On arrival, patient hemodynamically stable, alert, oriented x4, appropriate, GCS 15, moving all extremities spontaneously, pupils equal and reactive to light. Full physical exam performed and significant for Scattered bug bites on neck, chest, abdomen, back, trunk, bilateral upper and lower extremities. Not in webspaces. Usually in groups of 2-3. No visible bugs. Some associated excoriations and urticaria. Differential includes bedbugs, scabies, chiggers, mites, spider bites, skin picking, among others. Because patient well-appearing, no evidence of cellulitis, or any other concerning findings, not actively in acute distress, or acute bleeding, hematologic workup was considered, but not deemed necessary. I feel is most consistent with bug bites versus some sort of skin mite, versus fleas. Given patient presentation, workup, history, this most likely represents bug bites. Because patient at baseline without signs or symptoms of clinical decompensation, deemed appropriate for discharge. Results were relayed to patient who voiced understanding and were agreeable to outpatient management and follow up. I discussed my clinical impression with patient and answered all questions. At this time, the evidence for any other entities in the differential is insufficient to warrant any further testing or ED observation. This was explained as well. Advisory was given that persistent or worsening symptoms require further evaluation. I confirmed the understanding of this discussion. Assistant Purchasing Manager disclaimer Much of this encounter note is an electronic glass loading equipment tender spoken language to printed text. Electronic glass loading equipment tender of the spoken language may permit errors. Although I have reviewed the note, some errors may still exist. Critical Care Critical Care Time Critical Care Time: No
== END 2024-04-20 15:55 | disposition home or self-care (01) ==
PROVIDERS: Emergency Provider Emergency Medicine; PCP Nurse Practitioner Family
DX: S40.861A Insect bite (nonvenomous) of right upper arm, initial encounter (principal); S40.862A Insect bite (nonvenomous) of left upper arm, initial encounter; S80.861A Insect bite (nonvenomous), right lower leg, initial encounter; S80.862A Insect bite (nonvenomous), left lower leg, initial encounter; L50.9 Urticaria, unspecified; W57.XXXA Bitten or stung by nonvenomous insect and other nonvenomous arthropods, initial encounter
CPT/HCPCS: 99283

== ENCOUNTER 2024-05-05 12:15 | Emergency (ER) | payer MEDICARE, SELFPAY ==
[2024-05-05 12:16] VITALS: BP 148/74; PULSE 67; RESP 18; TEMP 36.6; O2SAT 97; BMI 36.6
--- NOTE | 2024-05-05 12:44 | HMH.EDGENADL ---
Discharge Plan Disposition Patient Disposition: Home, Self-Care Prescriptions Prescriptions: New prednisone 20 mg tablet 40 mg PO DAILY 5 Days Qty: 10 0RF lidocaine 5 % adhesive patch,medicated 1 patch topical DAILY Qty: 30 0RF Rx Instructions: leave on most painful area for up to 12 hrs methocarbamol 750 mg tablet 1,500 mg PO TID 5 Days Qty: 30 0RF No Action lisinopril 5 mg tablet 5 mg PO DAILY Qty: 90 2RF diclofenac sodium 75 mg tablet,delayed release (DR/EC) 75 mg PO BID omeprazole 20 mg capsule,delayed release(DR/EC) See Rx Instructions .ROUTE .COMPLEX Qty: 90 2RF Dose Instruction: Take 1 capsule by mouth once daily Rx Instructions: Take 1 capsule by mouth once daily albuterol sulfate [Ventolin HFA] 90 mcg/actuation HFA aerosol inhaler 2 puff inhalation Q6H PRN (Reason: shortness of breath or wheezing) Qty: 6.7 2RF Home Egzn-Lgzpgv-Kyew Mite Spr 0.5 % aerosol,spray 1 spray miscellaneous NEEDED PRN (Reason: bugs) Qty: 142 0RF permethrin 5 % cream 1 applic topical Q14D Qty: 60 1RF Rx Instructions: apply second treatment 14 days after first treatment if live lice remain naproxen 500 MG tablet 500 mg PO BID Qty: 0 0RF furosemide 20 mg tablet See Rx Instructions .ROUTE .COMPLEX Rx Instructions: TAKE 1 TABLET BY MOUTH ONCE DAILY FOR EDEMA tramadol 50 mg tablet 50 mg PO BID Qty: 60 2RF gabapentin 100 mg capsule 100 mg PO TID Qty: 90 2RF Referrals Follow up/Referrals: Provider,Referral, MD [Referring] - See instructions Activity Restrictions/Add. Instructions Additional Instructions/Restrictions: Call your family doctor to establish care for this visit to the emergency department and schedule follow-up within 48 hours to ensure improvement. If you have any worsening of your condition or any other concerning signs or symptoms, return to the emergency department or your primary care doctor for further evaluation. Clinical Impressions Clinical Impression: Sciatica of right side Instructions Patient Instructions: DI for Low Back Pain Print Language Print Language: Slovenian Discharge ED Provider: Rodrigo Fitzgerald General Adult [facility] General Chief complaint: Back Pain/Injury Stated complaint: back pain Time Seen by Provider: 05/05/24 12:20 Mode of Arrival: Ambulatory Source of Information: Patient Limitations: No Limitations Description of Symptoms (Recalled from ER Triage Doc. by RN): chronic backpain which has worsened over the last few days History of Present Illness HPI narrative: Please note that above description of symptoms, in this electronic medical record under categorization of recalled from ER triage doctor by RN are reflective of an initial nursing assessment, however, is not reflective of my full history and physical exam that was personally taken and clarified. Consequentially, this preceding description of symptoms, which may include the patient's categorized chief complaint in the EMR, do not reflect my personal clinical impression, and the ultimate description of history of present illness and patient stated complaints should be deferred to this section of the note. Unless stated otherwise or congruent with this section of the note, additional signs, symptoms, or incongruence should be interpreted as inaccurate with my clinical impression. Related Data Home Medications ?Medication ?Instructions ?Recorded ?Confirmed furosemide 20 mg tablet See Rx Instructions .Route 12/04/22 04/26/24 .COMPLEX Fluid diclofenac sodium 75 mg 75 mg PO BID 04/26/24 tablet,delayed release Previous Rx's ?Medication ?Instructions ?Recorded naproxen 500 mg tablet 500 mg PO BID Pain #0 tabs 04/07/22 omeprazole 20 mg capsule,delayed See Rx Instructions .Route 01/30/24 release .COMPLEX #90 caps gabapentin 100 mg capsule 100 mg PO TID . #90 caps 02/04/24 tramadol 50 mg tablet 50 mg PO BID #60 tabs 02/04/24 albuterol sulfate 90 mcg/actuation 2 puff inhalation Q6H PRN 02/15/24 aerosol inhaler (Ventolin HFA) shortness of breath or wheezing #6.7 grams lisinopril 5 mg tablet 5 mg PO DAILY #90 tabs 03/22/24 permethrin 0.5 % spray (Home 1 spray miscellaneous NEEDED 04/20/24 Blfx-Svgswp-Qgpw Mite [place]) PRN bugs #142 grams permethrin 5 % topical cream 1 applic topical Q14D 2 doses #60 04/20/24 grams lidocaine 5 % topical patch 1 patch topical DAILY #30 ea 05/05/24 methocarbamol 750 mg tablet 1,500 mg (2 x 750 mg) PO TID 5 05/05/24 days #30 tabs prednisone 20 mg tablet 40 mg (2 x 20 mg) PO DAILY 5 days 05/05/24 #10 tabs Allergies Allergy/AdvReac Type Severity Reaction Status Date / Time No Known Allergies Allergy Verified 04/26/24 14:04 [facility] Disclaimer: The information contained in this section may have been updated after the patient was seen, as this information can be updated by other users. Medical History Sinusitis Acute bronchitis Chest pain Family History Other No significant family history Social History Smoking Status: Never smoker alcohol intake: never substance use type: former substance user and opiates current occupational status: employed Travel in the last 8 weeks: None household members: spouse housing: house current occupational exposures/hazards: No caffeine: Yes ROS Obtained: Yes All systems reviewed & no additional complaints except as documented Physical Exam General General appearance: alert Head Head exam: atraumatic and normocephalic Eye Eye exam: Present normal appearance, PERRL and EOMI Neck Neck exam: Present normal inspection, full ROM and trachea midline Respiratory Respiratory exam: Absent respiratory distress, wheezes, stridor, accessory muscle use or prolonged expiratory phase Cardiovascular Cardiovascular exam: Present other (Pulses equal symmetric in upper and lower extremities) Abdominal Exam Abdominal exam: Present soft; Absent distention, tenderness or pulsatile mass Extremities Exam Extremities exam: Absent edema Neurological Exam Neurological exam: Present alert, oriented X3 and CN II-XII intact; Absent motor sensory deficit Skin Skin exam: Present warm and dry; Absent diaphoresis or erythema Medical Decision Making Medical Records Medical records reviewed: Yes I reviewed the patient's medical records. Juan Luis Inquiry Pt receiving controlled substance: No Juan Luis was queried for this patient: No Vital Signs: 05/05/24 12:16 Temperature 98 F Temperature Source Oral Pulse Rate [Right] 67 Respiratory Rate 18 Blood Pressure [Right Arm] 148/74 H Blood Pressure Mean [Right Arm] 98 02 Sat by Pulse Oximetry 97 Orders (Tests/Meds): ED MEDICATIONS Discontinued Medications Generic Name Dose Route Start Last Admin Trade Name Freq PRN Reason Stop Dose Admin Lidocaine 1 each 05/05/24 12:34 05/05/24 12:49 Lidocaine 5% Transdermal Patch TP 05/05/24 12:35 1 each ONCE ONE Administration Methocarbamol 750 mg 05/05/24 12:34 05/05/24 12:49 Methocarbamol 500mg Tablet PO 05/05/24 12:35 750 mg ONCE ONE Administration Prednisone 40 mg 05/05/24 12:34 05/05/24 12:49 Prednisone 20mg Tab PO 05/05/24 12:35 40 mg ONCE ONE Administration Medical Decision Narrative: This is a 63-year-old female history of chronic back pain presenting with back pain. Patient states that it started yesterday, has been progressive since that time. Midline radiates to her right hip and down her right leg. Feels just like her previous sciatica. No neurologic deficits other than tingling on the outside of her leg. No bowel or bladder dysfunction, saddle anesthesia, weakness, etc. Try to get into see her pain doctor today, was unable to, so came to the emergency department for further evaluation. On arrival, very stable. History obtained with patient. Neurologically intact lower extremities. Differential includes sciatic nerve pain, disc herniation, among others. Because patient without red flag signs or symptoms, ambulatory without issue, well-appearing, conservative measures were given. Prednisone, Robaxin, lidocaine patches for home-going. Because patient at baseline without signs or symptoms of clinical decompensation, deemed appropriate for discharge. Results were relayed to patient who voiced understanding and were agreeable to outpatient management and follow up. I discussed my clinical impression with patient and answered all questions. At this time, the evidence for any other entities in the differential is insufficient to warrant any further testing or ED observation. This was explained as well. Advisory was given that persistent or worsening symptoms require further evaluation. I confirmed the understanding of this discussion. Kicking Machine Operator disclaimer Much of this encounter note is an electronic tubing mill operator spoken language to printed text. Electronic tubing mill operator of the spoken language may permit errors. Although I have reviewed the note, some errors may still exist. Critical Care Critical Care Time Critical Care Time: No
[2024-05-05] MEDS: METHOCARBAMOL 500MG TABLET 750 MG PO (12:49)
[2024-05-05] MEDS: predniSONE 20MG TAB 40 MG PO (12:49)
[2024-05-05] MEDS: LIDOCAINE 5% TRANSDERMAL PATCH 1 EACH TP (12:49)
[2024-05-05 12:58] VITALS: BP 157/86; PULSE 61; RESP 19; TEMP 36.6; O2SAT 99
== END 2024-05-05 12:58 | disposition home or self-care (01) ==
PROVIDERS: Emergency Provider Emergency Medicine; PCP Nurse Practitioner Family
DX: M54.41 Lumbago with sciatica, right side (principal)
CPT/HCPCS: 99283

== ENCOUNTER 2024-05-26 13:04 | Outpatient (POV) | payer MEDICARE, SELFPAY ==
--- NOTE | 2024-05-26 13:29 | EXP.PAIN.SOA ---
[facility] Disclaimer: The information contained in this section may have been updated after the patient was seen, as this information can be updated by other users. Medical History Sinusitis Acute bronchitis Chest pain Family History Other No significant family history Social History Smoking Status: Never smoker alcohol intake: never substance use type: former substance user and opiates current occupational status: employed Travel in the last 8 weeks: None household members: spouse housing: house current occupational exposures/hazards: No caffeine: Yes PM Subjective & Objective Subjective Subjective:: Patient is a pleasant 63-year-old female who presents today for worsening pain and medication refill. Today she rates her pain a 9 out of 10. Patient denies any new trauma or injury. She does state that she has been experiencing much worse pain throughout her low back that does radiate down her entire right extremity. Patient denies any symptoms into the right. She does state it is severe and interferes with her ability perform activities of daily living such as cooking or cleaning or even simple ambulation. Patient states that she has not slept for days due to the worsening pain. Patient is currently managed with diclofenac 75 mg twice a day, gabapentin 100 mg 3 times a day and tramadol 50 mg twice a day. She denies any side effects from this medication however states that the tramadol is no different than taking an ibuprofen and does not do anything for her. She states the pain was so severe that she ended up having to go to the ER and did get some lidocaine patches and muscle relaxers that did help some. Patient does state that her primary care is trying to get updated imaging done. Her Juan Luis has been reviewed and is appropriate. Review of Systems: General: No recent weight changes, no fever, no sleep disturbances Respiratory: No cough, no shortness of air, no recurring pulmonary infections Cardiovascular/peripheral vascular: No chest pain, no palpitations, no edema, no shortness of breath Gastrointestinal: No new onset incontinence, normal bowel movements reported Genitourinary: No new onset incontinence Musculoskeletal: Low back pain, right leg numbness tingling Psychiatric: [Normal mood/affect] Neurological: [Denies weakness in extremities], [denies balance issues] Pain at rest (0-10 scale): 9 Objective Objective:: Physical Exam: General: Alert and oriented x3, no acute distress, pleasant and cooperative Lungs: Respirations even and unlabored, symmetrical chest expansion Eyes: PERRL Musculoskeletal: Flexion and extension of lumbar [spine] somewhat guarded secondary to pain, [antalgic gait noted] positive right leg raise with decreased sensation to light touch and decreased reflexes Neurological: Speech clear, no gross sensory deficit Has patient had previous pain injection?: No Conservative treatment options previously tried: Home exercise plan Length of treatment: Longer than 6 weeks Meds Home Medications and Allergies Home Medications ?Medication ?Instructions ?Recorded ?Confirmed ?Type naproxen 500 mg tablet 500 mg PO BID Pain #0 tabs 04/07/22 05/17/24 Rx furosemide 20 mg tablet See Rx Instructions .Route 12/04/22 05/17/24 History .COMPLEX Fluid omeprazole 20 mg capsule,delayed See Rx Instructions .Route 01/30/24 05/17/24 Rx release .COMPLEX #90 caps gabapentin 100 mg capsule 100 mg PO TID . #90 caps 02/04/24 05/17/24 Rx tramadol 50 mg tablet 50 mg PO BID #60 tabs 02/04/24 05/17/24 Rx albuterol sulfate 90 mcg/actuation 2 puff inhalation Q6H PRN 02/15/24 05/17/24 Rx aerosol inhaler (Ventolin HFA) shortness of breath or wheezing #6.7 grams lisinopril 5 mg tablet 5 mg PO DAILY #90 tabs 03/22/24 05/17/24 Rx diclofenac sodium 75 mg 75 mg PO BID 04/26/24 05/17/24 History tablet,delayed release lidocaine 5 % topical patch 1 patch topical DAILY #30 ea 05/05/24 05/17/24 Rx methocarbamol 750 mg tablet 1,500 mg (2 x 750 mg) PO TID 5 05/05/24 05/17/24 Rx days #30 tabs gabapentin 100 mg capsule 100 mg PO TID #90 caps 05/25/24 Rx New Prescriptions to Start Prescriptions: Allergies Allergy/AdvReac Type Severity Reaction Status Date / Time No Known Allergies Allergy Verified 05/17/24 10:31 Assessment and Plan *Assessment and plan (1) Lumbar radiculopathy: Status: Chronic Category: Medical Code(s): M54.16 - Radiculopathy, lumbar region (2) Degenerative joint disease (DJD) of lumbar spine: Status: Chronic Qualifiers: Spinal osteoarthritis complication: with radiculopathy Qualified Code(s): M47.26 - Other spondylosis with radiculopathy, lumbar region Category: Medical Code(s): M47.816 - Spondylosis without myelopathy or radiculopathy, lumbar region (3) Spinal stenosis of lumbar region: Status: Acute Category: Medical Code(s): M48.061 - Spinal stenosis, lumbar region without neurogenic claudication Plan Patient is experiencing worsening pain throughout her low back with radiating numbness and tingling down into her right extremity pain. Patient did have limited range of motion of her lumbar spine with a positive right leg raise and decreased sensation to light touch and decreased reflexes. I have discussed with the patient that she may benefit from a right transforaminal epidural steroid injection. Risk and benefits were discussed with patient and she would like to proceed forward with this plan of care. Patient has tried and failed conservative therapy including continued at home stretching exercise for longer than 12 weeks. I will refill the patient's diclofenac, gabapentin and change her tramadol to [place] 5 mg twice daily. Patient will be scheduled for a right transforaminal epidural steroid injection L4-L5 and L5-S1. Patient has tried epidurals in the past and has gotten on average 60% or more relief that does typically last for several months (more than 3). Risks and benefits of the medication have been explained in detail to the patient. The patient does understand the risk of dependence on the medication when given over a prolonged period. Patient has been advised of risks of oversedation with the prescribed medication. Narcan has been offered to the paitent in the event of oversedation. Patient has been advised that a family member should also be educated regarding administration of Narcan. The patient has been advised to consult with his/her primary care provider and pharmacist regarding drug-drug interaction of medications currently prescribed. Patient has been prescribed a controlled substance after being counseled on the medication, medication safety, and possible side effects. Opioid contract was reviewed and signed by the patient, and that they have agreed to all of the terms set forth by our compliance program. Patient has been instructed to contact the clinic with any concerns before the next appointment. Dr. Abad has reviewed this note and agrees with this plan of care. This note was dictated using voice recognition software and make contain errors or omissions. All injections are used with Lidocaine or Bupivacaine and Depo Medrol.
[2024-05-26 13:31] VITALS: BP 173/70; PULSE 67; RESP 18; O2SAT 98; BMI 35.6
== END 2024-05-26 23:59 | disposition home or self-care (01) ==
PROVIDERS: PCP Nurse Practitioner Family; Visit Provider Nurse Practitioner Family
DX: M47.26 Other spondylosis with radiculopathy, lumbar region; M48.061 Spinal stenosis, lumbar region without neurogenic claudication; Z73.89 Other problems related to life management difficulty
CPT/HCPCS: 99212; G0463

== ENCOUNTER 2024-06-13 13:53 | Outpatient (POV) | payer MEDICARE, SELFPAY ==
[2024-06-13 15:27] VITALS: BP 157/87; PULSE 92; RESP 18; O2SAT 96; BMI 35.9
--- NOTE | 2024-06-13 16:47 | EXP.PAIN.SOA ---
[facility] Disclaimer: The information contained in this section may have been updated after the patient was seen, as this information can be updated by other users. Medical History Sinusitis Acute bronchitis Chest pain Family History Other No significant family history Social History Smoking Status: Never smoker alcohol intake: never substance use type: former substance user and opiates current occupational status: employed Travel in the last 8 weeks: None household members: spouse housing: house current occupational exposures/hazards: No caffeine: Yes PM Subjective & Objective Subjective Subjective:: Patient is a pleasant 63-year-old female who presents today for follow-up. Today she rates her pain a 7 out of 10. Patient denies any new trauma or injury. She does state that she is having worsening pain still along her low back with radiating symptoms down her entire right extremity however is complaining significantly of right knee pain. Patient has had injections in the past for her knee that did provide significant improvement. Patient is scheduled for a right transforaminal injection tomorrow. Patient at her last visit was sent in a 2-week dose of [place] 5 mg twice a day. Patient does state that this did help and is requesting refills. Her Juan Luis has been reviewed and is appropriate. Review of Systems: General: No recent weight changes, no fever, no sleep disturbances Respiratory: No cough, no shortness of air, no recurring pulmonary infections Cardiovascular/peripheral vascular: No chest pain, no palpitations, no edema, no shortness of breath Gastrointestinal: No new onset incontinence, normal bowel movements reported Genitourinary: No new onset incontinence Musculoskeletal: Low back pain, right knee pain Psychiatric: [Normal mood/affect] Neurological: [Denies weakness in extremities], [denies balance issues] Pain at rest (0-10 scale): 7 Objective Objective:: Physical Exam: General: Alert and oriented x3, no acute distress, pleasant and cooperative Lungs: Respirations even and unlabored, symmetrical chest expansion Eyes: PERRL Musculoskeletal: Flexion and extension of right knee somewhat guarded secondary to pain, [antalgic gait noted] Neurological: Speech clear, no gross sensory deficit Has patient had previous pain injection?: No Conservative treatment options previously tried: Home exercise plan Length of treatment: Longer than 12 weeks Meds Home Medications and Allergies Home Medications ?Medication ?Instructions ?Recorded ?Confirmed ?Type naproxen 500 mg tablet 500 mg PO BID Pain #0 tabs 04/07/22 06/13/24 Rx furosemide 20 mg tablet See Rx Instructions .Route 12/04/22 06/13/24 History .COMPLEX Fluid omeprazole 20 mg capsule,delayed See Rx Instructions .Route 01/30/24 06/13/24 Rx release .COMPLEX #90 caps albuterol sulfate 90 mcg/actuation 2 puff inhalation Q6H PRN 02/15/24 06/13/24 Rx aerosol inhaler (Ventolin HFA) shortness of breath or wheezing #6.7 grams lisinopril 5 mg tablet 5 mg PO DAILY #90 tabs 03/22/24 06/13/24 Rx lidocaine 5 % topical patch 1 patch topical DAILY #30 ea 05/05/24 06/13/24 Rx methocarbamol 750 mg tablet 1,500 mg (2 x 750 mg) PO TID 5 05/05/24 06/13/24 Rx days #30 tabs gabapentin 100 mg capsule 100 mg PO TID #90 caps 05/25/24 06/13/24 Rx diclofenac sodium 75 mg 75 mg PO BID #60 tabs 05/26/24 06/13/24 Rx tablet,delayed release hydrocodone 5 mg-acetaminophen 325 1 tab PO BID #28 tabs 05/26/24 06/13/24 Rx mg tablet New Prescriptions to Start Prescriptions: Allergies Allergy/AdvReac Type Severity Reaction Status Date / Time No Known Allergies Allergy Verified 05/17/24 10:31 Assessment and Plan *Assessment and plan (1) Right knee pain: Status: Acute Category: Medical Code(s): M25.561 - Pain in right knee Plan Patient is experiencing chronic pain throughout her right knee with limited range of motion. I did discuss with the patient that she may benefit from a right knee intra-articular injection. Risk and benefits were discussed with the patient and she would like to proceed forward with this plan of care. I will also refill her [place] and provide a 1 month supply of this medication. Patient will be scheduled for a right knee intra-articular injection. Patient has tried and failed conservative therapy including continued at home stretching exercise for longer than 12 weeks. Risks and benefits of the medication have been explained in detail to the patient. The patient does understand the risk of dependence on the medication when given over a prolonged period. Patient has been advised of risks of oversedation with the prescribed medication. Narcan has been offered to the paitent in the event of oversedation. Patient has been advised that a family member should also be educated regarding administration of Narcan. The patient has been advised to consult with his/her primary care provider and pharmacist regarding drug-drug interaction of medications currently prescribed. Patient has been prescribed a controlled substance after being counseled on the medication, medication safety, and possible side effects. Opioid contract was reviewed and signed by the patient, and that they have agreed to all of the terms set forth by our compliance program. Patient has been instructed to contact the clinic with any concerns before the next appointment. Dr. Abad has reviewed this note and agrees with this plan of care. This note was dictated using voice recognition software and make contain errors or omissions.
== END 2024-06-13 23:59 | disposition home or self-care (01) ==
PROVIDERS: PCP Nurse Practitioner Family; Visit Provider Nurse Practitioner Family
DX: M25.561 Pain in right knee (principal)
CPT/HCPCS: 99212; G0463

== ENCOUNTER 2024-06-14 13:43 | Day surgery (SDC) | payer MEDICARE, SELFPAY ==
[2024-06-14 14:21] VITALS: BP 116/74; PULSE 60; RESP 16; TEMP 36.7; O2SAT 99; BMI 35.9
[2024-06-14] MEDS: LIDOCAINE 1% 5ML PF VIAL 5 ML (14:39)
[2024-06-14 14:40] VITALS: BP 135/58; PULSE 59; RESP 18; O2SAT 96
[2024-06-14 14:41] VITALS: BP 135/58; PULSE 59; RESP 18; O2SAT 96
[2024-06-14 14:52] VITALS: BP 131/75; PULSE 63; RESP 16; O2SAT 98
--- NOTE | 2024-06-14 15:05 | P.PCN_ITS ---
Procedure Date: 06/14/24 Time: 14:40 Anesthesiologist:: Erasmo Barth CRNA Complications:: None Pre-procedure Diagnosis:: Degenerative disc lumbar spine multilevels. Lumbar radiculopathy. Multilevel lumbar disc bulge L4-5, L5-S1 Post-procedure Diagnosis:: Same Indications for Procedure:: Patient is a very pleasant 63-year-old female who comes our clinic today for repeat right L4-5 and L5-S1 transforaminal epidural steroid injection. Patient describes right low lumbar back pain as well as right leg radicular symptoms to her foot as constant, dull, aching, sharp, stabbing. She rates her pain 8/10. Patient reports responding very well to previous transforaminal epidural steroid injections at same level. Procedure Details:: Details of the procedure explained to the patient. The patient was taken to procedure room placed in the prone position. The area over the lumbar spine was cleansed using chlorhexidine as a cleansing solution. Using fluoroscopy guidance markers were placed over the right border of the L4-5 and L5-S1 fatuma tebral body. At each marker the skin and subcutaneous tissue was anesthetized using 1% lidocaine and a 25-gauge needle. At this time using fluoroscopy guidance 3 and half inch 22-gauge spinal needle was used to access the upper one third of the L4-5 and L5-S1 foramen. Using fluoroscopy guidance in the lateral position needle position was confirmed using 0.5 mL of contrast dye. Good spread was noted in the epidural space at each level. After negative aspiration 2 mL of 1% lidocaine and 40 mg of Depo-Medrol was injected at each level. Patient tolerated procedure without difficulty. There are no complications. Plan and Disposition:: Patient was discharged without incident.
== END 2024-06-14 14:52 | disposition home or self-care (01) ==
LOC: SC.PAINP 13:44
PROVIDERS: PCP Nurse Practitioner Family; Visit Provider Nurse Anesthetist, Certified Registered
DX: M51.16 Intervertebral disc disorders with radiculopathy, lumbar region (principal)
CPT/HCPCS: 64483; 64484; J1010

== ENCOUNTER 2024-07-04 11:03 | Outpatient (POV) | payer MEDICARE, SELFPAY ==
--- NOTE | 2024-07-04 11:38 | EXP.PAIN.SOA ---
[facility] Disclaimer: The information contained in this section may have been updated after the patient was seen, as this information can be updated by other users. Medical History Sinusitis Acute bronchitis Chest pain Family History Other No significant family history Social History Smoking Status: Never smoker alcohol intake: never substance use type: former substance user and opiates current occupational status: employed Travel in the last 8 weeks: None household members: spouse housing: house current occupational exposures/hazards: No caffeine: Yes PM Subjective & Objective Subjective Subjective:: Patient is a pleasant 63-year-old female who presents today for follow-up of right transforaminal epidural steroid injection L4-L5 and L5-S1 on 06/14/2024. Today she rates her pain a 7 out of 10. She denies any new trauma or injury. She does state that she had at least 70% improvement following this injection and feels like it still helping. Patient does however feel like just overall her back has progressively worsened over the last few years. Patient denies any recent imaging. Patient is currently managed with [place] 5 mg twice a day. She denies any side effects from this medication. Patient does state that she also has chronic right knee pain and buttocks pain. She denies any other changes. She is scheduled for her next medication refill coming up. Her her Juan Luis has been reviewed and is appropriate. Review of Systems: General: No recent weight changes, no fever, no sleep disturbances Respiratory: No cough, no shortness of air, no recurring pulmonary infections Cardiovascular/peripheral vascular: No chest pain, no palpitations, no edema, no shortness of breath Gastrointestinal: No new onset incontinence, normal bowel movements reported Genitourinary: No new onset incontinence Musculoskeletal: Low back pain, right knee pain Psychiatric: [Normal mood/affect] Neurological: [Denies weakness in extremities], [denies balance issues] Pain at rest (0-10 scale): 7 Objective Objective:: Physical Exam: General: Alert and oriented x3, no acute distress, pleasant and cooperative Lungs: Respirations even and unlabored, symmetrical chest expansion Eyes: PERRL Musculoskeletal: Flexion and extension of lumbar [spine] somewhat guarded secondary to pain, [antalgic gait noted] Neurological: Speech clear, no gross sensory deficit Has patient had previous pain injection?: Yes Percent improvement in pain since last injection: 70% Conservative treatment options previously tried: Home exercise plan Length of treatment: Longer than 12 weeks Meds Home Medications and Allergies Home Medications ?Medication ?Instructions ?Recorded ?Confirmed ?Type naproxen 500 mg tablet 500 mg PO BID Pain #0 tabs 04/07/22 06/14/24 Rx furosemide 20 mg tablet See Rx Instructions .Route 12/04/22 06/14/24 History .COMPLEX Fluid omeprazole 20 mg capsule,delayed See Rx Instructions .Route 01/30/24 06/14/24 Rx release .COMPLEX #90 caps albuterol sulfate 90 mcg/actuation 2 puff inhalation Q6H PRN 02/15/24 06/14/24 Rx aerosol inhaler (Ventolin HFA) shortness of breath or wheezing #6.7 grams lisinopril 5 mg tablet 5 mg PO DAILY #90 tabs 03/22/24 06/14/24 Rx lidocaine 5 % topical patch 1 patch topical DAILY #30 ea 05/05/24 06/14/24 Rx methocarbamol 750 mg tablet 1,500 mg (2 x 750 mg) PO TID 5 05/05/24 06/14/24 Rx days #30 tabs diclofenac sodium 75 mg 75 mg PO BID #60 tabs 05/26/24 06/14/24 Rx tablet,delayed release hydrocodone 5 mg-acetaminophen 325 1 tab PO BID #60 tabs 06/13/24 06/14/24 Rx mg tablet gabapentin 100 mg capsule 100 mg PO TID #90 caps 06/24/24 Rx New Prescriptions to Start Prescriptions: Allergies Allergy/AdvReac Type Severity Reaction Status Date / Time No Known Allergies Allergy Verified 05/17/24 10:31 Assessment and Plan *Assessment and plan (1) Spinal stenosis of lumbar region: Status: Acute Category: Medical Code(s): M48.061 - Spinal stenosis, lumbar region without neurogenic claudication (2) Right knee pain: Status: Acute Category: Medical Code(s): M25.561 - Pain in right knee Plan Patient continues to have chronic pain throughout her low back with radiating numbness and tingling into her right lower extremity. Patient does state that she believes it has been years since she has had updated imaging. I did discuss with patient that I will order x-ray and MRI without contrast of her lumbar spine. Patient does already have her next follow-up appointment so I will not give her an additional appointment. We will review over her image findings at her next appointment along with medication refill. Patient has been instructed to contact the clinic with any concerns before the next appointment. Dr. Abad has reviewed this note and agrees with this plan of care. This note was dictated using voice recognition software and make contain errors or omissions. All injections are used with Lidocaine or Bupivacaine and Depo Medrol.
[2024-07-04 11:55] VITALS: BP 146/80; PULSE 64; RESP 18; O2SAT 96; BMI 35.8
--- NOTE | 2024-07-04 12:00 | XR_ITS ---
PROCEDURE INFORMATION: Exam: XR Lumbosacral Spine Exam date and time: 07/04/2024 12:12 PM Age: 63 years old Clinical indication: Low back pain; Additional info: Lbp TECHNIQUE: Imaging protocol: Radiologic exam of the lumbosacral spine. Views: 4 or 5 views. COMPARISON: MR LUMBAR SPINE WO CON 06/18/2021 1:18 PM FINDINGS: Bones/joints: Moderate compression fracture of L1 was present in 2020. There is no evidence of acute fracture.There is no evidence of malalignment or dislocation. Intervertebral disc spaces are narrowed L2 through L4 and L5/S1 consistent with degenerative disc disease.. Soft tissues: Unremarkable. IMPRESSION: 1. Moderate compression fracture of L1 was present in 2020. 2. There is no evidence of acute fracture.There is no evidence of malalignment or dislocation. 3. Intervertebral disc spaces are narrowed L2 through L4 and L5/S1 consistent with degenerative disc disease..
== END 2024-07-04 23:59 | disposition home or self-care (01) ==
PROVIDERS: PCP Nurse Practitioner Family; Visit Provider Nurse Practitioner Family
DX: M48.061 Spinal stenosis, lumbar region without neurogenic claudication (principal); M25.561 Pain in right knee
CPT/HCPCS: 72110; 99212; G0463

== ENCOUNTER 2024-07-12 13:20 | Day surgery (SDC) | payer MEDICARE, SELFPAY ==
[2024-07-12 13:34] VITALS: BP 113/68; PULSE 66; RESP 16; TEMP 36.8; O2SAT 97; BMI 35.1
--- NOTE | 2024-07-12 13:51 | P.PCN_ITS ---
Procedure Date: 07/12/24 Time: 13:50 Anesthesiologist:: Erasmo Barth CRNA Complications:: None Pre-procedure Diagnosis:: DJD right knee. Chronic right knee pain. Post-procedure Diagnosis:: Same. Indications for Procedure:: Patient is a pleasant 63-year-old female comes our clinic today for intra- articular right knee injection. Patient describes right knee pain as constant, dull, aching. Patient also reports difficulty with flexion, extension of the right knee. Also stairs increased knee pain significantly. She rates her pain 7/10. Procedure Details:: Details of the procedure explained to the patient. The patient taken procedure room placed in the sitting position. The over the right knee was cleaned using chlorhexidine as a cleansing solution. Using a 22-gauge inch and half needle the right knee joint was accessed from the anterior lateral position. After negative aspiration 4 cc of 1% lidocaine +4 cc of 0.25% Marcaine and 40 mg of Depo-Medrol was injected. Patient tolerated procedure without difficulty. There are no complications. Plan and Disposition:: Patient was discharged without incident.
[2024-07-12] MEDS: methylPREDNISolone ACETATE 80MG/ML VIAL 80 MG (13:52)
[2024-07-12] MEDS: LIDOCAINE 1% 5ML PF VIAL 5 ML (13:52)
[2024-07-12] MEDS: BUPIVACAINE 0.25% 10ML INJ 25 MG IJ (13:52)
[2024-07-12 14:00] VITALS: BP 120/71; PULSE 64; RESP 16; O2SAT 96
== END 2024-07-12 14:00 | disposition home or self-care (01) ==
PROVIDERS: PCP Nurse Practitioner Family; Visit Provider Nurse Anesthetist, Certified Registered
DX: M17.11 Unilateral primary osteoarthritis, right knee (principal); M25.561 Pain in right knee; G89.29 Other chronic pain
CPT/HCPCS: 20610; J1010

== ENCOUNTER 2024-08-08 13:22 | Outpatient (POV) | payer MEDICARE, SELFPAY ==
--- NOTE | 2024-08-08 14:22 | A.OFFVIS_ITS ---
[facility] Disclaimer: The information contained in this section may have been updated after the patient was seen, as this information can be updated by other users. Medical History Sinusitis Acute bronchitis Chest pain Family History Other No significant family history Social History Smoking Status: Never smoker alcohol intake: never substance use type: former substance user and opiates current occupational status: employed Travel in the last 8 weeks: None household members: spouse housing: house current occupational exposures/hazards: No caffeine: Yes PM Subjective & Objective Subjective Subjective:: Patient is a pleasant 63-year-old female who presents today for follow-up of right intra-articular knee injection on 07/12/2024 and medication refill. Today she rates her pain a 5 out of 10. Patient denies any new trauma or injury. She does state that she has had at least 90% improvement following this injection and feels like it is still working well. Patient is currently managed with diclofenac 75 mg twice a day, gabapentin 100 mg 3 times a day and [place] 5 mg twice a day. She denies any side effects from this medication Her Juan Luis has been reviewed and is appropriate. Review of Systems: General: No recent weight changes, no fever, no sleep disturbances Respiratory: No cough, no shortness of air, no recurring pulmonary infections Cardiovascular/peripheral vascular: No chest pain, no palpitations, no edema, no shortness of breath Gastrointestinal: No new onset incontinence, normal bowel movements reported Genitourinary: No new onset incontinence Musculoskeletal: Low back pain Psychiatric: [Normal mood/affect] Neurological: [Denies weakness in extremities], [denies balance issues] Pain at rest (0-10 scale): 5 Objective Objective:: Physical Exam: General: Alert and oriented x3, no acute distress, pleasant and cooperative Lungs: Respirations even and unlabored, symmetrical chest expansion Eyes: PERRL Musculoskeletal: Flexion and extension of lumbar [spine] somewhat guarded secondary to pain, [antalgic gait noted] Neurological: Speech clear, no gross sensory deficit Has patient had previous pain injection?: Yes Percent improvement in pain since last injection: 90% Conservative treatment options previously tried: Home exercise plan Length of treatment: Longer than 12 weeks Meds Home Medications and Allergies Home Medications ?Medication ?Instructions ?Recorded ?Confirmed ?Type naproxen 500 mg tablet 500 mg PO BID Pain #0 tabs 04/07/22 08/08/24 Rx furosemide 20 mg tablet See Rx Instructions .Route 12/04/22 07/12/24 History .COMPLEX Fluid omeprazole 20 mg capsule,delayed See Rx Instructions .Route 01/30/24 08/08/24 Rx release .COMPLEX #90 caps albuterol sulfate 90 mcg/actuation 2 puff inhalation Q6H PRN 02/15/24 08/08/24 Rx aerosol inhaler (Ventolin HFA) shortness of breath or wheezing #6.7 grams lisinopril 5 mg tablet 5 mg PO DAILY #90 tabs 03/22/24 07/12/24 Rx lidocaine 5 % topical patch 1 patch topical DAILY #30 ea 05/05/24 08/08/24 Rx methocarbamol 750 mg tablet 1,500 mg (2 x 750 mg) PO TID 5 05/05/24 08/08/24 Rx days #30 tabs gabapentin 100 mg capsule 100 mg PO TID #90 caps 06/24/24 07/12/24 Rx diclofenac sodium 75 mg 75 mg PO BID #60 tabs 08/08/24 Rx tablet,delayed release hydrocodone 5 mg-acetaminophen 325 1 tab PO BID #60 tabs 08/08/24 Rx mg tablet New Prescriptions to Start Prescriptions: diclofenac sodium Matias,Gill A hydrocodone-acetaminophen Salcedo,Gill A Allergies Allergy/AdvReac Type Severity Reaction Status Date / Time No Known Allergies Allergy Verified 05/17/24 10:31 Assessment and Plan *Assessment and plan (1) Degenerative joint disease (DJD) of lumbar spine: Status: Chronic Qualifiers: Spinal osteoarthritis complication: with radiculopathy Qualified Code(s): M47.26 - Other spondylosis with radiculopathy, lumbar region Category: Medical Code(s): M47.816 - Spondylosis without myelopathy or radiculopathy, lumbar region (2) Lumbar radiculopathy: Status: Chronic Category: Medical Code(s): M54.16 - Radiculopathy, lumbar region Plan Patient did have significant improvement with her right knee intra-articular injection and does not require any additional injection therapy at this time. I will refill the patient's [place] and provide a 1 month supply of this medication. I will also send in a 3-month supply of her diclofenac. Patient did just get a gabapentin refill with 3 months that does not need refills until August. Patient will return to clinic in 1 month for reevaluation of symptoms and medication refill. Risks and benefits of the medication have been explained in detail to the patient. The patient does understand the risk of dependence on the medication when given over a prolonged period. Patient has been advised of risks of oversedation with the prescribed medication. Narcan has been offered to the paitent in the event of oversedation. Patient has been advised that a family member should also be educated regarding administration of Narcan. The patient has been advised to consult with his/her primary care provider and pharmacist regarding drug-drug interaction of medications currently prescribed. Patient has been prescribed a controlled substance after being counseled on the medication, medication safety, and possible side effects. Opioid contract was reviewed and signed by the patient, and that they have agreed to all of the terms set forth by our compliance program. Patient has been instructed to contact the clinic with any concerns before the next appointment. Dr. Abad has reviewed this note and agrees with this plan of care. This note was dictated using voice recognition software and make contain errors or omissions.
[2024-08-08 14:27] VITALS: BP 119/63; PULSE 51; RESP 14; O2SAT 96; BMI 35.3
== END 2024-08-08 23:59 | disposition home or self-care (01) ==
PROVIDERS: PCP Nurse Practitioner Family; Visit Provider Nurse Practitioner Family
DX: M47.26 Other spondylosis with radiculopathy, lumbar region (principal); F11.91 Opioid use, unspecified, in remission
CPT/HCPCS: 99212; G0463

== ENCOUNTER 2024-09-08 13:03 | Outpatient (POV) | payer MEDICARE, SELFPAY ==
[2024-09-08 13:21] VITALS: BP 158/49; PULSE 64; RESP 18; O2SAT 100; BMI 35.1
--- NOTE | 2024-09-08 13:26 | A.OFFVIS_ITS ---
[facility] Disclaimer: The information contained in this section may have been updated after the patient was seen, as this information can be updated by other users. Medical History Sinusitis Acute bronchitis Chest pain Family History Other No significant family history Social History Smoking Status: Never smoker alcohol intake: never substance use type: former substance user and opiates current occupational status: other Travel in the last 8 weeks: None household members: spouse housing: house current occupational exposures/hazards: No caffeine: Yes PM Subjective & Objective Subjective Subjective:: Patient is a pleasant 63-year-old female who presents today for medication refill and worsening pain in her right shoulder. She rates it a 7 out of 10. She denies any new trauma or injury. She does describe it as a toothache like sensation that is worse with increased activity or ambulation with movement at that joint. She states the pain is really starting to interfere with her a bility to perform activities of daily living such as cooking and cleaning. Patient has had chronic pain in this joint space in the past and has had injections that did provide significant relief. Patient's last injection for this joint was back in February and she would like to see about getting scheduled for repeat. Patient states that she did have improved function with decreased pain following that procedure. Patient is currently managed with diclofenac 75 mg twice a day, gabapentin 100 mg 3 times a day and [place] 5 mg twice a day from our office. She denies any side effects from these medications. Her Juan Luis has been reviewed and is appropriate. Review of Systems: General: No recent weight changes, no fever, no sleep disturbances Respiratory: No cough, no shortness of air, no recurring pulmonary infections Cardiovascular/peripheral vascular: No chest pain, no palpitations, no edema, no shortness of breath Gastrointestinal: No new onset incontinence, normal bowel movements reported Genitourinary: No new onset incontinence Musculoskeletal: Right shoulder pain Psychiatric: [Normal mood/affect] Neurological: [Denies weakness in extremities], [denies balance issues] Pain at rest (0-10 scale): 7 Objective Objective:: Physical Exam: General: Alert and oriented x3, no acute distress, pleasant and cooperative Lungs: Respirations even and unlabored, symmetrical chest expansion Eyes: PERRL Musculoskeletal: Flexion and extension of right shoulder somewhat guarded secondary to pain, [antalgic gait noted] Neurological: Speech clear, no gross sensory deficit Has patient had previous pain injection?: No Conservative treatment options previously tried: Home exercise plan Length of treatment: Longer than 12 weeks Meds Home Medications and Allergies Home Medications ?Medication ?Instructions ?Recorded ?Confirmed ?Type naproxen 500 mg tablet 500 mg PO BID Pain #0 tabs 04/07/22 08/08/24 Rx furosemide 20 mg tablet See Rx Instructions .Route 12/04/22 08/08/24 History .COMPLEX Fluid omeprazole 20 mg capsule,delayed See Rx Instructions .Route 01/30/24 08/08/24 Rx release .COMPLEX #90 caps albuterol sulfate 90 mcg/actuation 2 puff inhalation Q6H PRN 02/15/24 08/08/24 Rx aerosol inhaler (Ventolin HFA) shortness of breath or wheezing #6.7 grams lisinopril 5 mg tablet 5 mg PO DAILY #90 tabs 03/22/24 08/08/24 Rx lidocaine 5 % topical patch 1 patch topical DAILY #30 ea 05/05/24 08/08/24 Rx methocarbamol 750 mg tablet 1,500 mg (2 x 750 mg) PO TID 5 05/05/24 08/08/24 Rx days #30 tabs gabapentin 100 mg capsule 100 mg PO TID #90 caps 06/24/24 08/08/24 Rx diclofenac sodium 75 mg 75 mg PO BID #60 tabs 08/08/24 Rx tablet,delayed release hydrocodone 5 mg-acetaminophen 325 1 tab PO BID #60 tabs 08/08/24 Rx mg tablet New Prescriptions to Start Prescriptions: Allergies Allergy/AdvReac Type Severity Reaction Status Date / Time No Known Allergies Allergy Verified 05/17/24 10:31 Assessment and Plan *Assessment and plan (1) Right shoulder pain: Status: Acute Category: Medical Code(s): M25.511 - Pain in right shoulder (2) Primary osteoarthritis, right shoulder: Status: Acute Category: Medical Code(s): M19.011 - Primary osteoarthritis, right shoulder Plan Patient is experiencing significant pain related to her right shoulder with limited range of motion. Patient does have a history of osteoarthritis and pain in this joint space and has had interventions in the past including a right intra-articular shoulder injection back on March 10, 2023. This injection did provide 90 to 100% relief in that joint space and lasted more than a year. Patient states that it just really started to seem more aggravated over the last couple of months. Patient has continued conservative treatment including oral medications, heat and ice, topicals, at home stretching exercise for longer than 12 weeks and between injections with no additional improvement. Patient will be scheduled for a repeat right intra-articular shoulder injection. This will be done without fluoroscopic guidance or ultrasound. We will also make sure that she does have refills on her gabapentin, diclofenac and [place]. Patient will follow-up following this injection for efficacy. Risks and benefits of the medication have been explained in detail to the patient. The patient does understand the risk of dependence on the medication when given over a prolonged period. Patient has been advised of risks of oversedation with the prescribed medication. Narcan has been offered to the paitent in the event of oversedation. Patient has been advised that a family member should also be educated regarding administration of Narcan. The patient has been advised to consult with his/her primary care provider and pharmacist regarding drug-drug interaction of medications currently prescribed. Patient has been prescribed a controlled substance after being counseled on the medication, medication safety, and possible side effects. Opioid contract was reviewed and signed by the patient, and that they have agreed to all of the terms set forth by our compliance program. A UDS is needed to verify patient's compliance with our office pain contract. This is ordered based off specific treatments related to chronic pain with the potential to abuse certain medications. Patient has been instructed to contact the clinic with any concerns before the next appointment. Dr. Abad has reviewed this note and agrees with this plan of care. This note was dictated using voice recognition software and make contain errors or omissions.
== END 2024-09-08 23:59 | disposition home or self-care (01) ==
PROVIDERS: PCP Nurse Practitioner Family; Visit Provider Nurse Practitioner Family
DX: M25.511 Pain in right shoulder (principal); M19.011 Primary osteoarthritis, right shoulder; Z73.89 Other problems related to life management difficulty
CPT/HCPCS: 99212; G0463

== ENCOUNTER 2024-09-20 12:37 | Day surgery (SDC) | payer MEDICARE, SELFPAY ==
[2024-09-20 13:31] VITALS: BP 111/83; PULSE 67; RESP 18; O2SAT 98; BMI 35.5
--- NOTE | 2024-09-20 13:31 | P.PCN_ITS ---
Procedure Date: 09/20/24 Time: 13:30 Anesthesiologist:: Erasmo Barth CRNA Complications:: None Pre-procedure Diagnosis:: DJD right shoulder. Chronic right shoulder pain. Post-procedure Diagnosis:: Same. Indications for Procedure:: Patient is a pleasant 64-year-old female comes our clinic today for right intra- articular shoulder injection of cortisone and local anesthetic. Patient describes right shoulder pain as constant, dull, aching. Patient has 5/5 strength in the right arm. However, limited range of motion secondary to right shoulder pain. She rates her pain 7/10. Procedure Details:: Procedure Details: Right shoulder intra-articular injection Informed consent was obtained risk and benefits of the procedure were explained to the patient. Patient was taken to the procedure room. The right shoulder was prepped using ChloraPrep. A 25-gauge needle was used posteriorly to inject 10 mL bupivacaine 0.25% and Depo-Medrol 40 mg. Patient tolerated procedure well with no complications. Plan and Disposition:: Patient was discharged without incident.
[2024-09-20] MEDS: BUPIVACAINE 0.25% 10ML INJ 25 MG IJ (13:33)
[2024-09-20] MEDS: LIDOCAINE 1% 5ML PF VIAL 5 ML (13:33)
[2024-09-20 13:34] VITALS: BP 110/71; PULSE 71; RESP 18; O2SAT 98
[2024-09-20] MEDS: methylPREDNISolone ACETATE 80MG/ML VIAL 80 MG (13:34)
[2024-09-20 13:36] VITALS: BP 110/71; PULSE 71; RESP 18; O2SAT 98
[2024-09-20 13:46] VITALS: BP 125/75; PULSE 64; RESP 18; O2SAT 98
== END 2024-09-20 13:46 | disposition home or self-care (01) ==
PROVIDERS: PCP Nurse Practitioner Family; Visit Provider Nurse Anesthetist, Certified Registered
DX: M19.011 Primary osteoarthritis, right shoulder (principal); M25.511 Pain in right shoulder; G89.29 Other chronic pain
CPT/HCPCS: 20610; J1010

== ENCOUNTER 2024-10-06 08:39 | Outpatient (POV) | payer MEDICARE, SELFPAY ==
--- NOTE | 2024-10-06 08:58 | EXP.PAIN.SOA ---
[facility] Disclaimer: The information contained in this section may have been updated after the patient was seen, as this information can be updated by other users. Medical History Sinusitis Acute bronchitis Chest pain Family History Other No significant family history Social History (Updated 09/20/24 @ 13:33 by Mayuri Mo RN) Smoking Status: Never smoker alcohol intake: never substance use type: former substance user and opiates current occupational status: other Travel in the last 8 weeks: None household members: spouse housing: house current occupational exposures/hazards: No caffeine: Yes Have you lived/traveled outside [place] in past 30 days?: No Contact w/someone who lives/traveled outside [place] past 30 days?: No Exposure to someone with infectious disease in past 14 days?: No Do you have a fever (greater than 100.4 F or 38 C)?: No Have you tested positive for COVID-19: No Exposed to someone with COVID-19 in past 14 days?: No Do you have a sore throat?: No Do you have a cough?: No Do you have any weakness?: No Do you have any diarrhea?: No Are you experiencing any unusual bleeding?: No Do you have any muscle aches/pain?: No Do you have any abdominal pain?: No Are you experiencing loss of taste or smell?: No PM Subjective & Objective Subjective Subjective:: Patient is a pleasant 64-year-old female who presents today for follow-up of right intra-articular shoulder injection on 09/20/2024. Today she rates her pain in her shoulder a 2 out of 10 and states that she has had at least 80% improvement and feels like it still helping. She does however right her low back pain a 2 out of 10. Patient states that it is an aching, throbbing sensation with numbness and tingling that does only radiate down into the right extremity. Patient does state that she would like to see about getting scheduled for a repeat injection. Patient had her last epidural back in May that did provide 70% relief and is lasted up until about the last week or 2. Patient did get improved function with this. Patient is also managed with diclofenac 75 mg twice a day, gabapentin 100 mg 3 times a day and [place] 5 mg twice a day from our office. She denies any side effects. Her Juan Luis has been reviewed and is appropriate. Review of Systems: General: No recent weight changes, no fever, no sleep disturbances Respiratory: No cough, no shortness of air, no recurring pulmonary infections Cardiovascular/peripheral vascular: No chest pain, no palpitations, no edema, no shortness of breath Gastrointestinal: No new onset incontinence, normal bowel movements reported Genitourinary: No new onset incontinence Musculoskeletal: Low back pain, right leg pain Psychiatric: [Normal mood/affect] Neurological: [Denies weakness in extremities], [denies balance issues] Pain at rest (0-10 scale): 7 Objective Objective:: Physical Exam: General: Alert and oriented x3, no acute distress, pleasant and cooperative Lungs: Respirations even and unlabored, symmetrical chest expansion Eyes: PERRL Musculoskeletal: Flexion and extension of lumbar [spine] somewhat guarded secondary to pain, [antalgic gait noted] positive right leg raise with decreased sensation to light touch and decreased reflexes Neurological: Speech clear, no gross sensory deficit Has patient had previous pain injection?: Yes Percent improvement in pain since last injection: 80% Conservative treatment options previously tried: Home exercise plan Length of treatment: Longer than 12 weeks Meds Home Medications and Allergies Home Medications ?Medication ?Instructions ?Recorded ?Confirmed ?Type naproxen 500 mg tablet 500 mg PO BID Pain #0 tabs 04/07/22 09/08/24 Rx furosemide 20 mg tablet See Rx Instructions .Route 12/04/22 09/08/24 History .COMPLEX Fluid albuterol sulfate 90 mcg/actuation 2 puff inhalation Q6H PRN 02/15/24 09/08/24 Rx aerosol inhaler (Ventolin HFA) shortness of breath or wheezing #6.7 grams lisinopril 5 mg tablet 5 mg PO DAILY #90 tabs 03/22/24 09/08/24 Rx lidocaine 5 % topical patch 1 patch topical DAILY #30 ea 05/05/24 09/08/24 Rx methocarbamol 750 mg tablet 1,500 mg (2 x 750 mg) PO TID 5 05/05/24 09/08/24 Rx days #30 tabs diclofenac sodium 75 mg 75 mg PO BID #60 tabs 08/08/24 09/08/24 Rx tablet,delayed release gabapentin 100 mg capsule 100 mg PO TID #90 caps 09/08/24 Rx hydrocodone 5 mg-acetaminophen 325 1 tab PO BID #60 tabs 09/08/24 Rx mg tablet omeprazole 20 mg capsule,delayed See Rx Instructions .Route 09/26/24 Rx release .COMPLEX #90 caps New Prescriptions to Start Prescriptions: Allergies Allergy/AdvReac Type Severity Reaction Status Date / Time No Known Allergies Allergy Verified 05/17/24 10:31 Assessment and Plan *Assessment and plan (1) Spinal stenosis of lumbar region: Status: Acute Category: Medical Code(s): M48.061 - Spinal stenosis, lumbar region without neurogenic claudication (2) Lumbar radiculopathy: Status: Chronic Category: Medical Code(s): M54.16 - Radiculopathy, lumbar region (3) Degenerative joint disease (DJD) of lumbar spine: Status: Chronic Qualifiers: Spinal osteoarthritis complication: with radiculopathy Qualified Code(s): M47.26 - Other spondylosis with radiculopathy, lumbar region Category: Medical Code(s): M47.816 - Spondylosis without myelopathy or radiculopathy, lumbar region Plan Patient is experiencing worsening pain in her low back that does radiate down the entire extremity on the right side. Patient does have numbness and tingling and did have limited range of motion of her lumbar spine with a positive right leg raise. I did discuss with the patient that I do believe she would benefit from repeat right transforaminal epidural steroid injection. Risk and benefits were discussed with the patient and she would like to proceed forward with this plan of care. Patient has tried and failed conservative therapy including continued at home stretching exercise that was physician guided for longer than 12 weeks in between injections. We will also refill her [place] and verify that she does have refills on her gabapentin and diclofenac. Patient will be scheduled for a repeat right transforaminal epidural steroid injection L4-L5 and L5-S1 under fluoroscopy. Patient did get with her last 1 in May 70% relief lasting longer than 3 months. Patient has had this chronic pain for years in her back that is progressively worsened. Risks and benefits of the medication have been explained in detail to the patient. The patient does understand the risk of dependence on the medication when given over a prolonged period. Patient has been advised of risks of oversedation with the prescribed medication. Narcan has been offered to the paitent in the event of oversedation. Patient has been advised that a family member should also be educated regarding administration of Narcan. The patient has been advised to consult with his/her primary care provider and pharmacist regarding drug-drug interaction of medications currently prescribed. Patient has been prescribed a controlled substance after being counseled on the medication, medication safety, and possible side effects. Opioid contract was reviewed and signed by the patient, and that they have agreed to all of the terms set forth by our compliance program. A UDS is needed to verify patient's compliance with our office pain contract. This is ordered based off specific treatments related to chronic pain with the potential to abuse certain medications. Patient has been instructed to contact the clinic with any concerns before the next appointment. Dr. Abad has reviewed this note and agrees with this plan of care. This note was dictated using voice recognition software and make contain errors or omissions.
[2024-10-06 09:43] VITALS: BP 145/89; PULSE 69; RESP 14; O2SAT 98; BMI 34.2
== END 2024-10-06 23:59 | disposition home or self-care (01) ==
PROVIDERS: PCP Nurse Practitioner Family; Visit Provider Nurse Practitioner Family
DX: M48.061 Spinal stenosis, lumbar region without neurogenic claudication (principal); M47.26 Other spondylosis with radiculopathy, lumbar region
CPT/HCPCS: 99212; G0463

== ENCOUNTER 2024-11-08 09:44 | Day surgery (SDC) | payer MEDICARE, SELFPAY ==
[2024-11-08 09:55] VITALS: BP 147/61; PULSE 64; RESP 16; TEMP 36.9; O2SAT 100; BMI 34.4
--- NOTE | 2024-11-08 10:15 | EXP.PAIN.PRO ---
Procedure Date: 11/08/24 Time: 10:00 Anesthesiologist:: Erasmo Barth CRNA Complications:: None Pre-procedure Diagnosis:: Degenerative disc lumbar spine multilevels. Lumbar radiculopathy. Lumbar disc bulge L4-5, L5-S1. Post-procedure Diagnosis:: Same. Indications for Procedure:: Patient is a pleasant 64-year-old female who comes our clinic today for right L4-5, L5-S1 transforaminal epidural steroid injection. Patient describes low lumbar back pain off the midline to the right, right buttock pain. Right leg radicular symptoms to the foot at times. She rates her pain 7/10. Procedure Details:: Details of the procedure explained to the patient. The patient was taken to procedure room placed in the prone position. The area over the lumbar spine was cleansed using chlorhexidine as a cleansing solution. Using fluoroscopy guidance markers were placed over the right border of the L4-5 and L5-S1 vertebral body. At each marker the skin and subcutaneous tissue was anesthetized using 1% lidocaine and a 25-gauge needle. At this time using fluoroscopy guidance 3 and half inch 22-gauge spinal needle was used to access the upper one third of the L4 for 5 and L5-S1 foramen. Using fluoroscopy guidance in the lateral position needle position was confirmed using 0.5 mL of contrast dye. Good spread was noted in the epidural space at each level. After negative aspiration 2 mL of 1% lidocaine and 40 mg of Depo-Medrol was injected at each level. Patient tolerated procedure without difficulty. There are no complications. Plan and Disposition:: Patient was discharged without incident.
[2024-11-08 10:16] VITALS: BP 141/78; PULSE 57; RESP 16; O2SAT 99
[2024-11-08] MEDS: LIDOCAINE 1% 5ML PF VIAL 5 ML (11:56)
[2024-11-08 11:57] VITALS: BP 149/70; PULSE 57; RESP 18; O2SAT 98
[2024-11-08 12:05] VITALS: BP 149/70; PULSE 57; RESP 18; O2SAT 98
== END 2024-11-08 10:16 | disposition home or self-care (01) ==
PROVIDERS: PCP Nurse Practitioner Family; Visit Provider Nurse Anesthetist, Certified Registered
DX: M51.16 Intervertebral disc disorders with radiculopathy, lumbar region (principal)
CPT/HCPCS: 64483; 64484; J1010

== ENCOUNTER 2024-11-21 14:44 | Outpatient (POV) | payer MEDICARE, SELFPAY ==
--- NOTE | 2024-11-21 14:49 | EXP.PAIN.SOA ---
[facility] Disclaimer: The information contained in this section may have been updated after the patient was seen, as this information can be updated by other users. Medical History Sinusitis Acute bronchitis Chest pain Family History Other No significant family history Social History Smoking Status: Never smoker alcohol intake: never substance use type: former substance user and opiates current occupational status: other Travel in the last 8 weeks: None household members: spouse housing: house current occupational exposures/hazards: No caffeine: Yes PM Subjective & Objective Subjective Subjective:: Patient is a pleasant 64-year-old female who presents today for follow-up of right transforaminal epidural L4-L5 L5-S1 on 11/08/2024. Today she rates her pain a 2 out of 10. She does state that this injection has provided at least 85 to 90% improvement and is still working well. She does only make mention that her right knee still wants to move out of place when she is up walking. Patient does state that she will pop it back into place and this does help. Patient does state that she just feels like it locks up from time to time and the pain does vary. She states right now it is manageable and it is not affecting her sleeping. Patient has had injections in the past for this and did get significant relief. Patient is currently managed with diclofenac 75 mg twice a day, gabapentin 100 mg 3 times a day and [place] 5 mg twice a day from our office. She denies any side effects from this medication. She is asking if there is anything we can do to make adjustment of her pain medication to give better coverage. her Juan Luis has been reviewed and is appropriate. Review of Systems: General: No recent weight changes, no fever, no sleep disturbances Respiratory: No cough, no shortness of air, no recurring pulmonary infections Cardiovascular/peripheral vascular: No chest pain, no palpitations, no edema, no shortness of breath Gastrointestinal: No new onset incontinence, normal bowel movements reported Genitourinary: No new onset incontinence Musculoskeletal: Right knee pain Psychiatric: [Normal mood/affect] Neurological: [Denies weakness in extremities], [denies balance issues] Pain at rest (0-10 scale): 2 Objective Objective:: Physical Exam: General: Alert and oriented x3, no acute distress, pleasant and cooperative Lungs: Respirations even and unlabored, symmetrical chest expansion Eyes: PERRL Musculoskeletal: Flexion and extension of right knee somewhat guarded secondary to pain, [antalgic gait noted] Neurological: Speech clear, no gross sensory deficit Has patient had previous pain injection?: Yes Percent improvement in pain since last injection: 85 to 90% Conservative treatment options previously tried: Home exercise plan Length of treatment: Longer than 12 weeks Meds Home Medications and Allergies Home Medications ?Medication ?Instructions ?Recorded ?Confirmed ?Type naproxen 500 mg tablet 500 mg PO BID Pain #0 tabs 04/07/22 11/08/24 Rx furosemide 20 mg tablet See Rx Instructions .Route 12/04/22 11/08/24 History .COMPLEX Fluid albuterol sulfate 90 mcg/actuation 2 puff inhalation Q6H PRN 02/15/24 11/08/24 Rx aerosol inhaler (Ventolin HFA) shortness of breath or wheezing #6.7 grams lisinopril 5 mg tablet 5 mg PO DAILY #90 tabs 03/22/24 11/08/24 Rx lidocaine 5 % topical patch 1 patch topical DAILY #30 ea 05/05/24 11/08/24 Rx methocarbamol 750 mg tablet 1,500 mg (2 x 750 mg) PO TID 5 05/05/24 11/08/24 Rx days #30 tabs omeprazole 20 mg capsule,delayed See Rx Instructions .Route 09/26/24 11/08/24 Rx release .COMPLEX #90 caps diclofenac sodium 75 mg 75 mg PO BID #60 tabs 11/09/24 Rx tablet,delayed release gabapentin 100 mg capsule 100 mg PO TID #90 caps 11/09/24 Rx hydrocodone 5 mg-acetaminophen 325 1 tab PO BID #60 tabs 11/09/24 Rx mg tablet New Prescriptions to Start Prescriptions: Allergies Allergy/AdvReac Type Severity Reaction Status Date / Time No Known Allergies Allergy Verified 05/17/24 10:31 Assessment and Plan *Assessment and plan (1) Right knee pain: Status: Acute Category: Medical Code(s): M25.561 - Pain in right knee (2) Chronic pain syndrome: Status: Acute Category: Medical Code(s): G89.4 - Chronic pain syndrome Plan Patient does have significant findings throughout her back including severe narrowing in her cervical spine prior compression fracture in her lumbar spine and chronic pain in multiple joints including her shoulder and her right knee. I will make an adjustment of her pain medication to [place] 5 mg 3 times a day and make sure that she does have refills on her gabapentin and diclofenac. Patient will return to clinic in 1 month. Risks and benefits of the medication have been explained in detail to the patient. The patient does understand the risk of dependence on the medication when given over a prolonged period. Patient has been advised of risks of oversedation with the prescribed medication. Narcan has been offered to the paitent in the event of oversedation. Patient has been advised that a family member should also be educated regarding administration of Narcan. The patient has been advised to consult with his/her primary care provider and pharmacist regarding drug-drug interaction of medications currently prescribed. Patient has been prescribed a controlled substance after being counseled on the medication, medication safety, and possible side effects. Opioid contract was reviewed and signed by the patient, and that they have agreed to all of the terms set forth by our compliance program. A UDS is needed to verify patient's compliance with our office pain contract. This is ordered based off specific treatments related to chronic pain with the potential to abuse certain medications. Patient has been instructed to contact the clinic with any concerns before the next appointment. Dr. Abad has reviewed this note and agrees with this plan of care. This note was dictated using voice recognition software and make contain errors or omissions.
[2024-11-21 15:39] VITALS: BP 116/72; PULSE 65; RESP 16; O2SAT 96; BMI 34.0
== END 2024-11-21 23:59 | disposition home or self-care (01) ==
PROVIDERS: PCP Nurse Practitioner Family; Visit Provider Nurse Practitioner Family
DX: M25.561 Pain in right knee (principal); G89.4 Chronic pain syndrome
CPT/HCPCS: 99212; G0463

== ENCOUNTER 2024-12-26 14:08 | Outpatient (POV) | payer MEDICARE, SELFPAY ==
--- OUTSIDE RECORDS SUMMARY | 2024-12-26 14:09 | XMS_ITS ---
Author Organization Unknown TREATMENT PLAN Planned Care Start Date Provider Encounter for Check-up [id number] [facility]
--- NOTE | 2024-12-26 14:12 | EXP.PAIN.SOA ---
[facility] Disclaimer: The information contained in this section may have been updated after the patient was seen, as this information can be updated by other users. Medical History Sinusitis Acute bronchitis Chest pain Family History Other No significant family history Social History Smoking Status: Never smoker alcohol intake: never substance use type: former substance user and opiates current occupational status: other Travel in the last 8 weeks: None household members: spouse housing: house current occupational exposures/hazards: No caffeine: Yes PM Subjective & Objective Subjective Subjective:: 5 Patient is a pleasant 64-year-old female who presents today for 1 month follow-up and medication refill. Today she rates her pain a out of 10. She denies any new trauma or injury. Patient had her last right transforaminal L4-L5 and L5-S1 back in October they did provide 85 to 90% improvement. At her last visit we did increase her pain medicine with an additional tablet and she does state that that has helped. Patient is currently managed with diclofenac 75 mg twice a day, gabapentin 100 mg 3 times a day and [place] 5 mg 3 times a day from our office. She denies any side effects. Her Juan Luis has been reviewed and is appropriate. Review of Systems: General: No recent weight changes, no fever, no sleep disturbances Respiratory: No cough, no shortness of air, no recurring pulmonary infections Cardiovascular/peripheral vascular: No chest pain, no palpitations, no edema, no shortness of breath Gastrointestinal: No new onset incontinence, normal bowel movements reported Genitourinary: No new onset incontinence Musculoskeletal: Low back pain Psychiatric: [Normal mood/affect] Neurological: [Denies weakness in extremities], [denies balance issues] Pain at rest (0-10 scale): 5 Objective Objective:: Physical Exam: General: Alert and oriented x3, no acute distress, pleasant and cooperative Lungs: Respirations even and unlabored, symmetrical chest expansion Eyes: PERRL Musculoskeletal: Flexion and extension of lumbar [spine] somewhat guarded secondary to pain, [antalgic gait noted] Neurological: Speech clear, no gross sensory deficit Has patient had previous pain injection?: No Conservative treatment options previously tried: Home exercise plan Length of treatment: Longer than 12 weeks Meds Home Medications and Allergies Home Medications ?Medication ?Instructions ?Recorded ?Confirmed ?Type naproxen 500 mg tablet 500 mg PO BID Pain #0 tabs 04/07/22 11/21/24 Rx furosemide 20 mg tablet See Rx Instructions .Route 12/04/22 11/21/24 History .COMPLEX Fluid albuterol sulfate 90 mcg/actuation 2 puff inhalation Q6H PRN 02/15/24 11/21/24 Rx aerosol inhaler (Ventolin HFA) shortness of breath or wheezing #6.7 grams lisinopril 5 mg tablet 5 mg PO DAILY #90 tabs 03/22/24 11/21/24 Rx lidocaine 5 % topical patch 1 patch topical DAILY #30 ea 05/05/24 11/21/24 Rx methocarbamol 750 mg tablet 1,500 mg (2 x 750 mg) PO TID 5 05/05/24 11/21/24 Rx days #30 tabs omeprazole 20 mg capsule,delayed See Rx Instructions .Route 09/26/24 11/21/24 Rx release .COMPLEX #90 caps diclofenac sodium 75 mg 75 mg PO BID #60 tabs 11/09/24 11/21/24 Rx tablet,delayed release gabapentin 100 mg capsule 100 mg PO TID #90 caps 11/09/24 11/21/24 Rx hydrocodone 5 mg-acetaminophen 325 1 tab PO TID #90 tabs 12/26/24 Rx mg tablet New Prescriptions to Start Prescriptions: hydrocodone-acetaminophen Gill Salcedo Allergies Allergy/AdvReac Type Severity Reaction Status Date / Time No Known Allergies Allergy Verified 05/17/24 10:31 Assessment and Plan *Assessment and plan (1) Chronic pain syndrome: Status: Acute Category: Medical Code(s): G89.4 - Chronic pain syndrome (2) Degenerative joint disease (DJD) of lumbar spine: Status: Chronic Qualifiers: Spinal osteoarthritis complication: with radiculopathy Qualified Code(s): M47.26 - Other spondylosis with radiculopathy, lumbar region Category: Medical Code(s): M47.816 - Spondylosis without myelopathy or radiculopathy, lumbar region Plan I will refill the patient's Cla[place] and provide a 1 month supply of this medication. Patient was given a 3-month supply of the diclofenac and gabapentin at her last visit does not need refills on those. Patient will return to clinic in 1 month for reevaluation of symptoms and plan of care. Risks and benefits of the medication have been explained in detail to the patient. The patient does understand the risk of dependence on the medication when given over a prolonged period. Patient has been advised of risks of oversedation with the prescribed medication. Narcan has been offered to the paitent in the event of oversedation. Patient has been advised that a family member should also be educated regarding administration of Narcan. The patient has been advised to consult with his/her primary care provider and pharmacist regarding drug-drug interaction of medications currently prescribed. Patient has been prescribed a controlled substance after being counseled on the medication, medication safety, and possible side effects. Opioid contract was reviewed and signed by the patient, and that they have agreed to all of the terms set forth by our compliance program. A UDS is needed to verify patient's compliance with our office pain contract. This is ordered based off specific treatments related to chronic pain with the potential to abuse certain medications. Patient has been instructed to contact the clinic with any concerns before the next appointment. Dr. Abad has reviewed this note and agrees with this plan of care. This note was dictated using voice recognition software and make contain errors or omissions.
[2024-12-26 14:15] VITALS: BP 159/83; BP 177/85; PULSE 87; RESP 16; O2SAT 97; BMI 34.0
== END 2024-12-26 23:59 | disposition home or self-care (01) ==
PROVIDERS: PCP Nurse Practitioner Family; Visit Provider Nurse Practitioner Family
DX: G89.4 Chronic pain syndrome (principal); M47.26 Other spondylosis with radiculopathy, lumbar region
CPT/HCPCS: 36415; 99212; G0463

== ENCOUNTER 2025-01-11 12:24 | Outpatient (CLI) | payer MEDICARE, SELFPAY ==
[2025-01-11 18:58] LABS: Basophils # 0.1 K/mm3 (0-0.2); Basophils % 0.9 % (0.1-2.0); Eosinophils # 0.2 Kmm3 (0.0-0.4); Hematocrit 41.2 % (37.0-47.0); Hemoglobin 13.6 g/dL (12.2-16.2); Immature Granulocytes # 0.02 10^3uL; Immature Granulocytes % 0.3 %; Lymphocytes # 2.1 K/mm3 (0.7-4.5); Mean Corpuscular Hemoglobin 31.1 pg (27.0-31.2); Mean Corpuscular Volume 94.3 fl (81-99); Mean Platelet Volume 10.8 fl (7.4-10.4); Monocytes # 0.6 K/mm3 (0.1-1.0); Monocytes % 8.2 % (1.7-9.3); Neutrophils # 4.5 K/mm3 (1.8-7.8); Neutrophils % 59.6 % (37.0-80.0); Nucleated Red Blood Cells # 0 10^3/uL; Nucleated Red Blood Cells % 0 %; Platelet Count 260 K/mm3 (142-424); Red Blood Count 4.37 M/mm3 (4.20-5.40); Red Cell Distribution Width 12.6 % (11.5-17.5); Red Cell Distribution Width-SD 43.8 fL; White Blood Count 7.6 K/mm3 (4.8-10.8)
[2025-01-11 20:00] LABS: Albumin Level 4.1 g/dl (3.5-5.0); Chloride 104 mmol/L (98-107); Potassium 4.3 mmoL/L (3.5-5.1); Sodium 136 mmol/L (136-145)
[2025-01-11 20:02] LABS: Alanine Aminotransferase 17 U/L (12-78); Aspartate Amino Transferase 30 U/L (14-36); Blood Urea Nitrogen 24 mg/dl (7-17); Estimated Glomerular Filt Rate 63 ml/min (>60); GFR (African American) 76 ML/MIN (>60)
[2025-01-11 20:03] LABS: Albumin/Globulin Ratio 1.7 (1.1-1.8); Alkaline Phosphatase 85 U/L (38-126); Anion Gap 9.3 mEq/L (5-15); Bilirubin,Total 0.4 mg/dl (0.2-1.3); Calcium 8.8 mg/dl (8.4-10.2); Carbon Dioxide 27 mmol/L (22.0-30.0); Chol/HDL Ratio 3.4 (1-3.5); Cholesterol 179 mg/dl (140-200); Globulin 2.4 g/dL (1.3-3.2); Glucose 90 mg/dl (74-100); HDL Cholesterol 52 mg/dl (40-60); Total Protein,Serum 6.5 g/dl (6.3-8.2); Triglycerides 137 mg/dl (30-150); VLDL Cholesterol 27 mg/dL (0-40)
[2025-01-11 20:19] LABS: Direct LDL Cholesterol 84.82 mg/dL (100-129)
[2025-01-11 20:41] LABS: 25-OH Vitamin D, Total 48.9 ng/mL (30-100); Thyroid Stimulating Hormone 1.33 uIU/mL (0.465-4.68)
== END 2025-01-11 23:59 | disposition home or self-care (01) ==
LOC: LAB.DROPOF 01-13 12:24
PROVIDERS: PCP Nurse Practitioner Family; Visit Provider Nurse Practitioner Family
DX: G89.4 Chronic pain syndrome (principal); I10 Essential (primary) hypertension; M47.26 Other spondylosis with radiculopathy, lumbar region; Z68.35 Body mass index [BMI] 35.0-35.9, adult
CPT/HCPCS: 80053; 80061; 82306; 84443; 85025

== ENCOUNTER 2025-01-17 08:47 | Outpatient (CLI) | payer MEDICARE, SELFPAY ==
--- NOTE | 2025-01-17 08:49 | XR_ITS ---
FINAL REPORT CLINICAL HISTORY: Right knee pain COMPARISON: 02/11/2022 FINDINGS: RIGHT KNEE Four views show no evidence of an acute, displaced fracture or dislocation of the visualized bony architecture. There are mild degenerative changes of the medial compartment, similar to the prior exam. There are changes of osteopenia. IMPRESSION: Degenerative changes without acute abnormality. Reviewed, Interpreted and Dictated by Yasmine King MD Transcribed by Kassie Anne Authenticated and [facility]
== END 2025-01-17 23:59 | disposition home or self-care (01) ==
LOC: RAD 08:47
PROVIDERS: PCP Nurse Practitioner Family; Visit Provider Nurse Practitioner Family
DX: M17.11 Unilateral primary osteoarthritis, right knee (principal)
CPT/HCPCS: 73564

== ENCOUNTER 2025-01-25 08:29 | Outpatient (CLI) | payer MEDICARE, SELFPAY ==
--- NOTE | 2025-01-25 09:15 | XR_ITS ---
FINAL REPORT TECHNIQUE: Bone densitometry calculations of the lumbar spine and left hip were obtained. CLINICAL HISTORY: Osteopenia on Knee XR COMPARISON: None FINDINGS: Using L1-4, the bone mineral density of the spine is 1.171 g/cm2, corresponding to T-score of 1.1. Using the left hip, the bone mineral density of the femoral neck is 0.835 g/cm2, corresponding to a T-score of -0.9. Using the right hip, the bone mineral density of the femoral neck is 0.735 g/cm?, corresponding to a T-score of -1.0. NOTE: T-score: Standard deviation compared with peak bone mass of young adult mean. *Following the recommendations of the International Society of Bone densitometry, classification of hip BMD is based on the lower of two T-scores; total hip or femoral neck. IMPRESSION: Diminished bone mineral density of the right hip consistent with osteopenia. Normal bone mineral density of the left hip and lumbar spine. Reviewed, Interpreted and Dictated by Chris Núñez MD Transcribed by Cyndie Smith Authenticated and [facility]
== END 2025-01-25 23:59 | disposition home or self-care (01) ==
LOC: RAD 08:30
PROVIDERS: PCP Nurse Practitioner Family; Visit Provider Nurse Practitioner Family
DX: M85.851 Other specified disorders of bone density and structure, right thigh (principal); M85.869 Other specified disorders of bone density and structure, unspecified lower leg
CPT/HCPCS: 77080

== ENCOUNTER 2025-01-30 13:05 | Outpatient (POV) | payer MEDICARE, SELFPAY ==
[2025-01-30 13:18] VITALS: BP 140/83; PULSE 75; RESP 18; O2SAT 97; BMI 36.1
--- NOTE | 2025-01-30 13:24 | EXP.PAIN.SOA ---
[facility] Disclaimer: The information contained in this section may have been updated after the patient was seen, as this information can be updated by other users. Medical History Sinusitis Acute bronchitis Chest pain Family History Other No significant family history Social History Smoking Status: Never smoker alcohol intake: never substance use type: former substance user and opiates current occupational status: other Travel in the last 8 weeks?: None household members: spouse housing: house current occupational exposures/hazards: No caffeine: Yes PM Subjective & Objective Subjective Subjective:: Patient is a pleasant 64-year-old female who presents today for worsening pain. She rates her pain a 7 out of 10. She denies any new falls or injuries. She does state that she still has her chronic low back pain and right knee pain. Patient has recently seen Dr. Salcedo here at [facility] for the right knee for possible gel injections. She states that she was told that these are not covered by insurance and that they did discuss with her the possibility of doing an RSI or an ablation to the knee with our office. Patient does state that she is interested in this option. Patient does state the chronic pain from her low back that radiates down the entire extremity on the right side including her knee is constant and is interfering with her ability perform activities of daily living such as cooking and cleaning. Patient did previously have a right transforaminal L4-L5 L5-S1 epidural back in October that did provide 85 to 90% improvement. She does feel like this has officially worn off. Patient does also make mention that they are sending her to an arthritis specialist in [place]. Patient is currently managed from our office with diclofenac 75 mg twice a day, gabapentin 100 mg 3 times a day and [place] 5 mg 3 times a day. She denies any side effects. Her Juan Luis has been reviewed and is appropriate. Review of Systems: General: No recent weight changes, no fever, no sleep disturbances Respiratory: No cough, no shortness of air, no recurring pulmonary infections Cardiovascular/peripheral vascular: No chest pain, no palpitations, no edema, no shortness of breath Gastrointestinal: No new onset incontinence, normal bowel movements reported Genitourinary: No new onset incontinence Musculoskeletal: Low back pain, right leg pain, right knee pain Psychiatric: [Normal mood/affect] Neurological: [Denies weakness in extremities], [denies balance issues] Pain at rest (0-10 scale): 7 Objective Objective:: Physical Exam: General: Alert and oriented x3, no acute distress, pleasant and cooperative Lungs: Respirations even and unlabored, symmetrical chest expansion Eyes: PERRL Musculoskeletal: Flexion and extension of lumbar [spine] somewhat guarded secondary to pain, [antalgic gait noted] positive right leg raise with decreased sensation to light touch and decreased reflexes Neurological: Speech clear, no gross sensory deficit Has patient had previous pain injection?: No Conservative treatment options previously tried: Home exercise plan Length of treatment: Longer than 12 weeks Meds Home Medications and Allergies Home Medications ?Medication ?Instructions ?Recorded ?Confirmed ?Type naproxen 500 mg tablet 500 mg PO BID Pain #0 tabs 04/07/22 01/30/25 Rx furosemide 20 mg tablet See Rx Instructions .Route 12/04/22 01/30/25 History .COMPLEX Fluid albuterol sulfate 90 mcg/actuation 2 puff inhalation Q6H PRN 02/15/24 01/30/25 Rx aerosol inhaler (Ventolin HFA) shortness of breath or wheezing #6.7 grams lidocaine 5 % topical patch 1 patch topical DAILY #30 ea 05/05/24 01/30/25 Rx methocarbamol 750 mg tablet 1,500 mg (2 x 750 mg) PO TID 5 05/05/24 01/30/25 Rx days #30 tabs diclofenac sodium 75 mg 75 mg PO BID #60 tabs 11/09/24 01/30/25 Rx tablet,delayed release gabapentin 100 mg capsule 100 mg PO TID #90 caps 11/09/24 01/30/25 Rx hydrocodone 5 mg-acetaminophen 325 1 tab PO TID #90 tabs 12/26/24 01/30/25 Rx mg tablet lisinopril 5 mg tablet See Rx Instructions .Route 01/13/25 01/30/25 Rx .COMPLEX #90 tabs omeprazole 20 mg capsule,delayed See Rx Instructions .Route 01/13/25 01/30/25 Rx release .COMPLEX #90 caps New Prescriptions to Start Prescriptions: Allergies Allergy/AdvReac Type Severity Reaction Status Date / Time No Known Allergies Allergy Verified 01/25/25 09:16 Assessment and Plan *Assessment and plan (1) Degenerative joint disease (DJD) of lumbar spine: Status: Chronic Qualifiers: Spinal osteoarthritis complication: with radiculopathy Qualified Code(s): M47.26 - Other spondylosis with radiculopathy, lumbar region Category: Medical Code(s): M47.816 - Spondylosis without myelopathy or radiculopathy, lumbar region (2) Lumbar radiculopathy: Status: Chronic Category: Medical Code(s): M54.16 - Radiculopathy, lumbar region (3) Right knee pain: Status: Acute Category: Medical Code(s): M25.561 - Pain in right knee Plan Patient is experiencing worsening pain in her low back with symptoms radiating down her entire right leg. Patient had limited range of motion of her lumbar spine along with a positive right leg raise and decreased sensation to light touch and decreased reflexes during today's exam. I have discussed with the patient that they may benefit from a transforaminal epidural steroid injection. Risk and benefits were discussed with the patient and she would like to proceed forward with this plan of care. Patient is not on any blood thinners. Patient has continued conservative treatment including oral medications, heat and ice, topicals, at home stretching exercise for longer than 12 weeks. Patient had her last transforaminal back in October that did provide 85 to 90% improvement and has lasted up until the last week or so. Patient has had chronic pain in her low back that does radiate down this extremity for longer than 6 months. We will schedule the patient for a right transforaminal epidural steroid injection L4-L5 and L5-S1. I did also discuss with the patient that unfortunately we are unable to do the RFA's anymore as they were no longer covered by insurance. Patient was counseled that I would recommend she call her insurance company and see whether or not if the gel injections are covered. We will reach out to orthopedic office here at [facility] and confirm that they are aware that we are unable to do the RFA's due to insurance changes and also verify that they are still doing gel injections. We will follow-up with this patient regarding this at her upcoming visit. I will also refill her medications today. Patient has been instructed to contact the clinic with any concerns before the next appointment. Dr. Abad has reviewed this note and agrees with this plan of care. This note was dictated using voice recognition software and make contain errors or omissions.
== END 2025-01-30 23:59 | disposition home or self-care (01) ==
PROVIDERS: PCP Nurse Practitioner Family; Visit Provider Nurse Practitioner Family
DX: M47.26 Other spondylosis with radiculopathy, lumbar region (principal); M25.561 Pain in right knee; Z79.891 Long term (current) use of opiate analgesic; Z79.899 Other long term (current) drug therapy
CPT/HCPCS: 99212; G0463

== ENCOUNTER 2025-02-20 10:19 | Outpatient (POV) | payer MEDICARE, SELFPAY ==
[2025-02-20 10:40] VITALS: BP 102/69; PULSE 85; RESP 18; O2SAT 98; BMI 36.1
--- NOTE | 2025-02-20 10:43 | EXP.PAIN.SOA ---
[facility] Disclaimer: The information contained in this section may have been updated after the patient was seen, as this information can be updated by other users. Medical History Sinusitis Acute bronchitis Chest pain Family History Other No significant family history Social History Smoking Status: Never smoker alcohol intake: never substance use type: former substance user and opiates current occupational status: other Travel in the last 8 weeks?: None household members: spouse housing: house current occupational exposures/hazards: No caffeine: Yes PM Subjective & Objective Subjective Subjective:: Patient is a pleasant 64-year-old female who presents today for insurance denial of her epidural. Patient rates her pain today a 7 out of 10. Patient denies any new falls or injuries. She does state the pain is constant and interfering with her ability perform activities of daily living such as cooking and cleaning. Patient states that she is just in terrible pain and that some days are a little bit better however anymore it just seems like it is a constant toothache sensation that is interfering with every activity. Patient states that her current medicines just are not codeine at. Patient is currently managed with diclofenac 75 mg twice a day, gabapentin 100 mg 3 times a day and [place] 5 mg 3 times a day. Patient is asking if we can go up on her pain medication. Patient states she still has the numbness and tingling that radiates down the entire right extremity including her right knee. Patient is still scheduled to see the arthritis specialist in [place]. Her Juan Luis has been reviewed and is appropriate. Review of Systems: General: No recent weight changes, no fever, no sleep disturbances Respiratory: No cough, no shortness of air, no recurring pulmonary infections Cardiovascular/peripheral vascular: No chest pain, no palpitations, no edema, no shortness of breath Gastrointestinal: No new onset incontinence, normal bowel movements reported Genitourinary: No new onset incontinence Musculoskeletal: Low back pain, right leg pain, right knee pain Psychiatric: [Normal mood/affect] Neurological: [Denies weakness in extremities], [denies balance issues] Pain at rest (0-10 scale): 7 Objective Objective:: Physical Exam: General: Alert and oriented x3, no acute distress, pleasant and cooperative Lungs: Respirations even and unlabored, symmetrical chest expansion Eyes: PERRL Musculoskeletal: Flexion and extension of lumbar [spine] somewhat guarded secondary to pain, [antalgic gait noted] positive right leg raise with decreased sensation to light touch and decreased reflexes Neurological: Speech clear, no gross sensory deficit Has patient had previous pain injection?: No Conservative treatment options previously tried: Home exercise plan Length of treatment: Longer than 12 weeks Meds Home Medications and Allergies Home Medications ?Medication ?Instructions ?Recorded ?Confirmed ?Type naproxen 500 mg tablet 500 mg PO BID Pain #0 tabs 04/07/22 01/30/25 Rx furosemide 20 mg tablet See Rx Instructions .Route 12/04/22 01/30/25 History .COMPLEX Fluid albuterol sulfate 90 mcg/actuation 2 puff inhalation Q6H PRN 02/15/24 01/30/25 Rx aerosol inhaler (Ventolin HFA) shortness of breath or wheezing #6.7 grams lidocaine 5 % topical patch 1 patch topical DAILY #30 ea 05/05/24 01/30/25 Rx methocarbamol 750 mg tablet 1,500 mg (2 x 750 mg) PO TID 5 05/05/24 01/30/25 Rx days #30 tabs lisinopril 5 mg tablet See Rx Instructions .Route 01/13/25 01/30/25 Rx .COMPLEX #90 tabs omeprazole 20 mg capsule,delayed See Rx Instructions .Route 01/13/25 01/30/25 Rx release .COMPLEX #90 caps diclofenac sodium 75 mg 75 mg PO BID #60 tabs 01/30/25 Rx tablet,delayed release gabapentin 100 mg capsule 100 mg PO TID #90 caps 01/30/25 Rx hydrocodone 5 mg-acetaminophen 325 1 tab PO TID #90 tabs 01/30/25 Rx mg tablet New Prescriptions to Start Prescriptions: Allergies Allergy/AdvReac Type Severity Reaction Status Date / Time No Known Allergies Allergy Verified 01/25/25 09:16 Assessment and Plan *Assessment and plan (1) Chronic pain syndrome: Status: Acute Category: Medical Code(s): G89.4 - Chronic pain syndrome (2) Osteoarthritis of right knee: Status: Acute Qualifiers: Osteoarthritis type: primary Qualified Code(s): M17.11 - Unilateral primary osteoarthritis, right knee Category: Medical Code(s): M17.11 - Unilateral primary osteoarthritis, right knee (3) Spinal stenosis of lumbar region: Status: Acute Category: Medical Code(s): M48.061 - Spinal stenosis, lumbar region without neurogenic claudication (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 Patient had limited range of motion of her lumbar spine along with a positive right leg raise and decreased sensation to light touch and decreased reflexes during today's exam. I have discussed with the patient that they may benefit from a transforaminal epidural steroid injection. Risk and benefits were discussed with the patient and she would like to proceed forward with this plan of care. Patient is not on any blood thinners. Patient has had this injection in the past and did get 85 to 90% improvement that lasted longer than 2 months if not going towards 3. Patient does state that it did definitely take down the severity and the numbness and tingling into that extremity. Patient did have improved function and was able to do more activity with overall decreased pain. Patient is not currently interested in surgical intervention for her back. I did discuss with her that I will order an advanced MRI without contrast of her lumbar spine and plan on sending her for evaluation by neurosurgery. We will send her to [facility] following her advanced imaging. We did also discuss the possibility in future and that she may be a beneficial candidate of a intrathecal pain pump trial. Risk and benefits and educational handouts were given at today's visit. I will order the patient a psychological evaluation and if she is deemed an appropriate candidate we will proceed forward with the pump trial at a later date. Patient agrees with this plan of care. We will schedule the patient for a right transforaminal epidural steroid injection L4-L5 and L5-S1. I did discuss with the patient that we would not be able to do anything stronger on her medications currently. Patient did state that she may go and talk to her primary care because of the severity. We will continue to follow-up on this. Patient has been instructed to contact the clinic with any concerns before the next appointment. Dr. Abad has reviewed this note and agrees with this plan of care. This note was dictated using voice recognition software and make contain errors or omissions.
--- OUTSIDE RECORDS SUMMARY | 2025-02-20 10:43 | XMS_ITS | Encounter Summary ---
Author Organization [facility] Address [address] [place] [address] Care Team Providers Care Folder Seamer Automatic Name Role Phone Lily Davies MD Primary Care Provider [phone] Nya Segura APRN Unavailable [phone] Ronal Duong APRN Primary Care Provider [phone] Reason for Referral * Consultation (Routine) - Closed Specialty Diagnoses / Procedures Referred By Geo collazo Referred To Contact Neurosurgery Diagnoses Herniated lumbar intervertebral disc Ronal Duong APRN [address] [place] [address] Phone: tel: fax: Referral ID Status Reason Start Date Expiration Date V isits Requested Visits Authorized [id number] Closed Specialty Services Required 06/27/2021 12/27/2022 1 1 Encounter Details Date Type Department Care Team (Latest Contact Info) Description 06/27/2021 Community [facility] [address] [place] [address] Ronal Duong APRN [address] [place] [address] Herniated lumbar intervertebral disc (Primary Dx) Social History Tobacco Use Types Packs/Day Years Used Date Smoking Tobacco: Never Comments Unknown Sex and Gender Information Value Date Recorded Sex Assigned at Not on file Legal Sex Female 6:52 PM EDT Gender Identity Not on file Sexual Orientation Not on file documented as of this encounter Plan of Treatment Scheduled Referrals Name Type Priority Associated Diagnoses Orde r Schedule Ambulatory Referral to Neurosurgery Outpatient Referral Routine Herniated lumbar intervertebral disc Expected: 06/27/2021 (Approximate), Expires: 09/27/2021 documented as of this encounter Visit Diagnoses Diagnosis Herniated lumbar intervertebral disc- Primary Displacement of lumbar intervertebral disc without myelopathy documented in this encounter Care Teams Folder Seamer Automatic Relationship Specialty Start Date End Date Lily Davies MD [address] [facility] [address] [place] [address] PCP - General 01/11/21 08/05/21 Ronal Duong APRN [address] [place] [address] PCP - General 08/06/21 Nya Segura APRN [address] [facility] [address] [place] [address] Nurse Practitioner Neurosurgery 08/06/21 documented as of this encounter
--- OUTSIDE RECORDS SUMMARY | 2025-02-20 10:43 | XMS_ITS | Clinical Summary ---
Author Organization [facility] Address [address] [place] [address] Care Team Providers Care Shuttle Driver Name Role Phone Nya Segura APRN Unavailable [phone] Ronal Duong APRN Primary Care Provider [phone] Allergies No known active allergies Medications phentermine (Adipex-P) 37.5 MG tablet 1 Active furosemide (Lasix) 20 MG tablet 1 Active omeprazole (PriLOSEC) [address] capsule 1 Active lisinopril 5 MG tablet 1 Active gabapentin (Neurontin) 100 MG capsule Take 100 mg by mouth 3 (three) times a day. 2 Active hydroCHLOROthia zide (HYDRODiuril) 25 MG tablet Take 1 tablet daily 1 Active meloxicam (Mobic) 15 MG tablet TAKE 1 TABLET BY MOUTH DAILY 1 Active naproxen (Naprosyn) 500 MG tablet 1 Active phentermine 37.5 MG capsule TAKE 1 CAPSULE BY MOUTH ONCE DAILY 30 MINUTES BEFORE OR 1-2 HOURS AFTER BREAKFAST 2 Active DULoxetine (Cymbalta) [address] capsule TAKE 1 CAPSULE BY MOUTH EVERY DAY 0 Active fluticasone (Flonase) 50 MCG/ACT nasal spray USE 1 SPRAY IN EACH NOSTRIL ONCE DAILY. 0 Active Active Problems Problem Noted Date Diagnosed Date Severe obesity (BMI 35.0-39.9) with comorbidity 11/05/2021 Immunizations Immunization Administration Dates Next Due Hep B, adult 03/30/2019,10/18/2018,09/15/2018 Influenza, injectable, quadr ivalent, preservative free 10/04/2018 Family History Medical History Relation Name Comments Conversions - Other Father Patient' s father is Other cancer Father Relation Name Status Comments Father Social History Tobacco Use Types Packs/Day Years Used Date Smoking Tobacco: Never Smokeless Tobacco: Never Alcohol Use Standard Drinks/Week Comments Never 0 (1 standard drink = 0.6 oz pur e alcohol) Comments Unknown Sex and Gender Information Value Date Recorded Sex Assigned at Not on file Legal Sex Female 6:52 PM EDT Gender Identity Not on file Sexual Orientation Not on file Last Filed Vital Signs Vital Sign Reading Time Taken Comments Blood Pressure 116/80 11/05/2021 10:55 AM EST Pulse 72 08/06/2021 12:58 PM EST Temperature 36.7 C (98 F) 10/22/2020 9:57 AM EST Respiratory Rate - - Oxygen Saturation 98% 08/06/2021 12:58 PM EST Inhaled Oxygen Concentration - - Weight 95.3 kg (210 lb) 11/05/2021 10:55 AM EST Height 154.9 cm (5' 1 ) 11/05/2021 10:55 AM EST Body Mass Index 39.68 11/05/2021 10:55 AM EST Plan of Treatment Health Maintenance Due Date Last Done Comments [facility]-Bone Density Scan 1960 [facility]-Depression Screening 1959 [facility]-/Child/Adol SDOH Screenings 1960 [facility]- SDOH Screenings 1977 [facility]-Adult SDOH Screenings 1977 [facility]-DTaP,Tdap,and Td Vaccine s (1 - Tdap) 1978 [facility]-Pap Smear 1980 [facility]-Cervical Cancer Screening 1989 [facility]-HPV/Cotest 1989 CT Colonography 2004 FIT-DNA 2004 FIT 2004 FOBT 2004 Sigmoidoscopy 2004 [facility]-Zoster Vaccines (1 of 2) 2009 [facility]-Pneumococcal Vaccine: 50 + Years (2 of 2 - PCV) 07/01/2021 07/01/2020 [id number] Vaccine ( season) 2024 07/22/2021, 12/25/2020, 12/06/2020 [facility]-Influenza Vaccine (Seaso n Ended) 2025 05/18/2021, 07/01/2020, 10/04/2018 Colonoscopy 10/19/2030 10/19/2020 [facility]-Colorectal Cancer Screening 10/19/2030 [facility]-RSV Vaccine: 60+ Years o r (1 - 1-dose 75+ series) 2034 [facility]-Hepatitis A Vaccines Aged Out 02/25/2018 No longer eligible based on patient's age to complete this topic [facility]-Breast Cancer Screening Discontinued 05/02, 04/27/2019, 03/25/2018 HPV Vaccines Aged Out No longer eligi ble based on patient's age to complete this topic [facility]-HIB Vaccines Aged Out No longer e ligible based on patient's age to complete this topic [facility]-IPV Vaccines Aged Out No longer e ligible based on patient's age to complete this topic [facility]-Rotavirus Vaccines Aged Out No lo nger eligible based on patient's age to complete this topic Procedures Procedure Name Priority Date/Time Associated Diagnosis Comments COLONOSCOPY 10/19/2020 MAMMOGRAPHY BREAST SCREENING TOMOSYNTHESIS BILATERAL Routine 05/24/2020 12:00 AM EDT from Last 3 Months or Most Recently Relevant to Health Maintenance Results * COLONOSCOPY (10/19/2020) Anatomical Region Laterality Modality Endoscopy Narrative 10/19/2020 Ordered by an unspecified provider. us Historical Provider GI PROCEDURE ORDERABLES F inal Result * Mammography Breast Screening Tomosynthesis Bilateral (05/24/2020 12:00 AM EDT) Anatomical Region Laterality Modality Breast Bilateral Mammography Impressions 05/25/2020 10:12 AM EDT BI-RADS Assessment Category 1: Negative. RECOMMENDATION: Routine screening mammogram in 1 year. COMMUNICATION: The results and recommendations will be sent to the patient in a printed lay language version of the imaging report. The mammogram was read with the assistance of CAD and tomosynthesis. Page 1 of 2 Patient Name:Machelle Man : 1960 Age: 59 Gender: femaleDate of Service: 05/24/2020 eferring Phy:Lily Goncalves M.D.Account: [id number] Dictated By: Jeremiah Bhandari M.D. Verified By: Jeremiah Bhandari M.D. on 05/25/2020 at 10:06:41 AM Page 2 of 2 Narrative 05/25/2020 10:12 AM EDT REQUESTING PHYSICIAN: LILY GONCALVES REASON FOR EXAMINATION/PROCEDURE: screen EXAMINATION / PROCEDURE: ROCIO BILATERAL SCREENING May 24 2020 - 08:03; Screening Mamm w/cad May 24 2020 - 08:03; HISTORY: Patient is 59 years old and i s seen for screening mammography. The patient has the following family history of breast cancer: paternal aunt, at age 50, breast cancer, specified type unknown and paternal aunt, at age 50, breast cancer, specified type unknown. COMPARISON : The present examination has been compared to prior imaging studies performed at [facility] on 03/25/2018, 04/13/2018 and 04/27/2019. FINDINGS: MAMMOGRAM There are scattered areas of fibroglandular density. No masses, brian picious microcalcifications or architectural distortion are evident. IMPRESSION: BI-RADS Assessment Category 1: Negative. RECOMMENDATION: Routine screening mammogram in 1 year. COMMUNICATION: The results and recommendations will be se nt to the patient in a printed lay language version of the imaging report. The mammogram was read with the assistance of CAD and tomosynthesis. Read By: JEREMIAH BHANDARI M.D. Signed By: JEREMIAH BHANDARI M.D. on 05/25/2020 at 10:11:51 Verified by: JEREMIAH BHANDARI M.D. on May 25 2020 10:11A Transcribed by: [facility] on May 25 2020 10:11A Dictated by: JEREMIAH BHANDARI M.D. on May 25 2020 10:11A Patient Name:Machelle Man : 1960 Age: 59 Gender: femaleDate of Service: 05/24/2020 eferring Phy:Lily Goncalves M.D.Account: [id number] Lily Goncalves M.D. [facility] [address] [id number] FINAL REPORT PROCEDURE: Tomosynthesis Bilateral Screening - bilateral , Screening Mammogram With Cad - bilateral HISTORY: Patient is 59 years old and is seen for screening mammography. The patient has the following family history of breast cancer: paternal aunt, at age 50, breast cancer, specified type unknown and paternal aunt, at age 50, breast cancer, specified type unknown. COMPARISON: The present examination has been compared to prior imaging studies performed at [facility] on 03/25/2018, 04/13/2018 and 04/27/2019. FINDINGS: MAMMOGRAM There are scattered areas of fibroglandular density. No masses, suspicious microcalcifications or architectural distortion are evident. Procedure Note Jeremiah Bhandari MD - 01/06/2021 REQUESTING PHYSICIAN: LILY GONCALVES REASON FOR EXAMINATION/PROCEDURE: screen EXAMINATION / PROCEDURE: ROCIO BILATERAL SCREENING May 24 2020 - 08:03; Screening Mamm w/cad May 24 2020:03; HISTORY: Patient is 59 years old and i s seen for screening mammography. The patient has the following family history of breast cancer: paternal aunt, at age 50, breast cancer, specified type unknown and paternal aunt, at age 50, breast cancer, specified type unknown. COMPARISON : The present examination has been compared to prior imaging studies performed at [facility] on 03/25/2018, 04/13/2018 and 04/27/2019. FINDINGS: MAMMOGRAM There are scattered areas of fibroglandular density. No masses, brian picious microcalcifications or architectural distortion are evident. IMPRESSION: BI-RADS Assessment Category 1: Negative. RECOMMENDATION: Routine screening mammogram in 1 year. COMMUNICATION: The results and recommendations will be se nt to the patient in a printed lay language version of the imaging report. The mammogram was read with the assistance of CAD and tomosynthesis. Read By: JEREMIAH BHANDARI M.D. Signed By: JEREMIAH BHANDARI M.D. on 05/25/2020 at 10:11:51 Verified by: JEREMIAH BHANDARI M.D. on May 25 2020 10:11A Transcribed by: [facility] on May 25 2020 10:11A Dictated by: JEREMIAH BHANDARI M.D. on May 25 2020 10:11A Patient Name:Machelle Man : 1960 Age: 59 Gender: femaleDate of Service:05/24/2020 eferring Phfelipe:Lily Goncalves M.D.Account: [id number] Lily Goncalves M.D. [facility] [address] [place] [id number] FINAL REPORT PROCEDURE: Tomosynthesis Bilateral Screening - bilateral , Screening Mammogram WithCad - bilateral HISTORY: Patient is 59 years old and is seen for screening mammography. Thepatient has the following family history of breast cancer: paternal aunt, at age 50, breast cancer, specified typeunknown and paternal aunt, at age 50, breast cancer, specified type unknown. COMPARISON: The present examination has been compared to prior imaging studiesperformed at [facility] on 03/25/2018, 04/13/2018 and 04/27/2019. FINDINGS: MAMMOGRAM There are scattered areas of fibroglandular density. No masses, suspicious microcalcifications or architectural distortion areevident. IMPRESSION: BI-RADS Assessment Category 1: Negative. RECOMMENDATION: Routine screening mammogram in 1 year. COMMUNICATION: The results and recommendations will be sent to the patient in a printedlay language version of the imaging report. The mammogram was read with the assistance of CAD and tomosynthesis. Page 1 of 2 Patient Name:Machelle Man : 1960 Age: 59 Gender: femaleDate of Service:05/24/2020 eferring Phy:Lily Goncalves M.D.Account: [id number] Dictated By: Jeremiah Bhandari M.D. Verified By: Jeremiah Bhandari M.D. on 05/25/2020 at 10:06:41 AM Page 2 of 2 Lily Goncalves MD IMG BI PROCEDURES Final Resu lt from Last 3 Months or Most Recently Relevant to Health Maintenance Insurance [employer] [id number] [employer] Care Teams Shuttle Driver Relationship Specialty Start Date End Date Ronal Duong APRN [address] [place] [address] [place] [address] PCP - General 08/06/21 Nya Segura APRN [address] [facility] [address] [place] [address] Nurse Practitioner Neurosurgery 08/06/21
== END 2025-02-20 23:59 | disposition home or self-care (01) ==
LOC: SC.PAIN 10:20
PROVIDERS: PCP Nurse Practitioner Family; Visit Provider Nurse Practitioner Family
DX: G89.4 Chronic pain syndrome (principal); M17.11 Unilateral primary osteoarthritis, right knee; M47.26 Other spondylosis with radiculopathy, lumbar region; M48.061 Spinal stenosis, lumbar region without neurogenic claudication; Z79.899 Other long term (current) drug therapy; Z79.891 Long term (current) use of opiate analgesic
CPT/HCPCS: 99212; G0463

== ENCOUNTER 2025-03-13 08:43 | Outpatient (CLI) | payer MEDICARE, SELFPAY ==
--- NOTE | 2025-03-13 08:52 | MR_ITS ---
FINAL REPORT TECHNIQUE: Multiplanar MR without contrast CLINICAL HISTORY: LBP pain and numbness down right leg x 1 year no injury COMPARISON: 06/18/2021 FINDINGS: Chronic L1 compression fracture, similar to the prior exam. Moderate dextroscoliosis. No subluxation. T12-L1: Mild annular disc bulge, stable. Mild bilateral neural foraminal narrowing. L1-2: Mild annular disc bulge, stable. Mild bilateral neural foraminal narrowing. L2-3: Moderate annular disc bulge. Mild central canal stenosis. Moderate neural foraminal narrowing. L3-4: Moderate annular disc bulge and facet arthropathy. Abkr-wg-rgedqblw central canal stenosis, greater on the right and progressed since previous. Moderate bilateral neural foraminal narrowing. L4-5: Moderate annular disc bulge. Moderate facet overgrowth. Mild central canal stenosis, similar to prior. Moderate bilateral neural foraminal narrowing. L5-S1: Mild annular disc bulge and facet arthropathy. Mild central canal stenosis and neural foraminal narrowing, unchanged. IMPRESSION: Multilevel degenerative changes, overall similar with the exception of at L3-4. Reviewed, Interpreted and Dictated by Yasmine King MD Transcribed by Jessy Koo Authenticated and [facility]
--- OUTSIDE RECORDS SUMMARY | 2025-03-13 08:53 | XMS_ITS | Encounter Summary ---
Author Organization [facility] Address [address] [place] [address] Care Team Providers Care Voice And Data Technician Name Role Phone Lily Davies MD Primary Care Provider [phone] Nya Segura APRN Unavailable [phone] Ronal Duong APRN Primary Care Provider [phone] Reason for Referral * Consultation (Routine) - Closed Specialty Diagnoses / Procedures Referred By Geo collazo Referred To Contact Neurosurgery Diagnoses Herniated lumbar intervertebral disc Ronal Duong APRN [address] [place] [address] Phone: tel: fax: Referral ID Status Reason Start Date Expiration Date V isits Requested Visits Authorized [id number] Closed Specialty Services Required 06/27/2021 12/27/2022 1 1 Encounter Details Date Type Department Care Team (Latest Contact Info) Description 06/27/2021 Community [facility] [address] [place] [address] Ronal Duong APRN [address] [place] [address] Herniated lumbar intervertebral disc (Primary Dx) Social [...] myelopathy documented in this encounter Care Teams Voice And Data Technician Relationship Specialty Start Date End Date Lily Davies MD [address] [facility] [address] [place] [address] PCP - General 01/11/21 08/05/21 Ronal Duong APRN [address] [place] [address] PCP - General 08/06/21 Nya Segura APRN [address] [facility] [address] [place] [address] Nurse Practitioner Neurosurgery 08/06/21 documented as of this encounter
--- OUTSIDE RECORDS SUMMARY | 2025-03-13 08:53 | XMS_ITS | Clinical Summary ---
Author Organization [facility] Address [address] [place] [address] Care Team Providers Care Underwriting Specialist Name Role Phone Nya Segura APRN Unavailable [phone] Ronal Duong APRN Primary Care Provider [phone] Allergies No known active allergies Medications phentermine [...] (2 of 2 - PCV) 07/01/2021 07/01/2020 [id number] Vaccine ( season) 2024 07/22/2021, 12/25/2020, 12/06/2020 [facility]-Influenza Vaccine (#1) 05/01/202505/18, 07/01/2020, 10/04/2018 Colonoscopy 10/19/2030 10/19/2020 [facility]-Colorectal Cancer [...] of Service: 05/24/2020 eferring Phy:Lily Goncalves M.D.Account: [id number] Dictated By: Jeremiah Bhandari M.D. Verified By: [...] compared to prior imaging studies performed at [facility] on 03/25/2018, 04/13/2018 and 04/27/2019. FINDINGS: MAMMOGRAM [...] on May 25 2020 10:11A Transcribed by: [facility] on May 25 2020 10:11A Dictated by: JEREMIAH BHANDARI M.D. on May 25 2020 10:11A Patient Name:Machelle Man : 1960 Age: 59 Gender: femaleDate of Service: 05/24/2020 eferring Phy:Lily Goncavles M.D.Account: [id number] Lily Goncalves M.D. [facility] [address] [place] [address] FINAL REPORT PROCEDURE: Tomosynthesis Bilateral Screening - [...] compared to prior imaging studies performed at [facility] on 03/25/2018, 04/13/2018 and 04/27/2019. FINDINGS: MAMMOGRAM [...] compared to prior imaging studies performed at [facility] on 03/25/2018, 04/13/2018 and 04/27/2019. FINDINGS: MAMMOGRAM [...] M.D. on May 25 2020 10:11A Patient Name:Mcahelle Man : 1960 Age: 59 Gender: femaleDate of Service:05/24/2020 eferring Phy:Lily Goncalves M.D.Account: [id number] Lily Goncalves M.D. [facility] [address] [place] [address] FINAL REPORT PROCEDURE: Tomosynthesis Bilateral Screening - [...] been compared to [facility], 04/13/2018 and 04/27/2019. FINDINGS: MAMMOGRAM [...] femaleDate of Service:05/24/2020 eferring Phfelipe:Lily Goncalves M.D.Account: [id number] Dictated By: Jeremiah Bhandari M.D. Verified By: Jeremiah Bhandari M.D. on 05/25/2020 at 10:06:41 AM Page 2 of 2 Lily Goncalves MD IMG BI PROCEDURES Final Resu lt from Last 3 Months or Most Recently Relevant to Health [place] [id number] [facility] Care Teams Underwriting Specialist Relationship Specialty Start Date End Date Ronal Duong APRN [address] [place] [address] [place] [address] PCP - General 08/06/21 Nya Segura APRN [address] [place] [address] Nurse Practitioner Neurosurgery 08/06/21
== END 2025-03-13 23:59 | disposition home or self-care (01) ==
LOC: RAD 08:44
PROVIDERS: PCP Nurse Practitioner Family; Visit Provider Nurse Practitioner Family
DX: M47.816 Spondylosis without myelopathy or radiculopathy, lumbar region (principal)
CPT/HCPCS: 72148

== ENCOUNTER 2025-03-15 14:36 | Outpatient (POV) | payer MEDICARE, SELFPAY ==
--- OUTSIDE RECORDS SUMMARY | 2025-03-15 14:39 | XMS_ITS | Clinical Summary ---
Author Organization Healthcare Address [address] [place] [address] Care Team Providers Care Gyroscopic Instrument Mechanic Name Role Phone Nya Segura APRN Unavailable [phone] Ronal Duong APRN Primary Care Provider [phone] Allergies No known active allergies Medications phentermine [...] (2 of 2 - PCV) 07/01/2021 07/01/2020 [id number] Vaccine ( season) 2024 07/22/2021, 12/25/2020, 12/06/2020 [...] of Service: 05/24/2020 eferring Phy:Lily Goncalves M.D.Account: [id number] Dictated By: Jeremiah Bhandari M.D. Verified By: [...] compared to prior imaging studies performed at [facility] on 03/25/2018, 04/13/2018 and 04/27/2019. FINDINGS: MAMMOGRAM [...] on May 25 2020 10:11A Transcribed by: [facility] on May 25 2020 10:11A Dictated by: JEREMIAH BHANDARI M.D. on May 25 2020 10:11A Patient Name:Machelle Man : 1960 Age: 59 Gender: femaleDate of Service: 05/24/2020 eferring Phy:Lily Goncalves M.D.Account: [id number] Lily Goncalves M.D. [facility] [address] [place] [id number] FINAL REPORT PROCEDURE: Tomosynthesis Bilateral Screening - [...] compared to prior imaging studies performed at [facility] on 03/25/2018, 04/13/2018 and 04/27/2019. FINDINGS: MAMMOGRAM [...] compared to prior imaging studies performed at [facility] on 03/25/2018, 04/13/2018 and 04/27/2019. FINDINGS: MAMMOGRAM [...] femaleDate of Service:05/24/2020 eferring Phy:Lily Goncalves M.D.Account: [id number] Lily Goncalves M.D. [facility] [address] [place] [address] FINAL REPORT PROCEDURE: Tomosynthesis Bilateral Screening - [...] been compared to prior imaging studiesperformed at [facility] on 03/25/2018, 04/13/2018 and 04/27/2019. FINDINGS: MAMMOGRAM [...] femaleDate of Service:05/24/2020 eferring Phfelipe:Lily Goncalves M.D.Account: [id number] Dictated By: Jeremiah Bhandari M.D. Verified By: Jeremiah Bhandari M.D. on 05/25/2020 at 10:06:41 AM Page 2 of 2 Lily Goncalves MD IMG BI PROCEDURES Final Resu lt from Last 3 Months or Most Recently Relevant to Health [place] [id number] [facility] Care Teams Gyroscopic Instrument Mechanic Relationship Specialty Start Date End Date Ronal Duong APRN [address] [place] [address] [place] [address] PCP - General 08/06/21 Nya Segura APRN [address] [place] [address] Nurse Practitioner Neurosurgery 08/06/21
--- OUTSIDE RECORDS SUMMARY | 2025-03-15 14:39 | XMS_ITS | Encounter Summary ---
Author Organization [facility] Address [address] [place] [address] Care Team Providers Care Telecasting Technician Name Role Phone Lily Daives MD Primary Care Provider [phone] Nya Segura APRN Unavailable [phone] Ronal Duong APRN Primary Care Provider [phone] Reason for Referral * Consultation (Routine) - Closed Specialty Diagnoses / Procedures Referred By Geo collazo Referred To Contact Neurosurgery Diagnoses Herniated lumbar intervertebral disc Ronal Duong APRN [address] [place] [address] Phone: tel: fax: Referral ID Status Reason Start Date Expiration Date V isits Requested Visits Authorized [id number] Closed Specialty Services Required 06/27/2021 12/27/2022 1 1 Encounter Details Date Type Department Care Team (Latest Contact Info) Description 06/27/2021 Community [facility] [address] [place] [address] Ronal Duong APRN [address] [place] [address] Herniated lumbar intervertebral disc (Primary Dx) Social [...] myelopathy documented in this encounter Care Teams Telecasting Technician Relationship Specialty Start Date End Date Lily Davies MD [address] [facility] [address] [place] [address] PCP - General 01/11/21 08/05/21 Ronal Duong APRN [address] [place] [address] PCP - General 08/06/21 Nya Segura APRN [address] [facility] [address] [place] [address] Nurse Practitioner Neurosurgery 08/06/21 documented as of this encounter
[2025-03-15 15:03] VITALS: BP 125/49; PULSE 70; RESP 18; O2SAT 97; BMI 36.1
--- NOTE | 2025-03-15 16:09 | EXP.PAIN.SOA ---
[facility] Disclaimer: The information contained in this section may have been updated after the patient was seen, as this information can be updated by other users. Medical History Sinusitis Acute bronchitis Chest pain Family History Other No significant family history Social History Smoking Status: Never smoker alcohol intake: never substance use type: former substance user and opiates current occupational status: employed Travel in the last 8 weeks?: None household members: spouse housing: house current occupational exposures/hazards: No caffeine: Yes PM Subjective & Objective Subjective Subjective:: Patient is a pleasant 64-year-old female who presents today for follow-up. She does rate her pain a 7 out of 10. She denies any new falls or injuries. She does states she still has the chronic pain that primarily goes down the one leg. Patient had been submitted for a transforaminal epidural but it was denied by insurance. Patient states she is still interested in this option when she is able to resubmit for it. Patient is currently managed with diclofenac 75 mg twice a day, gabapentin 100 mg 3 times a day and Carrabelle 5 mg 3 times a day. Patient would like us to refill these medications. Patient states she was previously going to see about her primary care or taking over her medications as we were not able to increase the dosage however today she states that she would like us to proceed forward that she has not had any discussion with any other providers. She denies any side effects. Her Juan Luis has been reviewed and is appropriate. Review of Systems: General: No recent weight changes, no fever, no sleep disturbances Respiratory: No cough, no shortness of air, no recurring pulmonary infections Cardiovascular/peripheral vascular: No chest pain, no palpitations, no edema, no shortness of breath Gastrointestinal: No new onset incontinence, normal bowel movements reported Genitourinary: No new onset incontinence Musculoskeletal: Chronic back pain Psychiatric: [Normal mood/affect] Neurological: [Denies weakness in extremities], [denies balance issues] Pain at rest (0-10 scale): 7 Objective Objective:: Physical Exam: General: Alert and oriented x3, no acute distress, pleasant and cooperative Lungs: Respirations even and unlabored, symmetrical chest expansion Eyes: PERRL Musculoskeletal: Flexion and extension of lumbar [spine] somewhat guarded secondary to pain, [antalgic gait noted] Neurological: Speech clear, no gross sensory deficit Has patient had previous pain injection?: No Conservative treatment options previously tried: Home exercise plan Length of treatment: Longer than 12 weeks Meds Home Medications and Allergies Home Medications ?Medication ?Instructions ?Recorded ?Confirmed ?Type naproxen 500 mg tablet 500 mg PO BID Pain #0 tabs 04/07/22 03/15/25 Rx furosemide 20 mg tablet See Rx Instructions .Route 12/04/22 03/15/25 History .COMPLEX Fluid albuterol sulfate 90 mcg/actuation 2 puff inhalation Q6H PRN 02/15/24 03/15/25 Rx aerosol inhaler (Ventolin HFA) shortness of breath or wheezing #6.7 grams lidocaine 5 % topical patch 1 patch topical DAILY #30 ea 05/05/24 03/15/25 Rx methocarbamol 750 mg tablet 1,500 mg (2 x 750 mg) PO TID 5 05/05/24 03/15/25 Rx days #30 tabs lisinopril 5 mg tablet See Rx Instructions .Route 01/13/25 03/15/25 Rx .COMPLEX #90 tabs omeprazole 20 mg capsule,delayed See Rx Instructions .Route 01/13/25 03/15/25 Rx release .COMPLEX #90 caps diclofenac sodium 75 mg 75 mg PO BID #60 tabs 01/30/25 03/15/25 Rx tablet,delayed release gabapentin 100 mg capsule 100 mg PO TID #90 caps 01/30/25 03/15/25 Rx hydrocodone 5 mg-acetaminophen 325 1 tab PO TID #90 tabs 01/30/25 03/15/25 Rx mg tablet New Prescriptions to Start Prescriptions: Allergies Allergy/AdvReac Type Severity Reaction Status Date / Time No Known Allergies Allergy Verified 01/25/25 09:16 Assessment and Plan *Assessment and plan (1) Spinal stenosis of lumbar region: Status: Acute Category: Medical Code(s): M48.061 - Spinal stenosis, lumbar region without neurogenic claudication (2) Degenerative joint disease (DJD) of lumbar spine: Status: Chronic Qualifiers: Spinal osteoarthritis complication: with radiculopathy Qualified Code(s): M47.26 - Other spondylosis with radiculopathy, lumbar region Category: Medical Code(s): M47.816 - Spondylosis without myelopathy or radiculopathy, lumbar region (3) Lumbar radiculopathy: Status: Chronic Category: Medical Code(s): M54.16 - Radiculopathy, lumbar region Plan I will refill her Carrabelle, gabapentin diclofenac and provide a 1 month supply of these medications. Patient will return to clinic in 1 month for reevaluation of symptoms and plan of care. Risks and benefits of the medication have been explained in detail to the patient. The patient does understand the risk of dependence on the medication when given over a prolonged period. Patient has been advised of risks of oversedation with the prescribed medication. Narcan has been offered to the paitent in the event of oversedation. Patient has been advised that a family member should also be educated regarding administration of Narcan. The patient has been advised to consult with his/her primary care provider and pharmacist regarding drug-drug interaction of medications currently prescribed. Patient has been prescribed a controlled substance after being counseled on the medication, medication safety, and possible side effects. Opioid contract was reviewed and signed by the patient, and that they have agreed to all of the terms set forth by our compliance program. A UDS is needed to verify patient's compliance with our office pain contract. This is ordered based off specific treatments related to chronic pain with the potential to abuse certain medications. Patient has been instructed to contact the clinic with any concerns before the next appointment. Dr. Abad has reviewed this note and agrees with this plan of care. This note was dictated using voice recognition software and make contain errors or omissions.
== END 2025-03-15 23:59 | disposition home or self-care (01) ==
PROVIDERS: PCP Nurse Practitioner Family; Visit Provider Nurse Practitioner Family
DX: M48.061 Spinal stenosis, lumbar region without neurogenic claudication (principal); M47.26 Other spondylosis with radiculopathy, lumbar region
CPT/HCPCS: 99212; G0463

== ENCOUNTER 2025-04-19 13:31 | Outpatient (POV) | payer MEDICARE, SELFPAY ==
--- OUTSIDE RECORDS SUMMARY | 2025-04-19 13:35 | XMS_ITS | Clinical Summary ---
Author Organization [facility] ystem Address [address] [place] [address] Care Team Providers Care Packing Room Inspector Name Role Phone Provider, No Known Primary Care Provider Unavail able Allergies No known active allergies Medications traMADol (ULTRAM) 50 MG tabletIndicatio ns:Closed fracture of one rib of left side, initial encounter,Degen erative disc disease, lumbar Take 1 tablet by mouth Every 6 (Six) Hours As Needed for Severe Pain . 15 tablet 11/21/2019 Active lidocaine (Lidoderm) 5 % Place 1 patch on the skin as directed by provider Daily. Remove & Discard patch within 12 hours or as directed by MD 30 patch 11/21/2019 Active Social History Tobacco Use Types Packs/Day Years Used Date Smoking Tobacco: Never Alcohol Use Standard Drinks/Week Comments Not Currently 0 (1 standard drink = 0.6 oz pur e alcohol) Abuse Screen Answer Date Recorded Unsafe at Home or Work/School Not on file Feels Threatened by Someone? Not on file 07/2023 Does Anyone Keep You from Co ntacting Others or Doint Things Outside the Home? Not on file 06/11/2023 Physical Sign of Abuse Present Not on file 1 Housing Stability Answer Date Recorded Current Living Arrangements Not on file 05/31 Potentially Unsafe Housing Conditions Not on diane e 06/11/2023 Family and Community Support Answer Jordon e Recorded Help with Day-to-Day Activities Not on file 06/11/2023 Lonely or Isolated Not on file 06/11/2023 Employment Answer Date Recorded Do you want help finding or keeping work or a anurag b? Not on file 06/11/2023 Disabilities Answer Date Recorded Concentrating, Remembering, or Making Decisions Difficulty Not on file 06/11/2023 Doing Errands Independently Difficulty Not on fi le 06/11/2023 Education Answer Date Recorded Help with school or training? Not on file Preferred Language Not on file 06/11/2023 Comments No Sex and Gender Information Value Date Recorded Sex Assigned at Not on file Legal Sex Female 1:45 PM EDT Gender Identity Not on file Sexual Orientation Not on file Last Filed Vital Signs Vital Sign Reading Time Taken Comments Blood Pressure 103/59 11/21/2019 4:14 PM EDT Pulse 81 11/21/2019 4:14 PM EDT Temperature 36.9 C (98.5 F) 11/21/2019 1:46 PM EDT Respiratory Rate 16 11/21/2019 4:14 PM EDT Oxygen Saturation 94% 11/21/2019 4:14 PM EDT Inhaled Oxygen Concentration - - Weight 91.2 kg (201 lb) 11/21/2019 1:46 PM EDT Height 154.9 cm (5' 1 ) 11/21/2019 1:46 PM EDT Body Mass Index 37.98 11/21/2019 1:46 PM EDT Plan of Treatment Health Maintenance Due Date Last Done Comments ANNUAL PHYSICAL 1960 DXA SCAN 1960 HEPATITIS C SCREENING 1960 TDAP/TD VACCINES (1 - Tdap) 1978 MAMMOGRAM 1999 COLOGUARD 2004 COLON CANCER SCREENING 5 YEAR SIGMOIDOSCOPY 2004 COLONOSCOPY 2004 [address] CANCER SCREENING 2004 CT COLONOGRAPHY 2004 FECAL OCCULT BLOOD TEST 2004 FIT Testing (1 year) 2004 Pneumococcal Vaccine 50+ (1 of 1 - PCV) 2009 ZOSTER VACCINE (1 of 2) 2009 COVID-19 Vaccine (1 - season) 2024 INFLUENZA VACCINE 05/31/2025 Insurance [employer] Care Teams Packing Room Inspector Relationship Specialty Start Date End Date Provider, [place] [address] PCP - General 11/21/19
--- OUTSIDE RECORDS SUMMARY | 2025-04-19 13:35 | XMS_ITS | Clinical Summary ---
Author Organization Healthcare Address [address] [place] [address] Care Team Providers Care Nursing Coordinator Name Role Phone Nya Segura APRN Unavailable [phone] Ronal Duong APRN Primary Care Provider [phone] Allergies No known active allergies Medications phentermine [...] (2 of 2 - PCV) 07/01/2021 07/01/2020 [id number] Vaccine ( season) 2024 07/22/2021, 12/25/2020, 12/06/2020 [...] provider. us Historical Provider GI PROCEDURE ORDERABLES Daly l Result * Mammography Breast Screening Tomosynthesis Bilateral [...] of Service: 05/24/2020 eferring Phy:Lily Goncalves M.D.Account: [id number] Dictated By: Jeremiah Bhandari M.D. Verified By: [...] compared to prior imaging studies performed at [facility] on 03/25/2018, 04/13/2018 and 04/27/2019. [...] on May 25 2020 10:11A Transcribed by: [facility] on May 25 2020 10:11A Dictated by: JEREMIAH BHANDARI M.D. on May 25 2020 10:11A Patient Name:Machelle Man : 1960 Age: 59 Gender: femaleDate of Service: 05/24/2020 eferring Phy:Lily Goncalves M.D.Account: [id number] Lily Goncalves M.D. [facility] [address] [place] [id number] FINAL REPORT PROCEDURE: Tomosynthesis Bilateral Screening - [...] compared to prior imaging studies performed at [facility] on 03/25/2018, 04/13/2018 and 04/27/2019. [...] compared to prior imaging studies performed at [facility] on 03/25/2018, 04/13/2018 and 04/27/2019. [...] femaleDate of Service:05/24/2020 eferring Phy:Lily Goncalves M.D.Account: [id number] Lily Goncalves M.D. [facility] [address] [place] [address] FINAL REPORT PROCEDURE: Tomosynthesis Bilateral Screening - [...] been compared to prior imaging studiesperformed at [facility] on 03/25/2018, 04/13/2018 and 04/27/2019. [...] Age: 59 Gender: femaleDate of Service:05/24/2020 eferring Lucie:Lily Goncalves M.D.Account: [id number] Dictated By: Jeremiah Bhandari M.D. Verified By: Jeremiah Bhandari M.D. on 05/25/2020 at 10:06:41 AM Page 2 of 2 Lily Gocnalves IMG BI PROCEDURES Final Result from Last 3 Months or Most Recently Relevant to Health Maintenance Insurance [employer]P [id number] [employer] MEDICARE Care Teams Nursing Coordinator Relationship Specialty Start Date End Date Ronal Duong APRN [address] [place] [address] [place] [address] PCP - General 08/06/21 Nya Segura APRN [id number] [place] [address] Nurse Practitioner Neurosurgery 08/06/21
--- OUTSIDE RECORDS SUMMARY | 2025-04-19 13:35 | XMS_ITS | Encounter Summary ---
Author Organization [facility] Address [address] [place] [address] Care Team Providers Care Pipe Coverer Helper Name Role Phone Castine, Lily Sheppard Primary Care Provider [phone] Nya Segura ROLLOUT MANAGER Unavailable [phone] Ronal Duong APRN Primary Care Provider [phone] Reason for Referral * Consultation (Routine) - Closed Specialty Diagnoses / Procedures Referred By Geo collazo Referred To Contact Neurosurgery Diagnoses Herniated lumbar intervertebral disc Ronal Duong APRN [address] [place] [address] Phone: tel: fax: Referral ID Status Reason Start Date Expiration Date V isits Requested Visits Authorized [id number] Closed Specialty Services Required 06/27/2021 12/27/2022 1 1 Encounter Details Date Type Department Care Team (Latest Contact Info) Description 06/27/2021 Community [facility] Community Practice [address] [place] [address] Ronal Duong APRN [address] [place] [address] Herniated lumbar intervertebral disc (Primary Dx) Social [...] myelopathy documented in this encounter Care Teams Pipe Coverer Helper Relationship Specialty Start Date End Date Lily Davies [address] [place] [address] PCP - General 01/11/21 08/05/21 Ronal Duong APRN [address] [place] [address] PCP - General 08/06/21 Nya Segura APRN [id number] [place] [address] Nurse Practitioner Neurosurgery 08/06/21 documented as of this encounter
--- NOTE | 2025-04-19 14:07 | A.OFFVIS_ITS ---
[facility] Disclaimer: The information contained in this section may have been updated after the patient was seen, as this information can be updated by other users. Medical History Sinusitis Acute bronchitis Chest pain Family History Other No significant family history Social History Smoking Status: Never smoker alcohol intake: never substance use type: former substance user and opiates current occupational status: employed Travel in the last 8 weeks?: None household members: spouse housing: house current occupational exposures/hazards: No caffeine: Yes PM Subjective & Objective Subjective Subjective:: Patient is a pleasant 64-year-old female who presents today for worsening pain and medication refill. She does rate her pain is 6 out of 10. Patient states she has pain throughout multiple areas including her right knee, back and numbness and tingling into her bilateral hands with chronic neck pain. Patient denies any new falls or injuries. Patient states that she is scheduled to see her primary care on the third and her arthritis doctor on the ninth. Patient does state that the pain in her hands is constant and is interfering with her sleep and ability to perform activities of daily living such as cooking and cleaning. Patient is interested in any help we may be able to provide. She does even feel like she has her right hand has a couple fingers that drawl up. Patient is currently managed with diclofenac 75 mg twice a day, gabapentin 100 mg 3 times a day and Bolton 5 mg 3 times a day. She denies any side effects. Her Juan Luis has been reviewed and is appropriate. Review of Systems: General: No recent weight changes, no fever, no sleep disturbances Respiratory: No cough, no shortness of air, no recurring pulmonary infections Cardiovascular/peripheral vascular: No chest pain, no palpitations, no edema, no shortness of breath Gastrointestinal: No new onset incontinence, normal bowel movements reported Genitourinary: No new onset incontinence Musculoskeletal: Chronic neck pain, bilateral arm numbness tingling, right knee pain, low back pain Psychiatric: [Normal mood/affect] Neurological: [Denies weakness in extremities], [denies balance issues] Pain at rest (0-10 scale): 6 Objective Objective:: Physical Exam: General: Alert and oriented x3, no acute distress, pleasant and cooperative Lungs: Respirations even and unlabored, symmetrical chest expansion Eyes: PERRL Musculoskeletal: Flexion and extension of cervical [spine] somewhat guarded secondary to pain, [antalgic gait noted] positive Spurling's test Neurological: Speech clear, no gross sensory deficit Has patient had previous pain injection?: No Conservative treatment options previously tried: Home exercise plan Length of treatment: Longer than 12 weeks Meds Home Medications and Allergies Home Medications ?Medication ?Instructions ?Recorded ?Confirmed ?Type naproxen 500 mg tablet 500 mg PO BID Pain #0 tabs 0 04/07/22 03/15/25 Rx furosemide 20 mg tablet See Rx Instructions .Route 0 12/04/22 03/15/25 History .COMPLEX Fluid albuterol sulfate 90 mcg/actuation 2 puff inhalation Q 6H PRN 02/15/24 03/15/25 Rx aerosol inhaler (Ventolin HFA) shortness of breath or wheezing #6.7 grams lidocaine 5 % topical patch 1 patch topical DAILY #30 ea 05/05/24 03/15/25 Rx methocarbamol 750 mg tablet 1,500 mg (2 x 750 mg) PO T ID 5 05/05/24 03/15/25 Rx days #30 tabs omeprazole 20 mg capsule,delayed See Rx Instructions . Route 01/13/25 03/15/25 Rx release .COMPLEX #90 caps diclofenac sodium 75 mg 75 mg PO BID #60 tabs Rx tablet,delayed release gabapentin 100 mg capsule 100 mg PO TID #90 caps 03/15 Rx hydrocodone 5 mg-acetaminophen 325 1 tab PO TID #90 ta bs 03/15/25 Rx mg tablet lisinopril 5 mg tablet See Rx Instructions .Route 0 04/04/25 Rx .COMPLEX #90 tabs New Prescriptions to Start Prescriptions: Allergies Allergy/AdvReac Type Severity Reaction Status Date / Time No Known Allergies Allergy Verified 01/25/25 09:16 Assessment and Plan *Assessment and plan (1) Degenerative disc disease, cervical: Status: Acute Category: Medical Code(s): M50.30 - Other cervical disc degeneration, unspecified cervical region (2) Cervical radiculopathy: Status: Acute Category: Medical Code(s): M54.12 - Radiculopathy, cervical region Plan Patient is experiencing worsening pain in their neck with radiating tingling and burning sensations into their bilateral upper extremities. Patient did have limited range of motion of her cervical spine with a positive Spurling's test. I did discuss with the patient that I do believe they would benefit from a cervical epidural steroid injection. Risk and benefits were discussed with patient and they would like to proceed forward with this plan of care. Patient has tried and failed conservative therapy including oral medications, heat and ice, topicals, at home stretching exercise for longer than 12 weeks that was physician guided. Patient had her last cervical epidural in 2021 that did provide 70 to 80% relief and lasted well over 3 months. Patient has had chronic pain in her neck for years. Patient has not required another cervical epidural since. Patient will be scheduled for a JOSE C6-C7 under fluoroscopy. I will also refill her diclofenac, gabapentin and Bolton. Patient denies any blood thinners. Patient has been instructed to contact the clinic with any concerns before the next appointment. Dr. Abad has reviewed this note and agrees with this plan of care. This note was dictated using voice recognition software and make contain errors or omissions. All injections are used with Lidocaine, Bupivacaine and dexamethasone unless otherwise stated as a diagnostic in which it has no steroid. Occasionally urine drug screen is needed to verify patient's compliance with our office pain contract. This is ordered based off specific treatments related to chronic pain with the potential to abuse certain medications.
== END 2025-04-19 23:59 | disposition home or self-care (01) ==
PROVIDERS: PCP Nurse Practitioner Family; Visit Provider Nurse Practitioner Family
DX: M50.123 Cervical disc disorder at C6-C7 level with radiculopathy (principal); Z79.1 Long term (current) use of non-steroidal anti-inflammatories (NSAID); Z79.899 Other long term (current) drug therapy; Z79.891 Long term (current) use of opiate analgesic

== ENCOUNTER 2025-05-13 07:57 | Emergency (ER) | payer MEDICARE, SELFPAY ==
[2025-05-13] VITALS (12 sets, daily range): BP systolic 130–176; BP diastolic 62–94; PULSE 44–71; RESP 15–17; TEMP 36.8; O2SAT 90–100; BMI 34.7
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
[2025-05-13] MEDS: ACETAMINOPHEN 500MG TAB 1000 MG PO (08:43)
[2025-05-13] MEDS: IBUPROFEN 600 MG TABLET PO (08:43)
[2025-05-13] MEDS: METHOCARBAMOL 500MG TABLET 1000 MG PO (08:43)
[2025-05-13] MEDS: LIDOCAINE 5% TRANSDERMAL PATCH 1 EACH TD (09:05)
== END 2025-05-13 11:43 | disposition home or self-care (01) ==
PROVIDERS: Emergency Provider Student in an Organized Health Care Education/Training Program; PCP Nurse Practitioner Family
DX: S16.1XXA Strain of muscle, fascia and tendon at neck level, initial encounter (principal); V43.52XA Car driver injured in collision with other type car in traffic accident, initial encounter
CPT/HCPCS: 71045; 72125; 73030; 99285

== ENCOUNTER 2025-06-14 11:50 | Outpatient (CLI) | payer MEDICARE, SELFPAY ==
--- OUTSIDE RECORDS SUMMARY | 2025-06-14 11:52 | XMS_ITS | Clinical Summary ---
Author Organization Healthcare Address [address] [place] [address] Care Team Providers Care Mechanical And Auto Body Car Checker Name Role Phone Nya Segura APRN Unavailable [phone] Ronal Duong APRN Primary Care Provider [phone] Allergies No known active allergies Medications phentermine [...] [facility]-Bone Density Scan 1959 [facility]-Depression Screening 1959 [facility]-Infant/Child/Adol SDOH Screenings 1959 [facility]- SDOH Screenings 1977 [facility]-Adult SDOH Screenings 1977 [facility]-DTaP,Tdap,and Td Vaccine s (1 - Tdap) 1978 [facility]-Pap Smear 1980 [facility]-Cervical Cancer Screening 1989 [facility]-HPV/Cotest 1989 CT Colonography 2004 FIT-DNA 2004 FIT 2004 FOBT 2004 Sigmoidoscopy 2004 [facility]-Zoster Vaccines (1 of 2) 2009 [facility]-Pneumococcal Vaccine: 50 + Years (2 of 2 - PCV) 07/01/2021 07/01/2020 [id number] Vaccine (4 - season) 2025 07/22/2021, 12/25/2020, 12/06/2020 [facility]-Influenza Vaccine (#1) 05/01/202505/18, [...] of Service: 05/24/2020 eferring Phy:Lily Goncalves M.D.Account: [id number] Dictated By: Jeremiah Bhandari M.D. Verified By: [...] compared to prior imaging studies performed at [facility] on 03/25/2018, 04/13/2018 and 04/27/2019. FINDINGS: MAMMOGRAM [...] on May 25 2020 10:11A Transcribed by: [facility] on May 25 2020 10:11A Dictated by: JEREMIAH BHANDARI M.D. on May 25 2020 10:11A Patient Name:Machelle Man : 1960 Age: 59 Gender: femaleDate of Service: 05/24/2020 eferring Phy:Lily Goncalves M.D.Account: [id number] Lily Goncalves M.D. [facility] [address] [place] [id number] FINAL REPORT PROCEDURE: Tomosynthesis Bilateral Screening - [...] compared to prior imaging studies performed at [facility] on 03/25/2018, 04/13/2018 and 04/27/2019. FINDINGS: MAMMOGRAM [...] compared to prior imaging studies performed at [facility] on 03/25/2018, 04/13/2018 and 04/27/2019. FINDINGS: MAMMOGRAM [...] femaleDate of Service:05/24/2020 eferring Phy:Lily Goncalves M.D.Account: [id number] Lily Goncalves M.D. [facility] [address] [place] [address] FINAL REPORT PROCEDURE: Tomosynthesis Bilateral Screening - [...] been compared to prior imaging studiesperformed at [facility] on 03/25/2018, 04/13/2018 and 04/27/2019. FINDINGS: MAMMOGRAM [...] femaleDate of Service:05/24/2020 eferring Lucie:Lily Goncalves M.D.Account: [id number] Dictated By: Jeremiah Bhandari M.D. Verified By: Jeremiah Bhandari M.D. on 05/25/2020 at 10:06:41 AM Page 2 of 2 Lily Goncalves IMG BI PROCEDURES Final Result from Last 3 Months or Most Recently Relevant to Health Maintenance Insurance [employer] TRIPP [id number] JOSE MEDICARE Care Teams Mechanical And Auto Body Car Checker Relationship Specialty Start Date End Date Ronal Duong APRN [address] [place] [address] FELIPE Ray [id number] PCP - General 08/06/21 Nya Segura APRN [address] [facility] [address] [place] [address] Nurse Practitioner Neurosurgery 08/06/21
--- NOTE | 2025-06-14 11:53 | XR_ITS ---
FINAL REPORT CLINICAL HISTORY: left wrist pain / CARPAL TUNNEL , NO INJURY FINDINGS: AP, oblique, and lateral views of the left wrist were obtained. There is no prior exam for comparison. There is no acute fracture or dislocation. Degenerative joint disease at the first carpometacarpal joint. The soft tissues are normal. IMPRESSION: Degenerative change without acute osseous abnormality of the left wrist. Reviewed, Interpreted and Dictated by Alyssa Hill MD Transcribed by Jessy Koo Authenticated and [facility]
--- NOTE | 2025-06-14 11:53 | XR_ITS ---
FINAL REPORT CLINICAL HISTORY: right wrist pain / CARPAL TUNNEL , NO INJURY FINDINGS: AP, oblique, and lateral views of the right wrist were obtained. There is no prior exam for comparison. There is no acute fracture or dislocation. Degenerative joint disease is most pronounced at the first carpometacarpal joint. The soft tissues are normal. IMPRESSION: Degenerative change without acute osseous abnormality of the right wrist. Reviewed, Interpreted and Dictated by Alyssa Hill MD Transcribed by Jessy Koo Authenticated and [facility]
--- OUTSIDE RECORDS SUMMARY | 2025-06-14 11:53 | XMS_ITS | Clinical Summary ---
Author Organization [facility] Address [address] [place] [address] Care Team Providers Care Laser Print Operator Name Role Phone Provider, No Known Primary [...] 2009 ZOSTER VACCINE (1 of 2) 2009 INFLUENZA VACCINE 03/31/2025 COVID-19 Vaccine (1 - 2023- season) 2025 Insurance [employer] Care Teams Laser Print Operator Relationship Specialty Start Date End Date Provider, [place] [address] PCP - General 11/21/19
--- OUTSIDE RECORDS SUMMARY | 2025-06-14 11:53 | XMS_ITS | Encounter Summary ---
Author Organization [facility] Address [address] [place] [address] Care Team Providers Care Wood Patternmaker Name Role Phone Samson Lily Sheppard Primary Care Provider [phone] Nya Segura CASH POSTING CLERK Unavailable [phone] Ronal Duong APRN Primary Care Provider [phone] Reason for Referral * Consultation (Routine) - Closed Specialty Diagnoses / Procedures Referred By Geo collazo Referred To Contact Neurosurgery Diagnoses Herniated lumbar intervertebral disc Ronal Duong, STAR [address] [place] [address] Phone: tel: fax: Referral ID Status Reason Start Date Expiration Date V isits Requested Visits Authorized [id number] Closed Specialty Services Required 06/27/2021 12/27/2022 1 1 Encounter Details Date Type Department Care Team (Latest Contact Info) Description 06/27/2021 [facility] [address] [place] [address] Ronal Duong, CASH POSTING CLERK [address] [place] [address] Herniated lumbar intervertebral disc (Primary Dx) Social [...] myelopathy documented in this encounter Care Teams Wood Patternmaker Relationship Specialty Start Date End Date Lily Davies [address] [place] [address] PCP - General 01/11/21 08/05/21 Ronal Duong APRN [address] [place] [address] PCP - General 08/06/21 Nya Segura APRN [address] [facility] [address] [place] [address] Nurse Practitioner Neurosurgery 08/06/21 documented as of this encounter
== END 2025-06-14 23:59 | disposition home or self-care (01) ==
LOC: RAD 11:51
PROVIDERS: PCP Nurse Practitioner Family; Visit Provider Physician Assistant
DX: M18.0 Bilateral primary osteoarthritis of first carpometacarpal joints (principal)
CPT/HCPCS: 73110

== ENCOUNTER 2025-06-15 17:06 | Emergency (ER) | payer MEDICARE, SELFPAY ==
[2025-06-15 17:07] VITALS: BP 187/77; PULSE 65; RESP 18; TEMP 36.6; O2SAT 100; BMI 35.6
--- OUTSIDE RECORDS SUMMARY | 2025-06-15 17:21 | XMS_ITS | Encounter Summary ---
Author Organization [facility] Address [address] [place] [address] Care Team Providers Care Transcriber Name Role Phone Samson Lily Sheppard Primary Care Provider [phone] Nya Segura DATA TRANSCRIBER Unavailable [phone] Ronal uDong APRN Primary Care Provider [phone] Reason for Referral * Consultation (Routine) - Closed Specialty Diagnoses / Procedures Referred By Geo collazo Referred To Contact Neurosurgery Diagnoses Herniated lumbar intervertebral disc Ronal Duong, STAR [address] [place] [address] Phone: tel: fax: Referral ID Status Reason Start Date Expiration Date V isits Requested Visits Authorized [id number] Closed Specialty Services Required 06/27/2021 12/27/2022 1 1 Encounter Details Date Type Department Care Team (Latest Contact Info) Description 06/27/2021 [facility] [address] [place] [address] Ronal Duong, DATA TRANSCRIBER [address] [place] [address] Herniated lumbar intervertebral disc (Primary Dx) Social [...] myelopathy documented in this encounter Care Teams Transcriber Relationship Specialty Start Date End Date Lily Davies [address] [place] [address] PCP - General 01/11/21 08/05/21 Ronal Duong APRN [address] [place] [address] PCP - General 08/06/21 Nya Segura APRN [address] [facility] [address] [place] [address] Nurse Practitioner Neurosurgery 08/06/21 documented as of this encounter
--- OUTSIDE RECORDS SUMMARY | 2025-06-15 17:21 | XMS_ITS | Clinical Summary ---
Author Organization Healthcare Address [address] [place] [address] Care Team Providers Care Oil And Gas Specialist Name Role Phone Nya Segura APRN Unavailable [phone] Ronal Duong APRN Primary Care Provider [phone] Allergies No known active allergies Medications phentermine [...] (2 of 2 - PCV) 07/01/2021 07/01/2020 [id number] Vaccine (4 - season) 2025 07/22/2021, 12/25/2020, [...] of Service: 05/24/2020 eferring Phy:Lily Goncalves M.D.Account: [id number] Dictated By: Jeremiah Bhandari M.D. Verified By: [...] compared to prior imaging studies performed at [facility] on 03/25/2018, 04/13/2018 and 04/27/2019. FINDINGS: [...] on May 25 2020 10:11A Transcribed by: [facility] on May 25 2020 10:11A Dictated by: JEREMIAH BHANDARI M.D. on May 25 2020 10:11A Patient Name:Machelle Man : 1960 Age: 59 Gender: femaleDate of Service: 05/24/2020 eferring Phy:Lily Goncalves M.D.Account: [id number] Lily Goncalves M.D. [facility] [address] [place] [id number] FINAL REPORT PROCEDURE: Tomosynthesis Bilateral Screening - [...] compared to prior imaging studies performed at [facility] on 03/25/2018, 04/13/2018 and 04/27/2019. FINDINGS: [...] compared to prior imaging studies performed at [facility] on 03/25/2018, 04/13/2018 and 04/27/2019. FINDINGS: [...] femaleDate of Service:05/24/2020 eferring Phy:Lily Goncalves M.D.Account: [id number] Lily Goncalves M.D. [facility] [address] [place] [address] FINAL REPORT PROCEDURE: Tomosynthesis Bilateral Screening - [...] been compared to prior imaging studiesperformed at [facility] on 03/25/2018, 04/13/2018 and 04/27/2019. FINDINGS: [...] femaleDate of Service:05/24/2020 eferring Lucie:Lily Goncalves M.D.Account: [id number] Dictated By: Jeremiah Bhandari M.D. Verified By: Jeremiah Bhandari M.D. on 05/25/2020 at 10:06:41 AM Page 2 of 2 Lily Goncalves IMG BI PROCEDURES Final Result from Last 3 Months or Most Recently Relevant to Health Maintenance Insurance [employer] [id number] JOSE MEDICARE Care Teams Oil And Gas Specialist Relationship Specialty Start Date End Date Ronal Duong APRN [address] [place] [address] FELIPE Ray [id number] PCP - General 08/06/21 Nya Segura APRN [address] [facility] [address] [place] [address] Nurse Practitioner Neurosurgery 08/06/21
--- OUTSIDE RECORDS SUMMARY | 2025-06-15 17:21 | XMS_ITS | Clinical Summary ---
Author Organization [facility] ystem Address [address] [place] [address] Care Team Providers Care Apparatus Engineering Technologist Name Role Phone Provider, No Known Primary [...] 2025 Insurance [employer] Care Teams Apparatus Engineering Technologist Relationship Specialty Start Date End Date Provider, [place] [address] PCP - General 11/21/19
--- NOTE | 2025-06-15 17:30 | HMH.EDGENADL ---
Discharge Plan Disposition Patient Disposition: Home, Self-Care Condition: Good Prescriptions Prescriptions: No Action hydrocodone-acetaminophen 7.5-325 mg tablet 1 tab PO TID PRN albuterol sulfate [Ventolin HFA] 90 mcg/actuation HFA aerosol inhaler 2 puff inhalation Q6H PRN (Reason: shortness of breath or wheezing) Qty: 6.7 2RF lisinopril 5 mg tablet See Rx Instructions .ROUTE .COMPLEX Qty: 90 0RF Dose Instruction: Take 1 tablet by mouth once daily Rx Instructions: Take 1 tablet by mouth once daily diclofenac sodium 75 mg tablet,delayed release (DR/EC) 75 mg PO BID Qty: 60 0RF gabapentin 100 mg capsule 100 mg PO TID Qty: 90 0RF lidocaine 4 % adhesive patch,medicated 1 patch topical DAILY PRN (Reason: pain) Qty: 10 0RF furosemide 20 mg tablet See Rx Instructions .ROUTE .COMPLEX Rx Instructions: TAKE 1 TABLET BY MOUTH ONCE DAILY FOR EDEMA Referrals Follow up/Referrals: Ronal Duong APRN [Primary Care Provider, Family Practice] - See instructions Activity Restrictions/Add. Instructions Additional Instructions/Restrictions: Will need to follow-up with your regular doctor or the orthopedic doctor for further pain management regarding your carpal tunnel. You can take Tylenol and Motrin as needed an additional to your prescribed pain medications. Follow-up with your PCP tomorrow as scheduled. Clinical Impressions Clinical Impression: Carpal tunnel syndrome, Acute wrist pain Print Language Print Language: Maori Discharge ED Provider: Kia Field Adult HPI General Chief complaint: PAIN Stated complaint: Right Wrist Pain Time Seen by Provider: 06/15/25 17:26 Mode of Arrival: Ambulatory Source of Information: Patient Description of Symptoms (Recalled from ER Triage Doc. by RN): patient presents to the Ed for carpal tunnel pain. patient states the pain is 10/10. she has seen orthopedics for it and surgery is scheduled for 07/04/25. she cannot tolerate the pain anymore. History of Present Illness HPI narrative: Patient is a 64-year-old female who presented to the emergency department with bilateral wrist pain. Patient states that she was diagnosed with carpal tunnel today in orthopedic clinic. Patient states that she is scheduled for surgery on July 04. Patient is here with pain. Patient states that she was offered steroid injections in clinic today but they said that that would prolong her surgery and therefore she declined this. Patient states that she has not been able to sleep at night secondary to the pain. Has no other concerns at this time. States that she has been wearing her wrist splints at home to help as well. Related Data Home Medications ?Medication ?Instructions ?Recorded ?Confirmed furosemide 20 mg tablet See Rx Instructions .Route 12/04/22 06/15/25 .COMPLEX Fluid hydrocodone 7.5 mg-acetaminophen 1 tab PO TID PRN 05/23/25 06/15/25 325 mg tablet Previous Rx's ?Medication ?Instructions ?Recorded albuterol sulfate 90 mcg/actuation 2 puff inhalation Q6H PRN 02/15/24 aerosol inhaler (Ventolin HFA) shortness of breath or wheezing #6.7 grams lisinopril 5 mg tablet See Rx Instructions .Route 04/04/25 .COMPLEX #90 tabs lidocaine 4 % topical patch 1 patch topical DAILY PRN pain #10 05/13/25 ea diclofenac sodium 75 mg 75 mg PO BID #60 tabs 05/17/25 tablet,delayed release gabapentin 100 mg capsule 100 mg PO TID #90 caps 05/17/25 Allergies Allergy/AdvReac Type Severity Reaction Status Date / Time No Known Allergies Allergy Verified 06/15/25 13:12 [facility] Disclaimer: The information contained in this section may have been updated after the patient was seen, as this information can be updated by other users. Medical History Sinusitis Acute bronchitis Chest pain Family History Other No significant family history Social History Smoking Status: Never smoker alcohol intake: never substance use type: former substance user and opiates current occupational status: employed Travel in the last 8 weeks?: None household members: spouse housing: house current occupational exposures/hazards: No caffeine: Yes Have you lived/traveled outside US in past 30 days?: No Contact w/someone who lives/traveled outside US past 30 days?: No Exposure to someone with infectious disease in past 14 days?: No Do you have a fever (greater than 100.4 F or 38 C)?: No Have you tested positive for COVID-19?: No Exposed to someone with COVID-19 in past 14 days?: No Do you have a sore throat?: No Do you have a cough?: No Do you have any weakness?: No Do you have any diarrhea?: No Are you experiencing any unusual bleeding?: No Do you have any muscle aches/pain?: No Do you have any abdominal pain?: No Are you experiencing loss of taste or smell?: No Other Medical History Have you received the Flu Vaccine for this season: Yes Have you received the Pneumonia Vaccine: No ROS Obtained: Yes All systems reviewed & no additional complaints except as documented and Yes Systems reviewed as appropriate & no additional complaints except as documented Physical Exam General General appearance: alert and in no apparent distress Head Head exam: atraumatic, normocephalic and normal inspection Eye Eye exam: Present normal appearance, PERRL and EOMI; Absent scleral icterus ENT ENT exam: Present normal exam and normal external ear exam Neck Neck exam: Present normal inspection and full ROM Chest Chest inspection: Present normal inspection and symmetric chest wall rise Respiratory Respiratory exam: Present normal lung sounds bilaterally; Absent respiratory distress or wheezes Cardiovascular Cardiovascular exam: Present regular rate, normal rhythm and normal heart sounds Abdominal Exam Abdominal exam: Present soft and distention; Absent tenderness, guarding or rebound Extremities Exam Extremities exam: Present normal inspection, full ROM and other (bilateral wrist with tenderness with phalen test, NVI, 2+ radial pulse) Back Exam Back exam: Present normal inspection and full ROM Neurological Exam Neurological exam: Present alert and oriented X3 Psychiatric Psychiatric exam: Present normal affect and normal mood Skin Skin exam: Present warm and dry Medical Decision Making Medical Records Medical records reviewed: Yes I reviewed the patient's medical records. Screening: Per USPSTF and CDC recommendations, given the prevalence of disease in our region, it is our hospital?s policy to screen for HIV and viral Hepatitis for all patients aged 18 and over and those with ongoing risk factors. Juan Luis Inquiry Pt receiving controlled substance: No Vital Signs: 06/15/25 17:07 Temperature 97.8 F Temperature Source Oral Pulse Rate [Right Radial] 65 Respiratory Rate 18 Blood Pressure [Right Arm] 187/77 H Blood Pressure Mean [Right Arm] 113 Blood Pressure Source [Right Arm] Automatic Cuff Blood Pressure Position [Right Arm] Sitting 02 Sat by Pulse Oximetry 100 Oxygen Delivery Method Room Air Lab Data Lab results reviewed: Yes I reviewed the patient's lab results. Orders (Tests/Meds): ED MEDICATIONS Discontinued Medications Generic Name Dose Route Start Last Admin Trade Name Madhu PRN Reason Stop Dose Admin Acetaminophen 1,000 mg 06/15/25 17:38 06/15/25 17:51 Acetaminophen 500mg Tab PO 06/15/25 17:39 1,000 mg ONCE ONE Administration Ibuprofen 800 mg 06/15/25 17:39 06/15/25 17:51 Ibuprofen 800 Mg Tablet PO 06/15/25 17:40 800 mg ONCE ONE Administration Oxycodone HCl 5 mg 06/15/25 17:38 06/15/25 17:51 Oxycodone 5mg Immediate Release Tablet PO 06/15/25 17:39 5 mg ONCE ONE Administration Medical Decision Narrative: Patient is a 64-year-old female with a past medical history of recently diagnosed carpal tunnel syndrome who presents to the emergency department with bilateral wrist pain. On arrival, patient was hemodynamically stable with unremarkable vital signs. Differential includes but not limited to: Acute on chronic carpal tunnel syndrome, fracture, dislocation, nerve injury, amongst others. Was seen in orthopedic clinic today by Dr. Salcedo and diagnosed with carpal tunnel syndrome. Patient was offered steroid injections today which she declined. Patient already follows with pain management. Patient states that she has been unable to sleep secondary to the pain. Patient states she has a follow-up appoint with her primary care provider tomorrow. Patient has not had any acute trauma or falls therefore low concern for fracture or other acute bony abnormality. Patient was otherwise neurovascularly intact with appropriate 2+ radial pulses. Patient was given Tylenol Motrin and a dose of oxycodone in the emergency department but patient was otherwise discharged home. Patient was advised follow-up with her primary care provider as scheduled tomorrow in clinic for further pain management if needed. Patient was otherwise discharged home in stable condition return precautions were discussed. Critical Care Critical Care Time Critical Care Time: No
[2025-06-15] MEDS: ACETAMINOPHEN 500MG TAB 1000 MG PO (17:51)
[2025-06-15] MEDS: IBUPROFEN 800 MG TABLET PO (17:51)
[2025-06-15] MEDS: OXYCODONE 5MG IMMEDIATE RELEASE TABLET 5 MG PO (17:51)
[2025-06-15 18:28] VITALS: BP 187/77; PULSE 65; RESP 18; TEMP 36.6; O2SAT 100
== END 2025-06-15 18:29 | disposition home or self-care (01) ==
PROVIDERS: Emergency Provider Student in an Organized Health Care Education/Training Program; PCP Nurse Practitioner Family
DX: M25.531 Pain in right wrist (principal); M25.532 Pain in left wrist; G56.03 Carpal tunnel syndrome, bilateral upper limbs
CPT/HCPCS: 99282; 99283

== ENCOUNTER 2025-06-30 12:12 | Outpatient (CLI) | payer MEDICARE, SELFPAY ==
--- NOTE | 2025-06-30 13:31 | ECG_ITS ---
APPROVED REPORT Exam: Resting ECG HR:54 bpm ECG Measurements Heart Rate 54 AXES TN 146 P 54 QRSd 81 QRS -6 QT 426 T 12 QTc 412 Conclusion SINUS BRADYCARDIA MODERATE VOLTAGE CRITERIA FOR LVH, CONSIDER NORMAL VARIANT [MEETS CRITERIA IN ONE OF: R(aVL), S(V1), R(V5), R(V5/V6)+S(V1)] POSSIBLE ANTERIOR MYOCARDIAL INFARCTION , PROBABLY OLD [30 ms Q WAVE IN V3/V4, OR R < 0.2 mV IN V4] BORDERLINE ECG UNCONFIRMED REPORT Electronically signed by : Vlad Pang MD 07/03/2025 08:42:36
== END 2025-06-30 23:59 | disposition home or self-care (01) ==
LOC: PREOP 12:13
PROVIDERS: PCP Nurse Practitioner Family; Visit Provider Orthopaedic Surgery
DX: Z01.810 Encounter for preprocedural cardiovascular examination (principal); R00.1 Bradycardia, unspecified; R94.31 Abnormal electrocardiogram [ECG] [EKG]
CPT/HCPCS: 93005

== ENCOUNTER 2025-07-04 06:29 | Day surgery (SDC) | payer MEDICARE, SELFPAY ==
[2025-06-30 08:35] VITALS: BMI 35.3
[2025-06-30 13:54] VITALS: BMI 35.3
[2025-06-30 14:01] LABS: Hematocrit 37.8 % (37.0-47.0); Hemoglobin 12.9 g/dL (12.2-16.2); Immature Granulocytes % 0.4 %; Mean Corpuscular HGB Conc 34.1 g/dL (31.8-35.4); Mean Corpuscular Hemoglobin 31.2 pg (27.0-31.2); Mean Corpuscular Volume 91.5 fl (81-99); Nucleated Red Blood Cells % 0 %; Platelet Count 217 K/mm3 (142-424); Red Blood Count 4.13 M/mm3 (4.20-5.40); Red Cell Distribution Width-SD 41.9 fL; White Blood Count 10.4 K/mm3 (4.8-10.8)
[2025-06-30 14:13] LABS: Anion Gap 9.8 mEq/L (5-15); Blood Urea Nitrogen 22 mg/dl (7-17); Calcium 9.1 mg/dl (8.4-10.2); Carbon Dioxide 30 mmol/L (22.0-30.0); Chloride 100 mmol/L (98-107); Creatinine Clearance Estimated 68 mL/min (50-200); Creatinine,Serum 1.10 mg/dl (0.52-1.04); Estimated Glomerular Filt Rate 50 ml/min (>60); GFR (African American) 60 ML/MIN (>60); Glucose 126 mg/dl (74-100); Potassium 3.8 mmoL/L (3.5-5.1); Sodium 136 mmol/L (136-145)
[2025-07-04] VITALS (10 sets, daily range): BP systolic 107–166; BP diastolic 74–91; PULSE 64–88; RESP 18; TEMP 36.1–36.8; O2SAT 95–99
[2025-07-04] MEDS: LACTATED RINGERS 1000ML 1,000 ML 100 ML IV (07:38)
--- NOTE | 2025-07-04 07:44 | EXP.ANES.CKL ---
[facility] Disclaimer: The information contained in this section may have been updated after the patient was seen, as this information can be updated by other users. Medical History History of gastroesophageal reflux (GERD) History of cataract Hypertension Sinusitis Acute bronchitis Chest pain Family History Other No significant family history Social History Smoking Status: Never smoker alcohol intake: never substance use type: former substance user and opiates current occupational status: employed Travel in the last 8 weeks?: None household members: spouse housing: house current occupational exposures/hazards: No caffeine: Yes Have you lived/traveled outside US in past 30 days?: No Contact w/someone who lives/traveled outside US past 30 days?: No Exposure to someone with infectious disease in past 14 days?: No Do you have a fever (greater than 100.4 F or 38 C)?: No Have you tested positive for COVID-19?: No Exposed to someone with COVID-19 in past 14 days?: No Do you have a sore throat?: No Do you have a cough?: No Do you have any weakness?: No Do you have any diarrhea?: No Are you experiencing any unusual bleeding?: No Do you have any muscle aches/pain?: No Do you have any abdominal pain?: No Are you experiencing loss of taste or smell?: No [facility] Anesthesia Checklist Patient Identification Patient Identification: Arm Band and Verbal (Name & ) Structural Data Admitted From: Home Planned Operative Procedure/s: carpel tunnel release Consent for Planned Operative Procedure(s) Verified: Yes Verified Documents: Surgical Consent and History and Physical NPO Status Verified Time NPO: 00:00 Additional verifications Anesthesia Reactions: No Hx Blood Transfusions: No Blood Transfusion Reaction: No Airway Assessment Mallampati Score:: Class II Dentition: Edentulous Neurological Assessment Level of Consciousness: Awake, Alert and Appropriate Hx Seizures: No Numbness or tingling in extremities: No Anesthesia Plan Anesthesia Risk discussed: Yes Anesthesia Plan: Verified ASA Class: II Anesthesia Type: General
[2025-07-04] MEDS: LIDOCAINE 1% W/EPI 1:100,000 20ML VIAL 20 ML (08:51)
--- NOTE | 2025-07-04 09:13 | EXP.ANES.I ---
[facility] Anesthesia Record Part I Anesthesia Record I Intake, IV Amount: 600 Hydration: Adequate Estimated blood loss (mL): 0 Urine output (mL): 0 Blood Pressure: 136/75 SaO2: 96 Pulse Rate: 75 Airway Patency: Patent Respiratory Rate: 18 Temperature: 98.2 F Patient is:: Awake and Stable Stable to PACU at:: 09:20
[2025-07-04] MEDS: KETOROLAC 30MG/ML VIAL 30 MG IV (09:25)
--- NOTE | 2025-07-04 09:37 | EXP.OP.NOTE ---
Date of procedure: 07/04/25 Pre-op Diagnosis:: Right carpal tunnel syndrome Post-op Diagnosis:: Same Procedure performed:: Right endoscopic carpal tunnel release Surgeon:: Trip Salcedo DO Data Security Analyst(s):: Dannie GARZA BORE MILL OPERATOR FOR PLASTIC:: Mirlande Page Anesthesia: LMA Estimated blood loss (mL): 0 Operative findings:: See dictation Operative note:: Patient identified preoperatively. Right wrist marked with yes my initials. Transferred operative suite. Placed upon operating bed. General anesthesia administered with LMA. Right upper extremity prepped and draped normal sterile fashion. Once prepped and draped final operative timeout performed to identify proper patient procedure and extremity. Everyone involved in case agreed. Is no counter indication getting. Did receive preoperative antibiotics. Marking pen was used to mikael planned incision over the volar wrist crease. Esmarch was used to exsanguinate the extremity. Pneumatic tourniquet flighted to 250 mmHg. Skin knife was used incise through skin careful dissection take down with the scissors and blunt Ragnell retractors placed to dissect and identify the most proximal aspect the transverse carpal ligament. Once identified small dilator followed by the larger dilator was placed into the carpal tunnel followed by the 4.0 mm right sided sled. This was then placed into the carpal tunnel. Camera was then placed transverse carpal ligament clearly seen superiorly within the camera the most distal aspect of transverse carpal ligament was identified with a probe rasp was used to remove the soft tissue from the undersurface and then the hook blade was utilized for opening transverse carpal ligaments entirety. This was directly visualized the camera once complete release was confirmed irrigation performed incision closed with Monocryl and Steri-Strips sterile hand dressing patient waken anesthesia taken recovery stable condition. Condition: stable Disposition: PACU Complications:: None apparent
[2025-07-04] MEDS: MORPHINE 2MG/ML SYRINGE 2 MG IV (09:40)
--- NOTE | 2025-07-04 11:26 | EXP.ANES.II ---
[facility] Anesthesia Record Part II Anesthesia Record Part II Discharge Time: 10:00 Destination: Surgical Day Care (OP Surgery) PACU nurse assessment reviewed?: Yes Patient Condition:: Good Anesthesia Complications:: None Swallowing reflex intact?: Yes Airway Patency: Patent Cyanosis?: No Blood Pressure: 157/80 SaO2: 99 Respiratory Rate: 18 Pulse Rate: 68 Temperature: 97.2 F Mental Status: Alert & Oriented Pain level:: 0 Nausea and/or vomitting:: None Intake, IV Amount: 0 Hydration: Adequate
== END 2025-07-04 10:15 | disposition home or self-care (01) ==
PROVIDERS: PCP Nurse Practitioner Family; Visit Provider Orthopaedic Surgery
PROC: (CPT 64721; principal; 2025-07-04 09:30)
DX: G56.03 Carpal tunnel syndrome, bilateral upper limbs (principal)
CPT/HCPCS: 29848; 80048; 85025; 96374; J0690; J1100; J1885; J2003; J2004; J2250; J2270; J2405; J2704; J3010; J7120